=== PATIENT | female | born 1955 | race Caucasian/White ===

== ENCOUNTER 2022-01-05 13:35 | Inpatient (IN) ==
[2022-01-05] MEDS ORDERED: MoRPHine SULFATE 4 MG/ML 1 ML CARP\\VIAL IV STA (15:11)
[2022-01-05] MEDS ORDERED: ONDANSETRON INJ 2 MG/ML 2 ML VIAL IV STA (15:13)
[2022-01-05 15:19] LABS: Basophils # (auto) 0.01 K/uL (0-0.2); Basophils % (auto) 0.2 %; Eosinophils # (auto) 0.13 K/uL (0-0.5); Eosinophils % (auto) 3.1 %; Hematocrit (blood only) 33.1 % (37-47); Hemoglobin 10.9 g/dL (12.0-16.0); Lymphocytes # (auto) 1.38 K/uL (1.2-3.4); Lymphocytes % (auto) 33.1 %; Mean Corpuscular Hemoglobin 33.2 pg (25-34); Mean Corpuscular Hgb Conc 32.9 g/dL (32-36); Mean Corpuscular Volume 100.9 fL (80-100); Mean Platelet Volume 9.1 fL (7.4-10.4); Monocytes # (auto) 0.72 K/uL (0.11-0.59); Monocytes % (auto) 17.3 %; Neutrophils # (auto) 1.93 K/uL (1.4-6.5); Neutrophils % (auto) 46.3 %; Platelet Count 191 K/uL (130-400); RDW Coefficient of Variation 15.6 % (11.5-14.5); RDW Standard Deviation 57.1 fL (36.4-46.3); Red Blood Count 3.28 M/uL (4.2-5.4); White Blood Count 4.17 K/uL (4.8-10.8)
[2022-01-05 15:38] LABS: Albumin Globulin Ratio 1.3 (0.9-2); Albumin Level 3.8 gm/dl (3.4-5.0); BUN Creatinine Ratio 17.3 (10-20); Bilirubin,Total 0.5 mg/dl (0.2-1.0); Calcium 9.2 mg/dl (8.5-10.1); Creatinine Clr Calc Pharmacy 105.4 ml/min; Est GFR (African American) 116.2 ml/min; Est GFR (Non-African American) 100.3 ml/min; Globulin 2.9 gm/dl (2.5-4.0); Total Protein 6.7 gm/dl (6.0-8.3)
[2022-01-05] MEDS ORDERED: OPTIRAY 320 100ml IV ONE (15:59)
[2022-01-05] MEDS ORDERED: SODIUM CHLORIDE 0.9% 1000ML 1,000 ML IV ONE (16:08)
--- NOTE | 2022-01-05 16:11 | Emergency Department Note ---
Impression & Plan Small bowel obstruction, Primary cancer of ovary with widespread metastatic disease, Deep vein thrombosis (DVT) of iliac vein of right lower extremity ED Provider Note NAME: JUAN C MONTGOMERY AGE: 66 SEX: F ARRIVES VIA: Walk-In INFORMANT: Patient, daughter ED PROVIDER(S): Demario Fleming MD CHIEF COMPLAINT: Abdominal pain, nausea PLAN: Disposition: Admit MEDICAL DECISION MAKING: The patient is a pleasant 66-year-old woman with a past medical history of metastatic ovarian cancer who presents to the emergency department accompanied by her daughter for evaluation of acute onset abdominal pain that occurred this morning with associated nausea. She reports she has had some mild colicky pain over the past couple of days and worsened when she ate more solid foods and so it is more of a bland diet. Last night she ate pizza because she was feeling better and had a beer. She reports she did move her bowels this morning and this was normal without straining. However pain and nausea that she feels reminds her of when she was diagnosed with a bowel obstruction in May 2021 when she was diagnosed with her cancer and required surgery/bowel resection. Prior to today she denies any recent fevers, chills, cough, congestion, GI or symptoms. They report she recent completed chemotherapy with the [facility]. They report that they are in the process of having an outpatient consultation with surgery at [facility] for oophorectomy and possible revision of bowel anastomosis. On arrival the patient is uncomfortable but no acute distress, afebrile with stable vital signs. Abdomen is distended but soft. Mild-moderate mid abdominal tenderness to palpation. No rebound or guarding. WBC 4K proximate to prior values, nonspecific. H/H 10.9/33.1 slightly decreased from August 2021. Platelets within normal limits. Chemistry without metabolic acidosis. Electrolytes LFTs without significant abnormality. Lipase within normal limits. CT of the abdomen pelvis was performed and demonstrates findings consistent with high-grade small bowel obstruction. Comment is made of cluster of thick-walled twisted appearing and tethered bowel loops in the ventral lower abdomen likely related to adhesions. Note is made of focally thick walled bowel loops at the site of obstruction with mesenteric edema and interloop. No pneumatosis intestinalis or portal venous gas is seen. Note is additionally made of an indeterminate catheter wire from the lower chest that terminates in the right iliac vein with associated right iliac vein DVT. Unclear significance of this finding at this time. The patient and daughter report only vascular procedure the patient has had was at the beginning of September when she had her port placed in [place]. NG tube was ordered and placed with improvement in the patient's symptoms. Case was reviewed with Dr. Araujo, general surgery on-call. Appreciate consultations and recommendation that if the patient were to worsen or require surgery then transfer to tertiary care facility would be recommended given the patient's complex oncologic history. If patient remains here and improves they will follow for consultation. Case was d/w Dr. Cespedes, [facility] hospitalist who will evaluate the patient for admission. Triage Nursing notes reviewed and agree them. Prior medical records reviewed Vital Signs: reviewed and remarkable for no significant abnormalities Differential diagnosis: Appendicitis, ovarian cyst, ovarian torsion, ectopic , TOA, PID, infections, diverticulitis, UTI, obstruction, mesenteric ischemia, aortic pa thology, inflammatory bowel disease, renal colic, PUD, pancreatitis, biliary pathology, hernia, volvulus, constipation, as well as other pathologies. ER treatment provided: See below. Diagnostics interpreted by me: Cardiac Monitoring: An order for continuous cardiac monitoring was placed and demonstrated NSR, 67 bpm, no ectopy. Laboratory studies: See below Imaging studies: See below Consultation(s): Dr. Araujo, General surgery on-call. HPI: The patient is a pleasant 66-year-old woman with a past medical history of metastatic ovarian cancer who presents emerge department accompanied by her daughter for evaluation of acute onset abdominal pain that occurred this morning with associated nausea. She reports she has had some mild colicky pain over the past couple of days and worsened when she ate more solid foods and so it is more of a bland diet. Last night she ate pizza because she was feeling better and had a beer she reports she did move her bowels this morning and this was normal without straining. However pain and nausea that she feels reminds her of when she was diagnosed with a bowel obstruction in May 2021 when she was diagnosed with her cancer and required surgery. Prior to today she denies any recent fevers, chills, cough, congestion, GI or symptoms. ROS: See above HPI for pertinent positives & negatives. A total of 10 systems reviewed and were otherwise negative. PAST MEDICAL HISTORY:See Below PAST SURGICAL HISTORY:See Below FAMILY HISTORY:See Below SOCIAL HISTORY:See Below HOME MEDICATIONS:See Below ALLERGIES:See Below VITALS:See Below PHYSICAL EXAMINATION: GENERAL: Awake, alert, uncomfortable-appearing, in no distress HENT: Normocephalic, atraumatic. Oropharynx with dry mucous membranes and otherwise unremarkable. EYES: Normal conjunctiva. Sclera non-icteric. NECK: Supple. No nuchal rigidity. FROM. No JVD. RESPIRATORY: Clear to auscultation. CARDIAC: Regular rate, normal rhythm. Extremities warm and well perfused. Pulses equal. ABDOMEN: Mild distension but soft. Mild-moderate mid abdominal tenderness to palpation. No rebound or guarding. RECTAL: Deferred. MUSCULOSKELETAL: Chest examination reveals no tenderness. The back is symmetrical on inspection without obvious abnormality. There is no CVA tenderness to palpation. No joint edema. LOWER EXTREMITIES: Calves are equal size bilaterally and non-tender. No edema. No discoloration. NEURO: Normal sensorium. No sensory or motor deficits noted. SKIN: No rash or jaundice noted. ED COURSE: Critical Care: I have personally spent greater than 35 minutes of critical care time in the direct management of this patient. This includes bedside care, interpretation of diagnostic studies, and testing, discussion with consultants, patient, and family members, and other required patient management activities. This 35 minutes is in excess of all separately billable procedures. Demario Fleming MD Past Med/Surg History Medical History (Updated 01/05/22 @ 21:17 by Demario Fleming MD) Deep vein thrombosis (DVT) of iliac vein of right lower extremity Fracture of pubic ramus Primary cancer of ovary with widespread metastatic disease Small bowel obstruction Surgical History (Updated 01/05/22 @ 21:02 by JAVIER Torres) History of abdominal surgery History of bowel resection History of total right hip arthroplasty Social History Smoking Status: Current every day smoker Tobacco Type: E-cigarettes / Vaping Allergies Allergies Allergy/AdvReac Type Severity Reaction Status Date / Time codeine AdvReac Unknown Unknown Verified 01/05/22 15:51 ibuprofen AdvReac Unknown Unknown Verified 01/05/22 15:51 Home Meds Home Medications Medication Instructions Recorded Confirmed aspirin 81 mg tablet,delayed 81 mg PO DAILY 01/05/22 01/05/22 release cholecalciferol (vitamin D3) 50 50 mcg PO DAILY 01/05/22 01/05/22 mcg (2,000 unit) capsule (Vitamin D3) levothyroxine 100 mcg tablet 100 mcg PO DAILY 01/05/22 01/05/22 rosuvastatin 10 mg tablet 10 mg PO HS 01/05/22 01/05/22 sennosides 8.6 mg-docusate sodium See Rx Instructions .ROUTE .COMPLEX 01/05/22 01/05/22 50 mg tablet (Senokot-S) tramadol 50 mg tablet 50 mg PO Q8H PRN 01/05/22 01/05/22 Previous Rx's Medication Instructions Recorded Walking Cane #1 ea 06/22/20 Results & Data (ED) Vital Signs Vital Signs - 24 hr 01/05/22 13:36 01/05/22 14:40 01/05/22 16:35 Temperature 36.5 C Temperature Source Temporal Artery Scan Pulse Rate 87 Pulse Rate [Apical] 68 70 Respiratory Rate 18 17 17 Blood Pressure 134/69 Blood Pressure [Right Arm] 126/66 131/81 Blood Pressure Mean 90 Blood Pressure Mean [Right Arm] 86 97 Blood Pressure Position Sitting Pulse Oximetry 99 96 96 Oxygen Delivery Method Room Air Room Air Sepsis Recent Fever Within 48 Hours No Sepsis New/Unexplained Change in Mental Status No Sepsis Action Taken by Nursing No Action Required 01/05/22 18:00 01/05/22 20:00 Temperature Temperature Source Pulse Rate Pulse Rate [Apical] 69 67 Respiratory Rate 15 12 Blood Pressure Blood Pressure [Right Arm] 161/82 H 114/58 L Blood Pressure Mean Blood Pressure Mean [Right Arm] 108 76 Blood Pressure Position Pulse Oximetry 96 97 Oxygen Delivery Method Sepsis Recent Fever Within 48 Hours Sepsis New/Unexplained Change in Mental Status Sepsis Action Taken by Nursing Laboratory Data Attestation: I reviewed the patient's lab results. Result diagrams: 01/05/22 15:06 01/05/22 15:06 Lab Results 01/05/22 01/05/22 01/05/22 Range/Units 15:06 15:06 16:30 WBC 4.17 L (4.8-10.8) K/uL RBC 3.28 L (4.2-5.4) M/uL Hgb 10.9 L (12.0-16.0) g/dL Hct 33.1 L (37-47) % MCV 100.9 H (80-100) fL MCH 33.2 (25-34) pg MCHC 32.9 (32-36) g/dL RDW Std Deviation 57.1 H (36.4-46.3) fL RDW Coeff of Marianela 15.6 H (11.5-14.5) % Plt Count 191 (130-400) K/uL MPV 9.1 (7.4-10.4) fL Immature Gran % (Auto) 0.0 % Neut % (Auto) 46.3 % Lymph % (Auto) 33.1 % Heard % (Auto) 17.3 % Eos % (Auto) 3.1 % Baso % (Auto) 0.2 % Neut # (Auto) 1.93 (1.4-6.5) K/uL Lymph # (Auto) 1.38 (1.2-3.4) K/uL Heard # (Auto) 0.72 H (0.11-0.59) K/uL Eos # (Auto) 0.13 (0-0.5) K/uL Baso # (Auto) 0.01 (0-0.2) K/uL Immature Gran # (Auto) 0.00 (0.00-0.02) K/uL Sodium 134 L (136-145) mmol/L Potassium 4.0 (3.5-5.1) mmol/L Chloride 103 (98-107) mmol/L Carbon Dioxide 22 (21-32) mmol/L Anion Gap 9 (3-11) BUN 9 (6-23) mg/dl Creatinine 0.52 L (0.6-1.2) mg/dl Est Cr Clr Drug Dosing 105.4 ml/min Est GFR ( Amer) 116.2 ml/min Est GFR (Non-Af Amer) 100.3 ml/min BUN/Creatinine Ratio 17.3 (10-20) Glucose 81 (70-99(Fasting)) mg/dl Lactate (0.4-2.0) mmol/L Calcium 9.2 (8.5-10.1) mg/dl Total Bilirubin 0.5 (0.2-1.0) mg/dl AST 16 (13-39) U/L ALT 13 (7-52) U/L Alkaline Phosphatase 80 (34-104) U/L Total Protein 6.7 (6.0-8.3) gm/dl Albumin 3.8 (3.4-5.0) gm/dl Globulin 2.9 (2.5-4.0) gm/dl Albumin/Globulin Ratio 1.3 (0.9-2) Lipase 15 (11-82) U/L SARS-CoV-2, RNA, NAAT NEGATIVE (NEGATIVE) 01/05/22 Range/Units 18:22 WBC (4.8-10.8) K/uL RBC (4.2-5.4) M/uL Hgb (12.0-16.0) g/dL Hct (37-47) % MCV (80-100) fL MCH (25-34) pg MCHC (32-36) g/dL RDW Std Deviation (36.4-46.3) fL RDW Coeff of Marianela (11.5-14.5) % Plt Count (130-400) K/uL MPV (7.4-10.4) fL Immature Gran % (Auto) % Neut % (Auto) % Lymph % (Auto) % Heard % (Auto) % Eos % (Auto) % Baso % (Auto) % Neut # (Auto) (1.4-6.5) K/uL Lymph # (Auto) (1.2-3.4) K/uL Heard # (Auto) (0.11-0.59) K/uL Eos # (Auto) (0-0.5) K/uL Baso # (Auto) (0-0.2) K/uL Immature Gran # (Auto) (0.00-0.02) K/uL Sodium (136-145) mmol/L Potassium (3.5-5.1) mmol/L Chloride (98-107) mmol/L Carbon Dioxide (21-32) mmol/L Anion Gap (3-11) BUN (6-23) mg/dl Creatinine (0.6-1.2) mg/dl Est Cr Clr Drug Dosing ml/min Est GFR ( Amer) ml/min Est GFR (Non-Af Amer) ml/min BUN/Creatinine Ratio (10-20) Glucose (70-99(Fasting)) mg/dl Lactate 0.3 L (0.4-2.0) mmol/L Calcium (8.5-10.1) mg/dl Total Bilirubin (0.2-1.0) mg/dl AST (13-39) U/L ALT (7-52) U/L Alkaline Phosphatase (34-104) U/L Total Protein (6.0-8.3) gm/dl Albumin (3.4-5.0) gm/dl Globulin (2.5-4.0) gm/dl Albumin/Globulin Ratio (0.9-2) Lipase (11-82) U/L SARS-CoV-2, RNA, NAAT (NEGATIVE) Administered Medications Morphine Sulfate (Morphine Sulfate 4 Mg/Ml 1 Ml Carp\Vial) 2 mg IV Q2H PRN PRN Reason: Severe Pain (Rating 7,8,9,10) Stop: 01/19/22 18:34 Last Admin: 01/05/22 18:52 Dose: 2 mg Documented by: [id number] Ondansetron HCl (Ondansetron Inj 2 Mg/Ml 2 Ml Vial) 4 mg IV Q4H PRN PRN Reason: nausea Stop: 02/04/22 18:34 Last Admin: 01/05/22 18:52 Dose: 4 mg Documented by: [id number] Discontinued Medications Sodium Chloride (Nss 1000ml) 1,000 mls @ 999 mls/hr IV .Q1H1M ONE Stop: 01/05/22 17:08 Last Infusion: 01/05/22 18:03 Dose: 0 mls/hr Documented by: [id number] Admin: 01/05/22 16:31 Dose: 999 mls/hr Documented by: [id number] Ioversol (Optiray 320 100ml) 94 ml IV ONCE ONE Stop: 01/05/22 16:00 Last Admin: 01/05/22 16:00 Dose: 94 ml Documented by: [id number] Morphine Sulfate (Morphine Sulfate 4 Mg/Ml 1 Ml Carp\Vial) 4 mg IV NOW STA Stop: 01/05/22 15:12 Last Admin: 01/05/22 15:20 Dose: 4 mg Documented by: [id number] Morphine Sulfate (Morphine Sulfate 2 Mg/Ml Carp) 2 mg IV NOW STA Stop: 01/05/22 20:15 Last Admin: 01/05/22 21:01 Dose: 2 mg Documented by: [id number] Ondansetron HCl (Ondansetron Inj 2 Mg/Ml 2 Ml Vial) 4 mg IV NOW STA Stop: 01/05/22 15:14 Last Admin: 01/05/22 15:20 Dose: 4 mg Documented by: [id number] Imaging Data Radiologist's Impression: KUB X-Ray 01/05/22 13:42 KUB HISTORY: Acute generalized abdominal pain abd pain; hx obstructions COMPARISON: CT abdomen and pelvis of same day FINDINGS: Catheter overlying the right atrium, IVC and right iliac vein redemonstrated. Retained contrast in the renal collecting systems and urinary bladder. Persistent small bowel obstruction. No renal calculi. No ureteral calculi. No pneumoperitoneum or pneumatosis. Partially imaged ORIF hardware of the right proximal femur. No fracture. IMPRESSION: 1. Persistent small bowel obstruction. 2. IVC and right iliac vein catheter redemonstrated. ACT 112: Negative or not required by law. The above report was generated using voice recognition software. It may contain grammatical, syntax or spelling errors. Electronically signed by: Mauro Marlow M.D. 01/05/2022 4:31 PM Abdomen/Pelvis CT 01/05/22 14:58 CT SCAN OF THE ABDOMEN AND PELVIS WITH IV CONTRAST CLINICAL HISTORY: Generalized abdominal pain. Nausea. Metastatic disease. COMPARISON STUDY: PET/CT dated 09/07/2021. TECHNIQUE: Following the IV administration of 94 cc of Optiray 320, CT scan of the abdomen and pelvis is performed from the lung bases to the proximal femora. Images are reviewed in the axial, sagittal, and coronal planes. IV contrast was administered without complication. A dose lowering technique was utilized adhering to the principles of ALARA. CT DOSE: 664.27 mGycm FINDINGS: Lung bases: The heart is normal in size and without pericardial effusion. The lung bases are clear. Liver: The contrast-enhanced liver is normal in size, contour, and attenuation. There is no intrahepatic biliary ductal dilatation. The hepatic veins and portal veins are patent. Gallbladder: Unremarkable. Spleen: Normal in size and attenuation. Pancreas: Unremarkable. Adrenal glands: Unremarkable. Kidneys: The contrast enhanced kidneys are normal in size and without hydronephrosis. The kidneys enhance symmetrically. Foci of cortical scarring are noted in both kidneys. Small cyst or calyceal diverticula are noted in the left kidney. Abdominal vasculature: The abdominal aorta is normal in course and caliber noting advanced atherosclerotic calcification. An indeterminant catheter extends from the thorax, traverses the heart and IVC, and terminates in the right iliac vein. There is deep venous thrombosis of the right iliac vein Bowel: A small bowel anastomosis is noted in the midabdomen. There is a cluster of focally dilated small bowel loops in the ventral mid abdomen which measure up to 3 cm. The upstream and downstream small bowel loops are decompressed, and there are focally thick walled and twisted bowel loops in this region which appear tethered on image #211. There is associated mesenteric edema and interloop fluid. Findings are consistent with a bowel obstruction. No pneumato sis intestinalis or portal venous gas is seen. The appendix is well-visualized and normal. Peritoneum: There is no intraperitoneal free air or abdominal ascites. There is laxity of the ventral abdominal wall with diastases of the rectus musculature and protrusion of abdominal contents. Lymphadenopathy: None. Pelvic viscera: The bladder is normal as visualized. The uterus is surgically absent. No adnexal lesion is seen. Skeletal structures: The skeletal structures are osteopenic. There are chronic compression deformities of L2, L3, and L4. Mild to moderate lumbosacral spondylosis is observed. Sclerotic change is noted in the pubic symphysis. No lytic or blastic lesions are seen. Postoperative change is noted in the right proximal femur. IMPRESSION: 1. Findings are consistent with a high-grade small bowel obstruction. There is a cluster of thick-walled, twisted appearing, and tethered bowel loops in the ventral lower abdomen and this is likely on the basis of adhesions. 2. There are focally thick walled bowel loops at the site of obstruction with mesenteric edema and interloop fluid. No pneumatosis intestinalis or portal venous gas is seen. These loops may be risk for ischemia and surgical assessment is advised. 3. An indeterminant catheter or wire extends from the lower chest, traverses the heart and IVC, and terminates in the right iliac vein. There is associated right iliac vein deep venous thrombosis. 4. No intraperitoneal free air is identified. 5. Additional findings as above. ACT 112: Negative or not required by law. Electronically signed by: Sarath Roy M.D. 01/05/2022 4:21 PM Chest X-Ray 01/05/22 17:35 XR chest 1V portable CLINICAL HISTORY: eval NG tube COMPARISON STUDY: KUB performed earlier today. FINDINGS: Right internal jugular [id number] is in place. An indeterminate catheter or wire within the right lower neck, chest and upper abdomen is noted. This is venous in location. Tip of nasogastric tube is below the lower aspect of this image but at least within the gastric cardia. No pneumothorax or pleural effusion is noted. Cardiac size is normal. IMPRESSION: 1. Tip of nasogastric tube below the lower aspect of this image but at least within the gastric cardia. 2. Redemonstration of an indeterminate catheter or wire which traverses the rig ht internal jugular vein, SVC, heart and IVC. ACT 112: Negative or not required by law. Electronically signed by: Brenden Arboleda M.D. 01/05/2022 5:57 PM KUB X-Ray 01/05/22 20:37 KUB CLINICAL HISTORY: NG tube placement COMPARISON STUDY: KUB performed earlier today. FINDINGS: Tip of nasogastric tube is within the body of the stomach. A suspected venous wire within the chest and abdomen is again noted. IMPRESSION: Tip of nasogastric tube within the body of the stomach. ACT 112: Negative or not required by law. Electronically signed by: Brenden Arboleda M.D. 01/05/2022 9:03 PM Discharge Plan Visit Data Chief Complaint: Abdominal Pain Stated Complaint: ABDOM PAIN ED Provider: Demario Fleming Discharge Problem: Small bowel obstruction, Primary cancer of ovary with widespread metastatic disease, Deep vein thrombosis (DVT) of iliac vein of right lower extremity Forms Stand Alone Forms: [employer] Prescriptions Prescriptions: No Action (DME) Walking Cane Misc See Rx Instructions .ROUTE .MEDSUPPLY Qty: 1 RF: 0 sennosides-docusate sodium [Senokot-S] 8.6-50 mg Tablet See Rx Instructions .ROUTE .COMPLEX RF: 0 aspirin 81 mg Tablet,Delayed Release (Dr/Ec) 81 mg PO DAILY RF: 0 tramadol 50 mg tablet 50 mg PO Q8H PRN (Reason: Pain) RF: 0 levothyroxine 100 mcg tablet 100 mcg PO DAILY RF: 0 rosuvastatin 10 mg tablet 10 mg PO HS RF: 0 cholecalciferol (vitamin D3) [Vitamin D3] 50 mcg (2,000 unit) Capsule 50 mcg PO DAILY RF: 0 Referrals Referrals: Ramírez Alexander [Primary Care Provider] -
--- NOTE | 2022-01-05 16:22 | CT Scan Report ---
CT SCAN OF THE ABDOMEN AND PELVIS WITH IV CONTRAST CLINICAL HISTORY: Generalized abdominal pain. Nausea. Metastatic disease. COMPARISON STUDY: PET/CT dated 09/07/2021. TECHNIQUE: Following the IV administration of 94 cc of Optiray 320, CT scan of the abdomen and pelvi s is performed from the lung bases to the proximal femora. Images are reviewed in the axial, sagittal , and coronal planes. IV contrast was administered without complication. A dose lowering technique wa s utilized adhering to the principles of ALARA. CT DOSE: 664.27 mGycm FINDINGS: Lung bases: The heart is normal in size and without pericardial effusion. The lung bases are clear. Liver: The contrast-enhanced liver is normal in size, contour, and attenuation. There is no intrahepa tic biliary ductal dilatation. The hepatic veins and portal veins are patent. Gallbladder: Unremarkable. Spleen: Normal in size and attenuation. Pancreas: Unremarkable. Adrenal glands: Unremarkable. Kidneys: The contrast enhanced kidneys are normal in size and without hydronephrosis. The kidneys enh ance symmetrically. Foci of cortical scarring are noted in both kidneys. Small cyst or calyceal diver ticula are noted in the left kidney. Abdominal vasculature: The abdominal aorta is normal in course and caliber noting advanced atheroscle rotic calcification. An indeterminant catheter extends from the thorax, traverses the heart and IVC, and terminates in the right iliac vein. There is deep venous thrombosis of the right iliac vein Bowel: A small bowel anastomosis is noted in the midabdomen. There is a cluster of focally dilated sm all bowel loops in the ventral mid abdomen which measure up to 3 cm. The upstream and downstream smal l bowel loops are decompressed, and there are focally thick walled and twisted bowel loops in this re gion which appear tethered on image #211. There is associated mesenteric edema and interloop fluid. F indings are consistent with a bowel obstruction. No pneumatosis intestinalis or portal venous gas is seen. The appendix is well-visualized and normal. Peritoneum: There is no intraperitoneal free air or abdominal ascites. There is laxity of the ventral abdominal wall with diastases of the rectus musculature and protrusion of abdominal contents. Lymphadenopathy: None. Pelvic viscera: The bladder is normal as visualized. The uterus is surgically absent. No adnexal lesi on is seen. Skeletal structures: The skeletal structures are osteopenic. There are chronic compression deformitie s of L2, L3, and L4. Mild to moderate lumbosacral spondylosis is observed. Sclerotic change is noted in the pubic symphysis. No lytic or blastic lesions are seen. Postoperative change is noted in the ri ght proximal femur. IMPRESSION: 1. Findings are consistent with a high-grade small bowel obstruction. There is a cluster of thick-wal led, twisted appearing, and tethered bowel loops in the ventral lower abdomen and this is likely on t he basis of adhesions. 2. There are focally thick walled bowel loops at the site of obstruction with mesenteric edema and in terloop fluid. No pneumatosis intestinalis or portal venous gas is seen. These loops may be risk for ischemia and surgical assessment is advised. 3. An indeterminant catheter or wire extends from the lower chest, traverses the heart and IVC, and t erminates in the right iliac vein. There is associated right iliac vein deep venous thrombosis. 4. No intraperitoneal free air is identified. 5. Additional findings as above. ACT 112: Negative or not required by law. Electronically signed by: Sarath Roy M.D. 01/05/2022 4:21 PM
--- NOTE | 2022-01-05 16:32 | XRay Report ---
KUB HISTORY: Acute generalized abdominal pain abd pain; hx obstructions COMPARISON: CT abdomen and pelvis of same day FINDINGS: Catheter overlying the right atrium, IVC and right iliac vein redemonstrated. Retained cont rast in the renal collecting systems and urinary bladder. Persistent small bowel obstruction. No robyn al calculi. No ureteral calculi. No pneumoperitoneum or pneumatosis. Partially imaged ORIF hardware o f the right proximal femur. No fracture. IMPRESSION: 1. Persistent small bowel obstruction. 2. IVC and right iliac vein catheter redemonstrated. ACT 112: Negative or not required by law. The above report was generated using voice recognition software. It may contain grammatical, syntax o r spelling errors. Electronically signed by: Mauro Marlow M.D. 01/05/2022 4:31 PM
--- NOTE | 2022-01-05 17:59 | XRay Report ---
XR chest 1V portable CLINICAL HISTORY: eval NG tube COMPARISON STUDY: KUB performed earlier today. FINDINGS: Right internal jugular [id number] is in place. An indeterminate catheter or wire within the right lower neck, chest and upper abdomen is noted. This is venous in location. Tip of nasogastri c tube is below the lower aspect of this image but at least within the gastric cardia. No pneumothora x or pleural effusion is noted. Cardiac size is normal. IMPRESSION: 1. Tip of nasogastric tube below the lower aspect of this image but at least within the gastric cardi a. 2. Redemonstration of an indeterminate catheter or wire which traverses the right internal jugular ve in, SVC, heart and IVC. ACT 112: Negative or not required by law. Electronically signed by: Brenden Arboleda M.D. 01/05/2022 5:57 PM
--- NOTE | 2022-01-05 18:00 | Surgery Consultation ---
Date of Consultation January 05, 2022 Assessment & Plan (1) Small bowel obstruction: 66-year-old female with recent small bowel resection secondary to metastatic ovarian cancer, here with new bowel obstruction. She is currently on chemotherapy and received her last dose 2 weeks ago. Bowel obstructions for her metastatic ovarian cancer are typically very difficult operations and often require large resections of matted bowel versus performing a bypass in continuity. Given her history, the fact she is on chemotherapy, and the appearance on CT I do not feel she needs an emergent operation, however if she were to need operative intervention I would recommend she be transferred to a [facility] center. If the patient is admitted to this facility we will follow while in house. Also the patient is noted to have a foreign body within her right iliac vein extending superiorly with an associated DVT. Would recommend vascular consultation. Any anticoagulation should be limited to short-term such as heparin drip if necessary if any surgical intervention is required for her bowel obstruction in the near future. No surgical intervention at this time NG tube placed, n.p.o., IV fluids KUB in the morning Vascular consultation If general surgical intervention is indicated, would recommend transfer to a tertiary facility. General surgery can follow if remains in house (2) Primary cancer of ovary with widespread metastatic disease: (3) Deep vein thrombosis (DVT) of iliac vein of right lower extremity: History of Present Illness Reason for Consultation: Small bowel obstruction History of Present Illness 66-year-old female presented to the emergency department with abdominal pain. She had a history of that of a small bowel obstruction in May 2021 and u nderwent laparotomy with small bowel resection at [facility] by Dr. Remington Shepard. Pathology showed metastatic ovarian cancer. She is currently undergoing chemotherapy and received her last dose on 20 December. She developed a hernia few months ago. She is following with a oncologic beauty sales advisor at [place] and is receiving her cancer treatments with Dr. Luong. Over the past few days she has been having some crampy abdominal pain and has been eating smaller meals. Last night she ate some pizza and developed severe abdominal pain today. She did have a normal bowel movement today. She has not passed flatus since this morning. She had a small amount of emesis here. She feels similar to her prior episode of bowel obstruction. She is not currently on any blood thinners. Allergies Allergy/AdvReac Type Severity Reaction Status Date / Time codeine AdvReac Unknown Unknown Verified 01/05/22 15:51 ibuprofen AdvReac Unknown Unknown Verified 01/05/22 15:51 Home Medications Medication Instructions Recorded Confirmed Type Walking Cane #1 ea 06/22/20 08/05/20 Rx aspirin 81 mg tablet,delayed 81 mg PO DAILY 01/05/22 01/05/22 History release cholecalciferol (vitamin D3) 50 50 mcg PO DAILY 01/05/22 01/05/22 History mcg (2,000 unit) capsule (Vitamin D3) levothyroxine 100 mcg tablet 100 mcg PO DAILY 01/05/22 01/05/22 History rosuvastatin 10 mg tablet 10 mg PO HS 01/05/22 01/05/22 History sennosides 8.6 mg-docusate sodium See Rx Instructions .ROUTE .COMPLEX 01/05/22 01/05/22 History 50 mg tablet (Senokot-S) tramadol 50 mg tablet 50 mg PO Q8H PRN 01/05/22 01/05/22 History Patient History Medical History (Updated 01/05/22 @ 18:41 by See Araujo DO, FACS) Deep vein thrombosis (DVT) of iliac vein of right lower extremity Fracture of pubic ramus Primary cancer of ovary with widespread metastatic disease Small bowel obstruction Social History Smoking Status: Current every day smoker Tobacco Type: E-cigarettes / Vaping Review of Systems Review of Systems: All systems reviewed & are unremarkable except as noted in HPI & below Physical Exam Constitutional: WD/WN, vitals as above Respiratory: normal respiratory effort, lungs clear to auscultation Cardiovascular: RRR, no murmur, no edema Gastrointestinal (Abdomen): Inspection/Auscultation: + abdominal surgical scar (Midline) Percussion/Palpation: + abdomen tender (Mild to moderate tenderness to palpation in mid abdomen), abdomen soft and + hernia (Incisional, reducible); no guarding and abdomen not rigid Results & Data ([facility]) Vital Signs (Past 12 Hours) Vital Signs Temp Pulse Pulse Resp BP BP Pulse Ox 01/05/22 16:35 70 17 131/81 96 01/05/22 14:40 68 17 126/66 96 01/05/22 13:36 36.5 C 87 18 134/69 99 Laboratory Results Laboratory Results - last 24 hr 01/05/22 01/05/22 01/05/22 15:06 15:06 16:30 WBC 4.17 L RBC 3.28 L Hgb 10.9 L Hct 33.1 L MCV 100.9 H MCH 33.2 MCHC 32.9 RDW Std Deviation 57.1 H RDW Coeff of Marianela 15.6 H Plt Count 191 MPV 9.1 Immature Gran % (Auto) 0.0 Neut % (Auto) 46.3 Lymph % (Auto) 33.1 [place] % (Auto) 17.3 Eos % (Auto) 3.1 Baso % (Auto) 0.2 Neut # (Auto) 1.93 Lymph # (Auto) 1.38 [place] # (Auto) 0.72 H Eos # (Auto) 0.13 Baso # (Auto) 0.01 Immature Gran # (Auto) 0.00 Sodium 134 L Potassium 4.0 Chloride 103 Carbon Dioxide 22 Anion Gap 9 BUN 9 Creatinine 0.52 L Est Cr Clr Drug Dosing 105.4 Est GFR ( Amer) 116.2 Est GFR (Non-Af Amer) 100.3 BUN/Creatinine Ratio 17.3 Glucose 81 Calcium 9.2 Total Bilirubin 0.5 AST 16 ALT 13 Alkaline Phosphatase 80 Total Protein 6.7 Albumin 3.8 Globulin 2.9 Albumin/Globulin Ratio 1.3 Lipase 15 SARS-CoV-2, RNA, NAAT NEGATIVE Diagnostic Findings CT SCAN OF THE ABDOMEN AND PELVIS WITH IV CONTRAST CLINICAL HISTORY: Generalized abdominal pain. Nausea. Metastatic disease. COMPARISON STUDY: PET/CT dated 09/07/2021. TECHNIQUE: Following the IV administration of 94 cc of Optiray 320, CT scan of the abdomen and pelvis is performed from the lung bases to the proximal femora. Images are reviewed in the axial, sagittal, and coronal planes. IV contrast was administered without complication. A dose lowering technique was utilized adhering to the principles of ALARA. CT DOSE: 664.27 mGycm FINDINGS: Lung bases: The heart is normal in size and without pericardial effusion. The lung bases are clear. Liver: The contrast-enhanced liver is normal in size, contour, and attenuation. There is no intrahepatic biliary ductal dilatation. The hepatic veins and portal veins are patent. Gallbladder: Unremarkable. Spleen: Normal in size and attenuation. Pancreas: Unremarkable. Adrenal glands: Unremarkable. Kidneys: The contrast enhanced kidneys are normal in size and without hydronephrosis. The kidneys enhance symmetrically. Foci of cortical scarring are noted in both kidneys. Small cyst or calyceal diverticula are noted in the left kidney. Abdominal vasculature: The abdominal aorta is normal in course and caliber noting advanced atherosclerotic calcification. An indeterminant catheter extends from the thorax, traverses the heart and IVC, and terminates in the right iliac vein. There is deep venous thrombosis of the right iliac vein Bowel: A small bowel anastomosis is noted in the midabdomen. There is a cluster of focally dilated small bowel loops in the ventral mid abdomen which measure up to 3 cm. The upstream and downstream small bowel loops are decompressed, and there are focally thick walled and twisted bowel loops in this region which appear tethered on image #211. There is associated mesenteric edema and interloop fluid. Findings are consistent with a bowel obstruction. No pneumatosis intestinalis or portal venous gas is seen. The appendix is well- visualized and normal. Peritoneum: There is no intraperitoneal free air or abdominal ascites. There is laxity of the ventral abdominal wall with diastases of the rectus musculature and protrusion of abdominal contents. Lymphadenopathy: None. Pelvic viscera: The bladder is normal as visualized. The uterus is surgically absent. No adnexal lesion is seen. Skeletal structures: The skeletal structures are osteopenic. There are chronic compression deformities of L2, L3, and L4. Mild to moderate lumbosacral spondylosis is observed. Sclerotic change is noted in the pubic symphysis. No lytic or blastic lesions are seen. Postoperative change is noted in the right proximal femur. IMPRESSION: 1. Findings are consistent with a high-grade small bowel obstruction. There is a cluster of thick-walled, twisted appearing, and tethered bowel loops in the ventral lower abdomen and this is likely on the basis of adhesions. 2. There are focally thick walled bowel loops at the site of obstruction with mesenteric edema and interloop fluid. No pneumatosis intestinalis or portal venous gas is seen. These loops may be risk for ischemia and surgical assessment is advised. 3. An indeterminant catheter or wire extends from the lower chest, traverses the heart and IVC, and terminates in the right iliac vein. There is associated right iliac vein deep venous thrombosis. 4. No intraperitoneal free air is identified. 5. Additional findings as above. PG Care Time/CCT Total # of Minutes Spent Total Time Spent with Patient: Total time spent is greater than 50% in coordination of care (as documented) at patient's floor/unit and/or counseling patient: Coding Level of Care Code 65073 Office/Outpt Visit, New Diagnoses Small bowel obstruction K56.609 Primary cancer of ovary with widespread metastatic disease C56.9; C80.0 Deep vein thrombosis (DVT) of iliac vein of right lower extremity I82.421
[2022-01-05] MEDS ORDERED: MoRPHine SULFATE 4 MG/ML 1 ML CARP\\VIAL IV PRN (18:35)
[2022-01-05] MEDS ORDERED: MoRPHine SULFATE 2 MG/ML CARP IV PRN (18:35)
[2022-01-05] MEDS: ONDANSETRON INJ 2 MG/ML 2 ML VIAL IV PRN (18:52)
--- NOTE | 2022-01-05 20:02 | History & Physical Report ---
Date of Service January 05, 2022 Assessment & Plan (1) Primary cancer of ovary with widespread metastatic disease: Plan: The right ovary measures 2.8 x 0.8 x 1.2 cm and the left ovary measures 2.2 x 0.9 x 0.9 cm- from pelvic ultrasound in 10/02 .- Was working on plans for surgical intervention (2) Deep vein thrombosis (DVT) of iliac vein of right lower extremity: Plan: Noted to be on same side as incidentally found indeterminant wire - Heparin drip low dose no bolus (3) Small bowel obstruction: Plan: NGT in place, surgical evaluation appreciated - LR 110 ml/hr - Morphine for pain - Zofran for nausea - Follow with KUB - (4) DDD (degenerative disc disease), lumbosacral: Plan: Chornic pain with comproession deformities of L2-L3-L4 History of Present Illness Primary Care Provider: Ramírez Alexander 66 YOF with past medical history of: hypothymism, HLD, Ovarian cancer primary with metastatic disease to the stomach, treated with abdominal tumor resection with bowel removal and reanastomosis. Her path results from this surgery was reported as complicated and the patient went to [facility] for interpretation and diagnosis. She had a Medi-port placed in October 02 and started her Chemotherapy regime at [facility] with Dr. Luong locally. Her clinical course post surgery has been complicated with what appears as a ventral hernia. She comes in today for acute onset of abdominal pain this morning followed by nausea and vomiting. She was diagnosed with a high grade small bowel obstruction possibly caused by adhesions. She had a surgical consult completed- as not an emergent need for surgery at this time, they placed NG tube to LIWS and if surgery was needed related to her complexity and oncological history transfer to tertiary care center. I have consulted surgical oncology at [facility]. Her case will be discussed and plan developed. She will be kept on transfer list and call us back with update. If she were to worsen acutely also call back for transfer. Her original Oncologist is no longer at [facility]. She was also noted to have indeterminant wire in her IJ to her right illiac vein and associated with Right iliac vein DVT noted on CT scan that was done with IV contrast. The patient also is noted on her CXR and CT scan of her abdomen and pelvis to have an indeterminant wire from her IJ that traverses her IVC, heart and SVC terminating in her right iliac vein. The patient is unsure what this may be from as she can not recall any recent procedures. She had her Mediport placed in September at [facility] has requested operative reports from this. She had a PET scan performed in and this object is not revealed on that imaging. Allergies Allergy/AdvReac Type Severity Reaction Status Date / Time codeine AdvReac Unknown Unknown Verified 01/05/22 15:51 ibuprofen AdvReac Unknown Unknown Verified 01/05/22 15:51 Home Medications Medication Instructions Recorded Confirmed Type Walking Cane #1 ea 06/22/20 08/05/20 Rx aspirin 81 mg tablet,delayed 81 mg PO DAILY 01/05/22 01/05/22 History release cholecalciferol (vitamin D3) 50 50 mcg PO DAILY 01/05/22 01/05/22 History mcg (2,000 unit) capsule (Vitamin D3) levothyroxine 100 mcg tablet 100 mcg PO DAILY 01/05/22 01/05/22 History rosuvastatin 10 mg tablet 10 mg PO HS 01/05/22 01/05/22 History sennosides 8.6 mg-docusate sodium See Rx Instructions .ROUTE .COMPLEX 01/05/22 01/05/22 History 50 mg tablet (Senokot-S) tramadol 50 mg tablet 50 mg PO Q8H PRN 01/05/22 01/05/22 History Past Med/Surg History Medical History (Updated 01/06/22 @ 11:50 by Beryl Cerna MD) Deep vein thrombosis (DVT) of iliac vein of right lower extremity Foreign body accidentally left during a procedure Fracture of pubic ramus Primary cancer of ovary with widespread metastatic disease Small bowel obstruction Surgical History History of abdominal surgery History of bowel resection History of total right hip arthroplasty Social History Smoking Status: Current every day smoker Tobacco Type: E-cigarettes / Vaping Second Hand Exposure: Yes; Do You Dip or Chew Tobacco: No; Hx Alcohol Use: Yes Hx Substance Use: No Preferred Language: Colombian Communication Ability: Effective 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 Required: No Beliefs That Will Affect Care: None Current Living Situation: Spouse Other Information That Helps Us Care for You: No Feels Safe at Home: Yes Safety Concerns: Feels Safe At This Time Assistive Devices: Cane Assistive Devices Comment: uses cane as needed Review of Systems Review of Systems: REVIEW OF SYSTEMS: Constitutional: No fever, sweats or chills Eyes: No diplopia, no worsening or blurred vision ENT: normal hearing, no trouble swallowing Respiratory: No cough, sputum, dyspnea at rest or on exertion Cardiovascular: No chest pain, tightness or palpitations Abdomen: (+)pain, nausea, vomiting, NO diarrhea or constipation Musculoskeletal: (+) right leg hip pain, No joint pain, calf pain, swelling Neurologic: No weakness, numbness/tingling, or balance problems Psychiatric: No anxiety or depression Skin: No rash or itch Physical Exam Physical Exam: PHYSICAL EXAM: General: awake, alert, no apparent distress Head: Normocephalic, atraumatic ENT: PERRL, EOMI, no pharyngeal exudate, mucous membranes moist Neuro: AAO x 3, speech clear and appropriate, strength intact bilaterally 5/5, sensation intact and equal all extremities and dermatomes, no pronator drift Chest: equal rise and fall of the chest, no accessory muscle use, no heaves or thrills, Clear to auscultation, on room air, Cardiac: Regular rate and rhythm, telemetry reviewed, skin warm dry, cap refill <3 seconds, peripheral pulses +2 no JVD, no murmur, (+) 1 edema to right lower leg, GI: hypoactive bowel sounds throughout, soft, tender to palpation, no rebound, guarding or tenderness : Spontaneously voiding, no pain, no CVA tenderness, Psych: Normal mood and affect Skin: no rash or erythema Results & Data Results & Data ([facility]) Vital Signs (Past 12 Hours) Vital Signs Temp Pulse Pulse Resp BP BP Pulse Ox 01/05/22 18:00 69 15 161/82 H 96 01/05/22 16:35 70 17 131/81 96 01/05/22 14:40 68 17 126/66 96 01/05/22 13:36 36.5 C 87 18 134/69 99 Laboratory Results Abnormal lab results 01/05/22 01/05/22 01/05/22 Range/Units 15:06 15:06 18:22 WBC 4.17 L (4.8-10.8) K/uL RBC 3.28 L (4.2-5.4) M/uL Hgb 10.9 L (12.0-16.0) g/dL Hct 33.1 L (37-47) % MCV 100.9 H (80-100) fL RDW Std Deviation 57.1 H (36.4-46.3) fL RDW Coeff of Marianela 15.6 H (11.5-14.5) % [place] # (Auto) 0.72 H (0.11-0.59) K/uL Sodium 134 L (136-145) mmol/L Creatinine 0.52 L (0.6-1.2) mg/dl Lactate 0.3 L (0.4-2.0) mmol/L Diagnostic Findings KUB X-Ray 01/05/22 13:42 KUB HISTORY: Acute generalized abdominal pain abd pain; hx obstructions COMPARISON: CT abdomen and pelvis of same day FINDINGS: Catheter overlying the right atrium, IVC and right iliac vein redemonstrated. Retained contrast in the renal collecting systems and urinary bladder. Persistent small bowel obstruction. No renal calculi. No ureteral calculi. No pneumoperitoneum or pneumatosis. Partially imaged ORIF hardware of the right proximal femur. No fracture. IMPRESSION: 1. Persistent small bowel obstruction. 2. IVC and right iliac vein catheter redemonstrated. ACT 112: Negative or not required by law. The above report was generated using voice recognition software. It may contain grammatical, syntax or spelling errors. Electronically signed by: Mauro Marlow M.D. 01/05/2022 4:31 PM Abdomen/Pelvis CT 01/05/22 14:58 CT SCAN OF THE ABDOMEN AND PELVIS WITH IV CONTRAST CLINICAL HISTORY: Generalized abdominal pain. Nausea. Metastatic disease. COMPARISON STUDY: PET/CT dated 09/07/2021. TECHNIQUE: Following the IV administration of 94 cc of Optiray 320, CT scan of the abdomen and pelvis is performed from the lung bases to the proximal femora. Images are reviewed in the axial, sagittal, and coronal planes. IV contrast was administered without complication. A dose lowering technique was utilized adhering to the principles of ALARA. CT DOSE: 664.27 mGycm FINDINGS: Lung bases: The heart is normal in size and without pericardial effusion. The lung bases are clear. Liver: The contrast-enhanced liver is normal in size, contour, and attenuation. There is no intrahepatic biliary ductal dilatation. The hepatic veins and portal veins are patent. Gallbladder: Unremarkable. Spleen: Normal in size and attenuation. Pancreas: Unremarkable. Adrenal glands: Unremarkable. Kidneys: The contrast enhanced kidneys are normal in size and without hydronephrosis. The kidneys enhance symmetrically. Foci of cortical scarring are noted in both kidneys. Small cyst or calyceal diverticula are noted in the left kidney. Abdominal vasculature: The abdominal aorta is normal in course and caliber noting advanced atherosclerotic calcification. An indeterminant catheter extends from the thorax, traverses the heart and IVC, and terminates in the right iliac vein. There is deep venous thrombosis of the right iliac vein Bowel: A small bowel anastomosis is noted in the midabdomen. There is a cluster of focally dilated small bowel loops in the ventral mid abdomen which measure up to 3 cm. The upstream and downstream small bowel loops are decompressed, and there are focally thick walled and twisted bowel loops in this region which appear tethered on image #211. There is associated mesenteric edema and interloop fluid. Findings are consistent with a bowel obstruction. No pneumatosis intestinalis or portal venous gas is seen. The appendix is well-visualized and normal. Peritoneum: There is no intraperitoneal free air or abdominal ascites. There is laxity of the ventral abdominal wall with diastases of the rectus musculature and protrusion of abdominal contents. Lymphadenopathy: None. Pelvic viscera: The bladder is normal as visualized. The uterus is surgically absent. No adnexal lesion is seen. Skeletal structures: The skeletal structures are osteopenic. There are chronic compression deformities of L2, L3, and L4. Mild to moderate lumbosacral spondylosis is observed. Sclerotic change is noted in the pubic symphysis. No lytic or blastic lesions are seen. Postoperative change is noted in the right proximal femur. IMPRESSION: 1. Findings are consistent with a high-grade small bowel obstruction. There is a cluster of thick-walled, twisted appearing, and tethered bowel loops in the ventral lower abdomen and this is likely on the basis of adhesions. 2. There are focally thick walled bowel loops at the site of obstruction with m esenteric edema and interloop fluid. No pneumatosis intestinalis or portal venous gas is seen. These loops may be risk for ischemia and surgical assessment is advised. 3. An indeterminant catheter or wire extends from the lower chest, traverses the heart and IVC, and terminates in the right iliac vein. There is associated right iliac vein deep venous thrombosis. 4. No intraperitoneal free air is identified. 5. Additional findings as above. ACT 112: Negative or not required by law. Electronically signed by: Sarath Roy M.D. 01/05/2022 4:21 PM Chest X-Ray 01/05/22 17:35 XR chest 1V portable CLINICAL HISTORY: eval NG tube COMPARISON STUDY: KUB performed earlier today. FINDINGS: Right internal jugular [id number] is in place. An indeterminate catheter or wire within the right lower neck, chest and upper abdomen is noted. This is venous in location. Tip of nasogastric tube is below the lower aspect of this image but at least within the gastric cardia. No pneumothorax or pleural effusion is noted. Cardiac size is normal. IMPRESSION: 1. Tip of nasogastric tube below the lower aspect of this image but at least within the gastric cardia. 2. Redemonstration of an indeterminate catheter or wire which traverses the right internal jugular vein, SVC, heart and IVC. ACT 112: Negative or not required by law. Electronically signed by: Brenden Arboleda M.D. 01/05/2022 5:57 PM Medications Administered Home Medications Walking Cane #1 ea 06/22/20 [Rx Confirmed 08/05/20] aspirin 81 mg tablet,delayed release 81 mg PO DAILY 01/05/22 [History Confirmed 01/05/22] cholecalciferol (vitamin D3) 50 mcg (2,000 unit) capsule (Vitamin D3) 50 mcg PO DAILY 01/05/22 [History Confirmed 01/05/22] levothyroxine 100 mcg tablet 100 mcg PO DAILY 01/05/22 [History Confirmed 01/05/22] rosuvastatin 10 mg tablet 10 mg PO HS 01/05/22 [History Confirmed 01/05/22] sennosides 8.6 mg-docusate sodium 50 mg tablet (Senokot-S) See Rx Instructions .ROUTE .COMPLEX 01/05/22 [History Confirmed 01/05/22] tramadol 50 mg tablet 50 mg PO Q8H PRN 01/05/22 [History Confirmed 01/05/22] Active Medications Heparin Sodium/Dextrose (Heparin Iv Adult Wt-Based Low-Dose *No* Bolus Protocol) 1 ea IV Q15M [facility]; Protocol Stop: 01/05/22 22:35 Lactated Ringer's (Lr) 1,000 mls @ 110 mls/hr IV .Q9H6M EULA Stop: 02/04/22 20:29 Heparin Sodium/Dextrose (Heparin Sodium/Dextrose) 25,000 units in 500 mls @ 0.02 mls/hr IV .Q24H [facility]; Protocol Stop: 02/04/22 20:59 Morphine Sulfate (Morphine Sulfate 2 Mg/Ml Carp) 1 mg IV Q2H PRN PRN Reason: Moderate Pain (Rating 3,4,5,6) Stop: 01/19/22 18:34 Morphine Sulfate (Morphine Sulfate 4 Mg/Ml 1 Ml Carp\Vial) 2 mg IV Q2H PRN PRN Reason: Severe Pain (Rating 7,8,9,10) Stop: 01/19/22 18:34 Last Admin: 01/05/22 18:52 Dose: 2 mg Documented by: Ondansetron HCl (Ondansetron Inj 2 Mg/Ml 2 Ml Vial) 4 mg IV Q4H PRN PRN Reason: nausea Stop: 02/04/22 18:34 Last Admin: 01/05/22 18:52 Dose: 4 mg Documented by: Morphine Sulfate (Morphine Sulfate 4 Mg/Ml 1 Ml Carp\Vial) 2 mg IV Q2H PRN PRN Reason: Severe Pain (Rating 7,8,9,10) Stop: 01/19/22 18:34 Last Admin: 01/05/22 18:52 Dose: 2 mg Documented by: [id number] Ondansetron HCl (Ondansetron Inj 2 Mg/Ml 2 Ml Vial) 4 mg IV Q4H PRN PRN Reason: nausea Stop: 02/04/22 18:34 Last Admin: 01/05/22 18:52 Dose: 4 mg Documented by: [id number] Discontinued Medications Sodium Chloride (Nss 1000ml) 1,000 mls @ 999 mls/hr IV .Q1H1M ONE Stop: 01/05/22 17:08 Last Infusion: 01/05/22 18:03 Dose: 0 mls/hr Documented by: [id number] Admin: 01/05/22 16:31 Dose: 999 mls/hr Documented by: [id number] Ioversol (Optiray 320 100ml) 94 ml IV ONCE ONE Stop: 01/05/22 16:00 Last Admin: 01/05/22 16:00 Dose: 94 ml Documented by: [id number] Morphine Sulfate (Morphine Sulfate 4 Mg/Ml 1 Ml Carp\Vial) 4 mg IV NOW STA Stop: 01/05/22 15:12 Last Admin: 01/05/22 15:20 Dose: 4 mg Documented by: [id number] Ondansetron HCl (Ondansetron Inj 2 Mg/Ml 2 Ml Vial) 4 mg IV NOW STA Stop: 01/05/22 15:14 Last Admin: 01/05/22 15:20 Dose: 4 mg Documented by: [id number] Code Status & VTE Plan Code Status CODE: FULL VTE: SCDS, Heparin infusion Supervising Physician Co-Signing Physician Notes I personally saw and examined the patient. I verified all otero points and agree with JAVIER Leonard with the following exceptions and/or additions: 66 year old female admission for small bowel obstruction with abdominal pain, nausea and vomiting. Continued abdominal pain (only improving with IV morphine) and vomiting despite NG tube insertion. Incidentally noted to have guide wire present - suspected from mediport insertion at [place] in September as this is the only intervention she has had done since her PET scan in August where is was not present. O/E Tender ventral hernia on palpation, NG tube with 100-200ml output bile. A/P SBO - NPO, NG tube, IV fluids, appreciate surgery consult, suspect she will eventually need to be transferred to [place] as no significant improvement with interventions so far but appears to be stable enough to stay here overnight Incidental guide wire found from right iliac to SVC - suspected to be left in from Mediport insertion at [place] in September, consult vascular surgery, heparin IV drip without bolus for DVT PG Care Time/CCT Total # of Minutes Spent Total Time Spent with Patient: Total time spent is greater than 50% in coordination of care (as documented) at patient's floor/unit and/or counseling patient: Prolonged Care Time 45 minutes extended time - time spent reviewing images independently of other interpretations - coordinating care between hospitals Coding Level of Care Code 90357 Initial Inpt Care Lvl 3 Diagnoses Primary cancer of ovary with widespread metastatic disease C56.9; C80.0 Deep vein thrombosis (DVT) of iliac vein of right lower extremity I82.421 Small bowel obstruction K56.609 DDD (degenerative disc disease), lumbosacral M51.37
[2022-01-05] MEDS ORDERED: MoRPHine SULFATE 2 MG/ML CARP IV STA (20:14)
[2022-01-05] MEDS ORDERED: Heparin IV Adult Wt-Based Low-Dose *NO* Bolus Protocol IV SCH (20:49)
--- NOTE | 2022-01-05 21:05 | XRay Report ---
KUB CLINICAL HISTORY: NG tube placement COMPARISON STUDY: KUB performed earlier today. FINDINGS: Tip of nasogastric tube is within the body of the stomach. A suspected venous wire within t he chest and abdomen is again noted. IMPRESSION: Tip of nasogastric tube within the body of the stomach. ACT 112: Negative or not required by law. Electronically signed by: Brenden Arboleda M.D. 01/05/2022 9:03 PM
[2022-01-05 21:11] LABS: Partial Thromboplastin Ratio 1.1; Partial Thromboplastin Time 29.3 Seconds (21.0-31.0); Prothrombin Time 9.8 Seconds (9.0-12.0)
[2022-01-05] MEDS: HEPARIN SODIUM/DEXTROSE 25,000 UNITS/500 ML BAG IV SCH (21:37)
[2022-01-05] MEDS: LACTATED RINGER'S 1,000 ML IV SCH (21:42)
[2022-01-06] MEDS ORDERED: MoRPHine SULFATE 2 MG/ML CARP IV PRN (00:16)
[2022-01-06] MEDS: MoRPHine SULFATE 2 MG/ML CARP IV PRN ×3 (00:37→20:09)
[2022-01-06] MEDS: ONDANSETRON INJ 2 MG/ML 2 ML VIAL IV PRN ×2 (00:37→09:51)
[2022-01-06 01:08] LABS: Appearance Urine Clear (Clear); Bacteria Urine Automated Negative (Negative); Bilirubin Urine Negative (Negative); Blood Urine Negative (Negative); Color Urine Yellow; Epithelial Cell Urine Auto >30 /lpf (0-5); Glucose Urine UA Negative (Negative); Ketones Urine Negative (Negative); Leukocyte Esterase Urine Trace (Negative); Nitrite Urine Negative (Negative); Protein Urine Negative (Negative); RBC Urine Automated 0-4 /hpf (0-4); Specific Gravity Urine 1.043 (1.000-1.030); Urobilinogen Urine Negative (Negative)
[2022-01-06 04:09] LABS: Basophils # (auto) 0.01 K/uL (0-0.2); Basophils % (auto) 0.3 %; Eosinophils # (auto) 0.09 K/uL (0-0.5); Eosinophils % (auto) 3.1 %; Hemoglobin 9.9 g/dL (12.0-16.0); Immature Granulocytes # (auto) 0.01 K/uL (0.00-0.02); Immature Granulocytes % (auto) 0.3 %; Lymphocytes # (auto) 1.03 K/uL (1.2-3.4); Lymphocytes % (auto) 35.6 %; Mean Corpuscular Hemoglobin 33.4 pg (25-34); Mean Corpuscular Volume 101.4 fL (80-100); Mean Platelet Volume 9.2 fL (7.4-10.4); Monocytes # (auto) 0.49 K/uL (0.11-0.59); Neutrophils # (auto) 1.26 K/uL (1.4-6.5); Neutrophils % (auto) 43.7 %; Platelet Count 176 K/uL (130-400); RDW Coefficient of Variation 15.6 % (11.5-14.5); RDW Standard Deviation 56.7 fL (36.4-46.3); Red Blood Count 2.96 M/uL (4.2-5.4); White Blood Count 2.89 K/uL (4.8-10.8)
[2022-01-06 04:19] LABS: Partial Thromboplastin Ratio 1.7; Partial Thromboplastin Time 44.1 Seconds (21.0-31.0)
[2022-01-06 04:34] LABS: BUN Creatinine Ratio 17.3 (10-20); Calcium 8.4 mg/dl (8.5-10.1); Creatinine Clr Calc Pharmacy 105.4 ml/min; Est GFR (African American) 116.2 ml/min; Est GFR (Non-African American) 100.3 ml/min; Magnesium 1.6 mg/dl (1.7-2.4)
[2022-01-06] MEDS: LACTATED RINGER'S 1,000 ML IV SCH ×3 (05:18→21:04)
--- NOTE | 2022-01-06 09:22 | XRay Report ---
KUB CLINICAL HISTORY: Follow-up small bowel obstruction. FINDINGS: 3 AP supine abdominal radiographs are compared to abdominal radiographs and CT dated 022. An enteric tube is unchanged in position. There are persistently dilated loops of small bowel in the mid to lower abdomen measuring up to 3.3 cm. This indicates persistent obstruction. No evidence of intraperitoneal free air is seen on these supine images. There are no abnormal abdominal calcifica tions. The bladder is filled with excreted IV contrast. A wire is again seen projecting from the righ t neck to the right iliac region. A central venous infusion port is in place. The lungs are clear as imaged. The skeletal structures are osteopenic and appear intact. Postoperative change is partially v isualized in the right proximal femur. IMPRESSION: 1. Persistent small bowel obstruction. 2. A wire is again seen projecting from the right neck to the right iliac region. 3. Additional findings as above. Electronically signed by: Sarath Roy M.D. 01/06/2022 9:20 AM
--- NOTE | 2022-01-06 09:50 | Surgery Progress Note ---
Date of Service January 06, 2022 Assessment & Plan (1) Small bowel obstruction: Plan: Pt here with SBO, she is s/p recent small bowel resection 2/2 to metastatic ovarian cancer With NGT in place pt feeling some improvement in symptoms. Still awaiting return of bowel function. Tender in mid/lower abd. KUB this AM shows persistent SBO Recommend continuing course of conservative management. No plans for surgical intervention while here, should she require it she should be transferred to a tertiary care center given her extensive history [facility] surgery covering over the wknd Admission and Anticipated Discharge Date Admission Date: January 05, 2022 Supervising Physician Co-Signing Physician Notes Patient seen and examined, labs and image reviewed, agree with above. 66-year-old female on chemotherapy for metastatic ovarian cancer diagnosed during small bowel resection for obstruction secondary to mass, admitted yesterday for small bowel obstruction. This appears to be in the site of her prior surgery and is likely related to metastatic disease versus adhesions. She also has a right iliac DVT that is associated with a potential retained guidewire from prior port placement. This morning she is feeling better, she still has some abdominal tenderness but much better than yesterday. She has not passed flatus yet. NG tube with minimal output. On heparin drip. Labs unremarkable. KUB with persistent obstruction. Continue nonoperative management. The patient would require surgery would recommend be performed at the tertiary center given history of metastatic ovarian cancer and chemotherapy. Vascular surgery has been consulted for the retained guidewire. Surgery will follow while in-house, Dr. Maguire covering over weekend. Subjective Patient feeling better than yesterday. Abdominal pain improved some. No n/v. No flatus/BM yet. Physical Exam Physical Exam: awake/alert, no acute distresss Gastrointestinal (Abdomen): Percussion/Palpation: + abdomen tender (in mid/lower abdomen) and abdomen soft Results & Data ([facility]) Vital Signs (Past 12 Hours) Vital Signs Temp Pulse Pulse Resp BP Pulse Ox Pulse Ox 01/06/22 07:12 36.7 C 76 18 127/75 97 01/06/22 05:31 36.7 C 83 74 18 115/74 01/06/22 04:51 63 16 95/61 L 94 01/06/22 03:55 68 18 125/71 94 01/06/22 00:00 65 16 134/81 96 01/05/22 23:59 97 02/24/22 23:00 72 16 109/58 L 97 01/05/22 22:00 74 22 122/62 98 PG Care Time/CCT Total # of Minutes Spent Total Time Spent with Patient: Total time spent is greater than 50% in coordination of care (as documented) at patient's floor/unit and/or counseling patient: Coding Level of Care Code 93638 Subseq Hosp Care Lvl 1 Diagnoses Small bowel obstruction K56.609
[2022-01-06 09:51] LABS: iSTAT Creatinine 0.5 mg/dl (0.6-1.3); iSTAT Hemoglobin 10.9 g/dl (12.0-16.0); iSTAT Ionized Calcium 1.28 mmol/l (1.12-1.32); iSTAT Potassium 4.1 mmol/L (3.3-5.0)
--- NOTE | 2022-01-06 10:09 | Consultation ---
Date of Consultation January 06, 2022 Assessment & Plan (1) Foreign body accidentally left during a procedure: Pt with apparent procedure wire left intravenously after infusaport insertion. Imaging reviewed by Dr Cotter. Recommends pt undergo removal of foreign body in OR later today. Procedure, risks, benefits, and alternatives discussed with pt by myself at Dr Cotter's request. Pt expresses understanding and agreement. Will place an IVC filter prior to removal of the wire due to clot in the iliac vein at the end of the wire. Patient was seen, examined, and chart reviewed. Agree with exam and treatment plan of the Vascular PA. I have discussed the risks options and benefits of the procedure with the patient. The patient understands the risks options and benefits and agrees to the procedure. History of Present Illness Reason for Consultation: venous foreign body Attending Physician: Saul Kwok MD History of Present Illness 66 yo f with hx of ovarian CA, DDD, hypothyroidism, hypercholesterolemia, admitted with SBO and found to have a R IJ foreign body extending from IJ to R iliac vein, seen in consultation today. Pt states she had Infusaport inserted at outside facility a few months ago. Denies any associated pain. Did have some nausea and abd pain, but is feeling improved since admission. Denies MARTINEZ, fever, chest pain, SOB, N/V, rest pain, claudication, other complaints. Pt currently with NG tube inserted. Pt has been placed on heparin drip for R iliac v thrombus. CT abd/pelvis demonstrates venous foreign body with R iliac thrombus noted. Allergies Allergy/AdvReac Type Severity Reaction Status Date / Time codeine AdvReac Unknown Unknown Verified 01/05/22 15:51 ibuprofen AdvReac Unknown Unknown Verified 01/05/22 15:51 Home Medications Medication Instructions Recorded Confirmed Type Walking Cane #1 ea 06/22/20 08/05/20 Rx aspirin 81 mg tablet,delayed 81 mg PO DAILY 01/05/22 01/05/22 History release cholecalciferol (vitamin D3) 50 50 mcg PO DAILY 01/05/22 01/05/22 History mcg (2,000 unit) capsule (Vitamin D3) levothyroxine 100 mcg tablet 100 mcg PO DAILY 01/05/22 01/05/22 History rosuvastatin 10 mg tablet 10 mg PO HS 01/05/22 01/05/22 History sennosides 8.6 mg-docusate sodium See Rx Instructions .ROUTE .COMPLEX 01/05/22 01/05/22 History 50 mg tablet (Senokot-S) tramadol 50 mg tablet 50 mg PO Q8H PRN 01/05/22 01/05/22 History Patient History Medical History (Updated 01/06/22 @ 10:14 by Nicki Brownlee PA-C) Deep vein thrombosis (DVT) of iliac vein of right lower extremity Foreign body accidentally left during a procedure Fracture of pubic ramus Primary cancer of ovary with widespread metastatic disease Small bowel obstruction Surgical History History of abdominal surgery History of bowel resection History of total right hip arthroplasty Social History Smoking Status: Current every day smoker Tobacco Type: E-cigarettes / Vaping Second Hand Exposure: Yes; Do You Dip or Chew Tobacco: No; Hx Alcohol Use: Yes Hx Substance Use: No Preferred Language: Lithuanian Communication Ability: Effective Swaging Machine Adjuster Required: No Beliefs That Will Affect Care: None Current Living Situation: Spouse Other Information That Helps Us Care for You: No Feels Safe at Home: Yes Safety Concerns: Feels Safe At This Time Assistive Devices: Cane Assistive Devices Comment: uses cane as needed Review of Systems Review of Systems: All systems reviewed & are unremarkable except as noted in HPI & below Physical Exam Constitutional: WD/WN, vitals as above + thin, + frail appearing, cooperative and comfortable; not in distress ENMT: Ears: no hearing impairment Respiratory: normal respiratory effort, lungs clear to auscultation Cardiovascular: Rate/Rhythm: regular rate and regular rhythm Vessels: femoral pulses present, posterior tibial pulses present, dorsalis pedis pulses present and radial pulses present; + abnormal peripheral pulses Extremities: normal capillary refill; no edema Gastrointestinal (Abdomen): Inspection/Auscultation: abdomen not distended Percussion/Palpation: + abdomen tender and abdomen soft Musculoskeletal: no cyanosis or clubbing, extremities motor strength 5/5 Skin: no rashes, warm and dry Neurologic: moves all extremities and awake; no focal motor deficits and not confused Psychiatric: A+Ox3, euthymic affect Results & Data ([facility]) Vital Signs (Past 12 Hours) Vital Signs Temp Pulse Pulse Resp BP Pulse Ox Pulse Ox 01/06/22 07:12 36.7 C 76 18 127/75 97 01/06/22 05:31 36.7 C 83 74 18 115/74 01/06/22 04:51 63 16 95/61 L 94 01/06/22 03:55 68 18 125/71 94 01/06/22 00:00 65 16 134/81 96 01/05/22 23:59 97 01/05/22 23:00 72 16 109/58 L 97
[2022-01-06] MEDS ORDERED: ceFAZolin 1000MG 1,000 MG/7.5 ML SYR IV ONE (10:16)
[2022-01-06 11:05] LABS: Partial Thromboplastin Ratio 2.2
[2022-01-06] MEDS ORDERED: PROPOFOL IV EMULSION 10 MG/ML 20 ML VIAL IV ONE ×2 (11:08→11:35)
[2022-01-06] MEDS ORDERED: LIDOCAINE 2% 2 ML VIAL/AMP(20MG/ML) INFIL ONE (11:08)
[2022-01-06] MEDS ORDERED: MIDAZOLAM HCL 1 MG/ML 2ML VIAL ONE (11:08)
[2022-01-06] MEDS ORDERED: fentaNYL citrate 100 MCG/2 ML VIAL ONE (11:08)
[2022-01-06 11:24] LABS: Partial Thromboplastin Time 56.6 Seconds (21.0-31.0)
[2022-01-06] MEDS ORDERED: GELATIN SPONGE SZ 100 ONE (11:36)
[2022-01-06] MEDS ORDERED: LIDOCAINE 1% LOCAL 20 ML VIAL ONE (11:36)
[2022-01-06] MEDS ORDERED: THROMBIN FOR SOLN 20000 UNIT KIT ONE (11:36)
[2022-01-06] MEDS ORDERED: HEPARIN (PORCINE) 1000 UNIT/ML 10 ML (CATH LAB USE ONLY) ONE (11:36)
[2022-01-06] MEDS ORDERED: EPINEPHrine INJ 1 MG/ML AMP ONE (11:37)
[2022-01-06] MEDS ORDERED: BUPIVACAINE 0.5 % 5 MG/1 ML MPF 30ML VIAL ONE (11:37)
--- NOTE | 2022-01-06 11:41 | Anesthesiology Consultation ---
Date of Service January 06, 2022 Assessment & Plan (1) Encounter for pre-operative examination: Chart Review Chart Review: Acceptable Risk for Surgery and Patient NOT seen in Pre Admission Testing Consults Requested none History Surgery Operation Date: 01/06/22 21:30 Proposed Procedures p Insertion of Vena Cava Filter, Removal of Foreign Body - Jamaal Cotter MD Height/Weight Height: 5 ft 5 in Weight: 69.3 kg Allergies Allergy/AdvReac Type Severity Reaction Status Date / Time codeine AdvReac Unknown Unknown Verified 01/05/22 15:51 ibuprofen AdvReac Unknown Unknown Verified 01/05/22 15:51 Medications Home Medications Medication Instructions Recorded Confirmed Last Taken Walking Cane #1 ea 06/22/20 08/05/20 Unknown aspirin 81 mg tablet,delayed 81 mg PO DAILY 01/05/22 01/05/22 01/04/22 release cholecalciferol (vitamin D3) 50 50 mcg PO DAILY 01/05/22 01/05/22 01/04/22 mcg (2,000 unit) capsule (Vitamin D3) levothyroxine 100 mcg tablet 100 mcg PO DAILY 01/05/22 01/05/22 01/05/22 rosuvastatin 10 mg tablet 10 mg PO HS 01/05/22 01/05/22 01/04/22 sennosides 8.6 mg-docusate sodium See Rx Instructions .ROUTE .COMPLEX 01/05/22 01/05/22 01/04/22 50 mg tablet (Senokot-S) tramadol 50 mg tablet 50 mg PO Q8H PRN 01/05/22 01/05/22 Unknown Active Medications Generic Name Dose Route Start Last Admin Trade Name Racheal PRN Reason Stop Dose Admin Lactated Ringer's 1,000 mls @ 110 mls/hr 01/05/22 20:30 01/06/22 05:18 Lr IV 02/04/22 20:29 110 mls/hr .Q9H6M EULA Administration Heparin Sodium/Dextrose 25,000 units in 500 mls @ 16 mls/hr 01/05/22 21:00 01/06/22 07:08 Heparin Sodium/Dextrose IV 02/04/22 20:59 800 units/hr .Q24H EULA 16 mls/hr Titration Protocol 800 UNITS/HR Morphine Sulfate 2 mg 01/06/22 00:16 01/06/22 05:21 Morphine Sulfate 2 Mg/Ml Carp IV 01/20/22 00:15 2 mg Q2H PRN Administration Pain 6-10 Ondansetron HCl 4 mg 01/05/22 18:35 01/06/22 09:51 Ondansetron Inj 2 Mg/Ml 2 Ml Vial IV 02/04/22 18:34 4 mg Q4H PRN Administration nausea Past Medical History Medical History Deep vein thrombosis (DVT) of iliac vein of right lower extremity Foreign body accidentally left during a procedure Fracture of pubic ramus Primary cancer of ovary with widespread metastatic disease Small bowel obstruction Past Surgical History Surgical History History of abdominal surgery History of bowel resection History of total right hip arthroplasty Social History Smoking Status: Current every day smoker tobacco type: e-cigarettes Do You Dip or Chew Tobacco: No Hx Alcohol Use: Yes alcohol intake frequency: holidays/special occasions only Hx Substance Use: No Physical Exam Vital Signs Last Vital Signs Temp 36.9 C 01/06/22 11:42 Pulse 66 01/06/22 11:42 Resp 20 01/06/22 11:42 BP 126/70 01/06/22 11:42 Pulse Ox 96 01/06/22 11:42 Testing Laboratory Results 01/06/22 03:52 01/06/22 03:52 PT 9.8 Seconds (9.0-12.0) 01/05/22 15:07 INR 1.0 (0.9-1.1) 01/05/22 15:07 APTT 56.6 Seconds (21.0-31.0) H* 01/06/22 10:15 Urine Color Yellow 01/06/22 00:50 Urine Appearance Clear (Clear) 01/06/22 00:50 Urine pH 5.0 (4.5-7.5) 01/06/22 00:50 Ur Specific Roland 1.043 (1.000-1.030) H 01/06/22 00:50 Urine Protein Negative (Negative) 01/06/22 00:50 Urine Glucose (UA) Negative (Negative) 01/06/22 00:50 Urine Ketones Negative (Negative) 01/06/22 00:50 Urine Nitrite Negative (Negative) 01/06/22 00:50 Ur Leukocyte Esterase Trace (Negative) H 01/06/22 00:50 Urine WBC (Auto) 5-10 /hpf (0-5) H 01/06/22 00:50 Urine RBC (Auto) 0-4 /hpf (0-4) 01/06/22 00:50 U Hyaline Cast (Auto) 1-5 /lpf (0-5) 01/06/22 00:50 U Epithel Cells (Auto) >30 /lpf (0-5) H 01/06/22 00:50 Urine Bacteria (Auto) Negative (Negative) 01/06/22 00:50 01/05/22 15:18 POC Glucose (other) 85
[2022-01-06] MEDS ORDERED: ATROPINE SULFATE 0.1 MG/ML 10ML SYR IV PRN (12:03)
[2022-01-06] MEDS ORDERED: fentaNYL citrate 100 MCG/2 ML VIAL IV PRN (12:03)
[2022-01-06] MEDS ORDERED: ePHEDrine sulfate 50 MG/ML AMP IV PRN (12:03)
[2022-01-06] MEDS ORDERED: ONDANSETRON INJ 2 MG/ML 2 ML VIAL IV PRN (12:03)
[2022-01-06] MEDS ORDERED: DexMEDEtomidine HCL IV 100 MCG/ML VIAL IV ONE (12:53)
[2022-01-06] MEDS ORDERED: VISIPAQUE IV ONE (13:12)
[2022-01-06] MEDS ORDERED: ONDANSETRON INJ 2 MG/ML 2 ML VIAL ONE (13:15)
--- NOTE | 2022-01-06 13:24 | Operative Report ---
Post Operative Report Pre & Post Diagnosis Operation Date: 01/06/22 21:30 Pre-Op Diagnosis: Foreign body Post-Op Diagnosis: Foreign body I identified the patient and participated in the time-out.: Yes Procedure Operation Date: 01/06/22 21:30 Actual Procedures p Insertion of Vena Cava Filter Femoral approach, Removal of Foreign Body Jugular approach(Not Applicable) - Jamaal Cotter MD Surgeon Jamaal Cotter MD Contract Loader Ron,PAC Estimated Blood Loss 10 Findings Consistent with Post-Op Diagnosis Specimens wire Anesthesia Type MAC Complications none Disposition Accompanied Patient To Recovery: No Disposition: Recovery Room Indications This is a 66-year-old female who had a port placed last fall. She was admitted here with small bowel obstruction. On x-ray she was found to have a wire stretc tae from the right internal jugular down to the right external iliac vein. There is also clot at the end of the catheter in the iliac vein. In July CAT scan was done which showed no presence of a wire in the vena cava. She has had no procedures according to her since the port. At this point recommended removal of the wire. We also recommend insertion of a filter to protect against the clot on the end of the J-wire from dislodging and floating up to the pulmonary artery. I have discussed the risks options and benefits of the procedure with the patient. The patient understands the risks options and benefits and agrees to the procedure. Description of Procedure The patient was brought to the angio suite and placed in the supine position. The patient was identified and a timeout performed. The left groin and right- sided neck was prepped and draped in the usual fashion. The left common femoral vein was located with ultrasound. It was patent, compressed easily, and had no filling defects. Local anesthesia was then administered to the left groin. The vein was then punctured under ultrasound visualization. A guidewire was then passed centrally into the inferior vena cava under fluoroscopic guidance. The puncture site was then dilated and the filter sheath inserted. It was passed to the infra renal vena cava. A venacavagram was done which showed no cava clot and an acceptable size. The renal veins were identified. The filter was then passed through the sheath and deployed in the infra renal vena cava in an upri ght position. The vena cava itself was not straight therefore the filter set at an angle in the cava itself. Adequate hemostasis was obtained and a sterile dressing was applied at the end of the procedure. Next local in anesthesia administered to the right-sided neck just above the clavicle. A transverse incision was made just above the clavicle carried down to where the internal jugular vein was identified. It was slung proximal distally with Vesseloops. A small venotomy was performed. The wire was identified and grabbed with a hemostat. Under fluoroscopy the wire was removed. It was followed up through the abdomen and to make sure he did not catch on the filter. The entire wire was removed without difficulty. The venotomy was then closed with 5-0 Prolene suture. Active hemostasis was seen. The wound was then closed with a running 3-0 Vicryl suture for the subcutaneous layer and a running 4-0 subcuticular suture for the skin edges. Dermabond was used for dressing. The patient left the operation room in satisfactory condition and tolerated the procedure well. All needle and sponge counts were correct at the end of the procedure. Nicki Brownlee Pac assisted due to lack of resident availability and was necessary for positioning, draping, retraction, wound closure deep layers, subcutaneous tissue, and skin closure and was necessary for assisting with the case. I attest to the content of the Intraoperative Record and any orders documented therein. Any exceptions are noted below.
--- NOTE | 2022-01-06 15:03 | Anesthesiology Progress Note ---
Date of Service January 06, 2022 Anesthesia Post Procedure Vital Signs Vital Signs: Temp Pulse Pulse Pulse Resp BP Pulse Ox 01/06/22 14:47 71 18 121/73 92 01/06/22 14:21 36.5 C 73 18 108/66 94 01/06/22 14:05 66 16 98/60 L 94 01/06/22 13:55 36.4 C L 67 16 91/60 L 94 01/06/22 13:45 68 12 84/53 L 97 01/06/22 13:35 68 12 101/58 L 100 01/06/22 13:26 36.2 C L 70 20 98/59 L 100 01/06/22 11:42 36.9 C 66 20 126/70 96 01/06/22 11:28 36.6 C 96 H 18 132/73 96 01/06/22 07:12 36.7 C 76 18 127/75 97 01/06/22 05:31 36.7 C 83 74 18 115/74 01/06/22 04:51 63 16 95/61 L 94 01/06/22 03:55 68 18 125/71 94 01/06/22 00:00 65 16 134/81 96 01/05/22 23:59 01/05/22 23:00 72 16 109/58 L 97 01/05/22 22:00 74 22 122/62 98 01/05/22 20:00 67 12 114/58 L 97 01/05/22 18:00 69 15 161/82 H 96 01/05/22 16:35 70 17 131/81 96 Pulse Ox 01/06/22 14:47 01/06/22 14:21 01/06/22 14:05 01/06/22 13:55 01/06/22 13:45 01/06/22 13:35 01/06/22 13:26 01/06/22 11:42 01/06/22 11:28 01/06/22 07:12 01/06/22 05:31 01/06/22 04:51 01/06/22 03:55 01/06/22 00:00 01/05/22 23:59 97 01/05/22 23:00 01/05/22 22:00 01/05/22 20:00 01/05/22 18:00 01/05/22 16:35 Pain Intensity Abdomen: Pain Intensity: 10 Right Neck: Pain Intensity: 4 Transfer of Care Handoff Completed per policy Notes Mental Status: alert / awake / arousable and participated in evaluation Nausea / Vomiting: adequately controlled Pain: adequately controlled Airway Patency, RR, SpO2: stable & adequate BP & HR: stable & adequate Hydration State: stable & adequate Anesthetic Complications: no major complications apparent and Pt Satisfied with anesthetic care
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
[2022-01-06] MEDS ORDERED: HEPARIN 100 UNIT/ML 5ML FLUSH FLUSH PRN (22:20)
[2022-01-07] MEDS: MoRPHine SULFATE 2 MG/ML CARP IV PRN ×4 (00:49→08:48)
[2022-01-07] MEDS: HEPARIN SODIUM/DEXTROSE 25,000 UNITS/500 ML BAG IV SCH (03:12)
--- NOTE | 2022-01-07 04:02 | Communication Note ---
Date of Service: January 07, 2022 Received a message that patient had swelling on the right side of her neck that had increased significantly since earlier in the day. The swelling is on the side where she had foreign body removal via jugular approach on 01/06. Upon my evaluation, patient was hemodynamically stable and conversing appropriately. Having no issues breathing. She did feel significant tenderness. RN had administered dose of as needed morphine a few minutes prior to my arrival. As I was in the room, patient did note that the tenderness was subsiding. She continued to be stable at the time. However, she was quite tender to palpation. No ecchymosis was noted. Surgical scar was clean dry and intact. Considered ultrasound of the neck versus CT. However, patient would not be able to tolerate ultrasound due to tenderness and she was otherwise stable. Elected to treat her pain and monitor for any signs of instability. Resident Activity Tracking Resident Involvement: Cutter Hand Coverage Note Care Provided: Adult Hospital Medicine
[2022-01-07] MEDS: LACTATED RINGER'S 1,000 ML IV SCH (06:05)
[2022-01-07 06:44] LABS: Basophils # (auto) 0.01 K/uL (0-0.2); Basophils % (auto) 0.2 %; Hematocrit (blood only) 26.9 % (37-47); Immature Granulocytes # (auto) 0.01 K/uL (0.00-0.02); Immature Granulocytes % (auto) 0.2 %; Lymphocytes # (auto) 0.91 K/uL (1.2-3.4); Lymphocytes % (auto) 19.2 %; Mean Corpuscular Hemoglobin 33.5 pg (25-34); Mean Corpuscular Hgb Conc 33.5 g/dL (32-36); Mean Platelet Volume 9.3 fL (7.4-10.4); Monocytes # (auto) 0.77 K/uL (0.11-0.59); Monocytes % (auto) 16.2 %; Neutrophils # (auto) 3.05 K/uL (1.4-6.5); Neutrophils % (auto) 64.2 %; Platelet Count 182 K/uL (130-400); RDW Coefficient of Variation 15.3 % (11.5-14.5); RDW Standard Deviation 56.4 fL (36.4-46.3); Red Blood Count 2.69 M/uL (4.2-5.4); White Blood Count 4.75 K/uL (4.8-10.8)
[2022-01-07 07:03] LABS: BUN Creatinine Ratio 25.5 (10-20); Creatinine Clr Calc Pharmacy 108.2 ml/min; Est GFR (Non-African American) 100.9 ml/min; Magnesium 1.5 mg/dl (1.7-2.4); Potassium 3.6 mmol/L (3.5-5.1)
[2022-01-07 07:15] LABS: Partial Thromboplastin Ratio 2.7
--- NOTE | 2022-01-07 07:56 | XRay Report ---
KUB CLINICAL HISTORY: Small bowel obstruction. COMPARISON STUDY: CT of the abdomen and pelvis January 05, 2022. KUB January 06, 2022. FINDINGS: The previously described intradural venous wire has been removed. IVC filter has been place d. Right femoral internal fixation is incidentally noted. Tip of nasogastric tube is within the gastr ic cardia. Small bowel dilatation has resolved. IMPRESSION: 1. Resolution of small bowel dilatation. 2. Interval placement of an IVC filter. ACT 112: Negative or not required by law. Electronically signed by: Brenden Arboleda M.D. 01/07/2022 7:55 AM
--- NOTE | 2022-01-07 09:27 | Surgery Progress Note ---
Date of Service January 07, 2022 Assessment & Plan (1) Hematoma of neck: Plan: Exploration of neck is recommended. I have discussed the risks options and benefits of the procedure with the patient. The patient understands the risks options and benefits and agrees to the procedure. Admission and Anticipated Discharge Date Admission Date: January 05, 2022 Subjective Patient with swelling of right side of neck Physical Exam Physical Exam: Markedly swelling of right side of neck extending to the left side. Constitutional: WD/WN, vitals as above Respiratory: normal respiratory effort, lungs clear to auscultation Cardiovascular: RRR, no murmur, no edema Results & Data ([facility]) Vital Signs (Past 12 Hours) Vital Signs Temp Pulse Pulse Resp BP Pulse Ox Pulse Ox 01/07/22 07:27 36.6 C 84 18 156/75 H 98 01/07/22 03:36 36.5 C 76 18 155/80 H 94 01/06/22 23:32 95 01/06/22 23:20 79
--- NOTE | 2022-01-07 09:28 | Hospitalist Progress Note ---
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 She was found to have a high-grade small bowel obstruction with concern for adhesions. Hospital course was complicated by a wire appreciated on CT scan which transversed SVC, IVC, and terminated in the right iliac vein is not present on imaging September 01. Only medical procedures since that time was a Mediport placement. She underwent uncomplicated removal of wire 12/17. Small bowel obstruction CTA/P: Findings are consistent with a high-grade small bowel obstruction. There is a cluster of thick-walled, twisted appearing, and tethered bowel loops in the ventral lower abdomen and this is likely on the basis of adhesions. Thre are focally thick walled bowel loops at the site of obstruction with mesenteric edema and interloop fluid. No pneumatosis intestinalis or portal venous gas is seen. These loops may be risk for ischemia and surgical assessment is advised. An indeterminant catheter or wire extends from the lower chest, traverses the heart and IVC, and terminates in the right iliac vein. There is associated right iliac vein deep venous thrombosis. No intraperitoneal free air is identified. NGT in place, on low intermittent suction Surgery consulted. Recommended n.p.o., IV fluids, KUB follow-up tomorrow morning. Noted that she is currently on chemotherapy and surgical intervention of bowel obstructions from metastatic ovarian cancer can be technically challenging requiring large resections of matted bowel, given her complicated history and cancer if she were to require surgical intervention recommended that this be performed at tertiary care center/[facility]. Of note her original oncologist has moved from [facility]. See additional notatin below Morphine as needed for breakthrough pain Zofran as needed for nausea [facility] contacted 01/06, continue medical management of SBO at this time. If not improving patient may be appropriate to transfer to surgical service at that time, Additional evaluation from oncology perspective limited by locum coverage at this time and would be admitted to general surgical service. Patient with ETT in place as below,? Trophic feeds if ETT remains in place SBO began to improve with flatus. (2) Neck swelling: Plan: - Patient status post insertion of vena cava filter femoral approach removal of foreign body jugular approach 01/06, wire noted above on CT was removed Overnight into 01/07 with increased neck swelling underlying right IJ access site, wound without dehiscence Trachea midline, no wheezing/stridor, but with throat clearing and small airway Heparin stopped Vascular surgery contacted, patient underwent hematoma evacuation and intubation for airway protection Hemoglobin 9.0 from 9.9 Daughter updated by phone and again at bedside Remains intubated for airway protection (3) Primary cancer of ovary with widespread metastatic disease: Plan: Primary ovarian cancer, with metastasis CT as above The right ovary measures 2.8 x 0.8 x 1.2 cm and the left ovary measures 2.2 x 0.9 x 0.9 cm- from pelvic ultrasound in 10/02 Patient was working on surgical intervention for potential ovarian resection with oncology as outpatient. Given extensive adhesions and SBO, if she were to have abdominal surgery may benefit from a consolidated surgical approach. This was discussed with [facility] industrial relations worker/onc for reviewing the case. 01/06: Discussed with on-call gynecology [facility]. Note available indicating that her prior bowel resection showed adenoma of unknown primary, subsequent follow- up suspicious for ovarian primary and patient was pending additional outpatient work-up. Had recommended outpatient follow-up if SBO resolves, if SBO does not improve with medical treatment recontact and keep updated and may be appropriate for transfer at that time. Call w/ update Tuesday 01/09,continue medical management. (4) Deep vein thrombosis (DVT) of iliac vein of right lower extremity: Plan: - Noted to be on same side as incidentally found indeterminant wire -Heparin drip discontinued, vena cava in place Patient s/p removal of foreign body via jugular approach with insertion of vena cava filter femoral approach 01/06/2022, uncomplicated under fluoroscopic guidance. (5) DDD (degenerative disc disease), lumbosacral: Plan: Chronic pain with compression deformities of L2-L3-L4 Patient with morphine for breakthrough pain control with SBO as above Plan: DVT prophylaxis: SCDs Diet: N.p.o., NGT LIS. LR 110 cc/h Disposition: ICU CODE STATUS: Full code Admission and Anticipated Discharge Date Admission Date: January 05, 2022 Subjective Patient seen at bedside this morning after notification from nurse and overnight resident that patient had swelling at prior surgical site. On assessment patient with prominent swelling at right IJ access site, very tender to palpation and hard. No tracheal deviation or stridor, patient with developing throat clearing/cough. Patient without lightheadedness, dizziness, or other bleeding. Vascular surgery paged and notified of clinical change, heparin ronda trudy. Patient taken urgently to the OR for hematoma evacuation. On afternoon reassessment patient transferred to the ICU, remains intubated for airway protection. Case discussed with patient's daughter and . Review of Systems Review of Systems: As above, full ROS limited initially by emergency eval uation and subsequently by ETT Physical Exam Physical Exam: General: A&Ox3. NAD. Cooperative. HEENT: Right neck with IJ incision intact, but severe underlying swelling. Firm and painful to the touch. No tracheal deviation, no stridor, intermittent cough. Visual acuity/hearing grossly intact. Pulm: No stridor, no wheeze. Symmetrical chest rise. No increased work of breathing. No respiratory distress. Cardiac: RRR, -mrg. Radial pulses intact and symmetrical. Abdominal: Ventral hernia, reducible mildly tender to palpation. No abd rigidity. No rebound tenderness. BS absent. Ext: R medial ankle with bony abnormality 2/2 bone graft. Sensation intact to soft touch in hands and feet bilaterally without asymmetry. cap refil brisk in hallux bilaterally. PT pulse intact to palp bilaterally, radial pulse intact to palp bilaterally. On afternoon reassessment ETT in place, patient opens eyes and able to follow simple commands, squeezes fingers on command. Results & Data Results & Data ([facility]) Vital Signs (Past 12 Hours) Vital Signs Temp Pulse Pulse Resp BP Pulse Ox Pulse Ox 01/07/22 07:27 36.6 C 84 18 156/75 H 98 01/07/22 03:36 36.5 C 76 18 155/80 H 94 01/06/22 23:32 95 01/06/22 23:20 79 PG Care Time/CCT Total # of Minutes Spent Total Time Spent with Patient: Total time spent is greater than 50% in coordination of care (as documented) at patient's floor/unit and/or counseling patient: Coding Level of Care Code 76394 Subseq Hosp Care Lvl 3 Diagnoses Small bowel obstruction K56.609 Primary cancer of ovary with widespread metastatic disease C56.9; C80.0 Deep vein thrombosis (DVT) of iliac vein of right lower extremity I82.421 DDD (degenerative disc disease), lumbosacral M51.37 Neck swelling R22.1
[2022-01-07] MEDS ORDERED: PROPOFOL IV EMULSION 10 MG/ML 20 ML VIAL IV ONE (09:42)
[2022-01-07] MEDS ORDERED: ROCURONIUM BROMIDE 10 MG/ML 5 ML VIAL IV ONE ×2 (09:42→11:39)
[2022-01-07] MEDS ORDERED: SUCCINYLCHOLINE CHLORIDE 20 MG/ML 10 ML VIAL IV ONE (09:42)
[2022-01-07] MEDS ORDERED: LIDOCAINE 2% 2 ML VIAL/AMP(20MG/ML) INFIL ONE (09:42)
[2022-01-07] MEDS ORDERED: fentaNYL citrate 100 MCG/2 ML VIAL ONE (09:43)
[2022-01-07] MEDS ORDERED: SODIUM CHLORIDE 0.9% 250 ML IV PRN (09:50)
[2022-01-07] MEDS ORDERED: LIDOCAINE 4% INH SOLN 4 ML BTL ONE (10:26)
[2022-01-07] MEDS ORDERED: KETAMINE 50 MG/5 ML SYRINGE ONE (10:29)
--- NOTE | 2022-01-07 10:30 | Anesthesiology Consultation ---
Date of Service January 07, 2022 Assessment & Plan Chart Review Chart Review: Acceptable Risk for Surgery and Patient NOT seen in Pre Admission Testing Consults Requested none ASA [id number] Proposed Anesthesia Anesthesia Type: General Risk / Benefits Reviewed With: PT / POA / Parent / Guardian, Accepts Plan and Informed Consent Obtained Additional Notes Plan for sedated/spontaneously ventilating fiberoptic/glidescope intubation History Surgery Operation Date: 01/06/22 21:30 Proposed Procedures p Insertion of Vena Cava Filter, Removal of Foreign Body - Jamaal Cotter MD Operation Date: 01/07/22 09:45 Proposed Procedures p Carotid Endarterectomy - Jamaal Cotter MD Height/Weight Height: 5 ft 5 in Weight: 70.3 kg Allergies Allergy/AdvReac Type Severity Reaction Status Date / Time codeine AdvReac Unknown Unknown Verified 01/05/22 15:51 ibuprofen AdvReac Unknown Unknown Verified 01/05/22 15:51 Medications Home Medications Medication Instructions Recorded Confirmed Last Taken Walking Cane #1 ea 06/22/20 08/05/20 Unknown aspirin 81 mg tablet,delayed 81 mg PO DAILY 01/05/22 01/05/22 01/04/22 release cholecalciferol (vitamin D3) 50 50 mcg PO DAILY 01/05/22 01/05/22 01/04/22 mcg (2,000 unit) capsule (Vitamin D3) levothyroxine 100 mcg tablet 100 mcg PO DAILY 01/05/22 01/05/22 01/05/22 rosuvastatin 10 mg tablet 10 mg PO HS 01/05/22 01/05/22 01/04/22 sennosides 8.6 mg-docusate sodium See Rx Instructions .ROUTE .COMPLEX 01/05/22 01/05/22 01/04/22 50 mg tablet (Senokot-S) tramadol 50 mg tablet 50 mg PO Q8H PRN 01/05/22 01/05/22 Unknown Active Medications Generic Name Dose Route Start Last Admin Trade Name Freq PRN Reason Stop Dose Admin Lactated Ringer's 1,000 mls @ 110 mls/hr 01/05/22 20:30 01/07/22 06:05 Lr IV 02/04/22 20:29 110 mls/hr .Q9H6M EULA Administration Heparin Sodium/Dextrose 25,000 units in 500 mls @ 0 mls/hr 01/05/22 21:00 01/07/22 08:01 Heparin Sodium/Dextrose IV 02/04/22 20:59 0 units/hr .Q0M EULA 0 mls/hr Titration Protocol 0 UNITS/HR Morphine Sulfate 2 mg 01/06/22 00:16 01/07/22 08:48 Morphine Sulfate 2 Mg/Ml Carp IV 01/20/22 00:15 2 mg Q2H PRN Administration Pain 6-10 Ondansetron HCl 4 mg 01/05/22 18:35 01/06/22 09:51 Ondansetron Inj 2 Mg/Ml 2 Ml Vial IV 02/04/22 18:34 4 mg Q4H PRN Administration nausea NPO Date Last Intake of Fluids: 01/07/22 Time Last Intake of Fluids: 22:00 Last Intake of Fluids Comment: ice chips Date Last Intake of Solids: 01/05/22 Time Last Intake of Solids: 17:00 Last Intake of Solids Comment: no intake prior to admission Past Medical History Medical History Deep vein thrombosis (DVT) of iliac vein of right lower extremity Foreign body accidentally left during a procedure Fracture of pubic ramus Primary cancer of ovary with widespread metastatic disease Small bowel obstruction Exercise / Class Metabolic Activity III < 4 Walking/Shop/Light housework Past Surgical History Surgical History History of abdominal surgery History of bowel resection History of total right hip arthroplasty Past Anesthesia History No Hx of Anesthesia Complications History of PONV No Hx of PONV Social History Smoking Status: Current every day smoker tobacco type: e-cigarettes Do You Dip or Chew Tobacco: No Hx Alcohol Use: Yes alcohol intake frequency: holidays/special occasions only Hx Substance Use: No Review of Systems Positive for neck swelling with difficulty swallowing, hoarse voice and mildly SOB NG in place - denies N/V Physical Exam Vital Signs Last Vital Signs Temp 36.6 C 01/07/22 07:27 Pulse 78 01/07/22 07:30 Resp 18 01/07/22 07:27 BP 156/75 H 01/07/22 07:27 Pulse Ox 98 01/07/22 07:27 Constitutional not obese ENMT Mouth: no TMJ abnormality and oral opening not small Thyromental Distance: > or= 3.5 Finger Breadths Mallampati Class: II Neck + limited neck extension Visable swelling throughout anterior neck Respiratory normal respiratory effort Auscultation: lungs clear to auscultation bilaterally Cardiovascular Rate/Rhythm: regular rate and regular rhythm Heart Sounds: no murmur Neurologic moves all extremities Psychiatric Orientation: alert and oriented x 3 Testing Laboratory Results 01/07/22 05:56 01/07/22 05:56 PT 9.8 Seconds (9.0-12.0) 01/05/22 15:07 INR 1.0 (0.9-1.1) 01/05/22 15:07 APTT 72.0 Seconds (21.0-31.0) H* 01/07/22 05:56 Urine Color Yellow 01/06/22 00:50 Urine Appearance Clear (Clear) 01/06/22 00:50 Urine pH 5.0 (4.5-7.5) 01/06/22 00:50 Ur Specific [place] 1.043 (1.000-1.030) H 01/06/22 00:50 Urine Protein Negative (Negative) 01/06/22 00:50 Urine Glucose (UA) Negative (Negative) 01/06/22 00:50 Urine Ketones Negative (Negative) 01/06/22 00:50 Urine Nitrite Negative (Negative) 01/06/22 00:50 Ur Leukocyte Esterase Trace (Negative) H 01/06/22 00:50 Urine WBC (Auto) 5-10 /hpf (0-5) H 01/06/22 00:50 Urine RBC (Auto) 0-4 /hpf (0-4) 01/06/22 00:50 U Hyaline Cast (Auto) 1-5 /lpf (0-5) 01/06/22 00:50 U Epithel Cells (Auto) >30 /lpf (0-5) H 01/06/22 00:50 Urine Bacteria (Auto) Negative (Negative) 01/06/22 00:50
[2022-01-07] MEDS ORDERED: LIDOCAINE VISCOUS 2% 15 ML UDC ONE (10:42)
[2022-01-07] MEDS ORDERED: MIDAZOLAM HCL 1 MG/ML 2ML VIAL ONE (10:43)
[2022-01-07] MEDS ORDERED: ceFAZolin 1000MG 1,000 MG/7.5 ML SYR IV ONE (11:34)
[2022-01-07] MEDS ORDERED: ATROPINE SULFATE 0.1 MG/ML 10ML SYR IV PRN (11:40)
[2022-01-07] MEDS ORDERED: ePHEDrine sulfate 50 MG/ML AMP IV PRN (11:40)
[2022-01-07] MEDS ORDERED: fentaNYL citrate 100 MCG/2 ML VIAL IV PRN ×2 (11:40→11:44)
[2022-01-07] MEDS ORDERED: ONDANSETRON INJ 2 MG/ML 2 ML VIAL IV PRN (11:40)
--- NOTE | 2022-01-07 11:50 | Post Operative Brief Note ---
Immediate Post Op Note v1 Date of Surgery January 07, 2022 Pre & Post Diagnosis Operation Date: 01/06/22 21:30 Pre-Op Diagnosis: Foreign body Post-Op Diagnosis: Foreign body Operation Date: 01/07/22 09:45 Pre-Op Diagnosis: Hematoma Right Neck Post-Op Diagnosis: Hematoma Right Neck I identified the patient and participated in the time-out.: Yes Procedure Operation Date: 01/06/22 21:30 Actual Procedures p Insertion of Vena Cava Filter Femoral approach, Removal of Foreign Body Jugular approach(Not Applicable) - Jamaal Cotter MD Operation Date: 01/07/22 09:45 Actual Procedures p Evacuation of Hematoma and Control of Bleeding Right Neck(Right) - Jamaal Cotter MD Surgeon Jamaal Cotter MD Animal Feeder none Estimated Blood Loss 20 Findings Consistent with Post-Op Diagnosis Anesthesia Type General Complications none Disposition Accompanied Patient To Recovery: No Disposition: Surgical ICU
--- NOTE | 2022-01-07 11:58 | Critical Care Consultation ---
Date of Consultation January 07, 2022 Assessment & Plan (1) Primary cancer of ovary with widespread metastatic disease: The right ovary measures 2.8 x 0.8 x 1.2 cm and the left ovary measures 2.2 x 0.9 x 0.9 cm- from pelvic ultrasound in 10/02 .- Was working on plans for surgical intervention (2) Deep vein thrombosis (DVT) of iliac vein of right lower extremity: Noted to be on same side as incidentally found indeterminant wire -No anticoagulant at this point IVC filter in place (3) Small bowel obstruction: NGT in place, surgical evaluation appreciated - (4) DDD (degenerative disc disease), lumbosacral: Chornic pain with comproession deformities of L2-L3-L4 (5) Critical airway: 6 mg Decadron IV x5 days start peptamen for nutrition Supervising Physician Co-Signing Physician Notes I have personally spent 40 minutes of critical care time in the direct management of this patient. This is a life/limb threatening event. This includes time spent evaluating patient, direct bedside care, chart review, placing orders, interpretation of diagnostic studies, discussion with consultants, patient, and/or family members regarding treatment decisions, as well as other required patient management activities. This time is exclusive of all separately billable procedures, and teaching time and separate from and in addition to any other critical care service time. History of Present Illness Reason for Consultation: Critical Airway Requesting Physician: Cyndee Attending Physician: Saul Kwok MD History of Present Illness Patient is a 66-year-old female with a significant past medical history of small bowel obstruction and metastatic ovarian cancer with provoked DVT of the iliac vein of the right lower extremity. She was found to have a guidewire remaining and underwent wire removal on January 06 which was successful, there was also a filter placed in her IVC during this procedure Patient was on heparin and then had small oozing in the access point and had significant swelling of her neck. She went urgently to the operating room this morning had a difficult airway secondary to edema. Vascular surgery done a hematoma evacuation and she was transferred to the ICU remaining intubated secondary to a critical airway. Allergies Allergy/AdvReac Type Severity Reaction Status Date / Time codeine AdvReac Unknown Unknown Verified 01/05/22 15:51 ibuprofen AdvReac Unknown Unknown Verified 01/05/22 15:51 Home Medications Medication Instructions Recorded Confirmed Type Walking Cane #1 ea 06/22/20 08/05/20 Rx aspirin 81 mg tablet,delayed 81 mg PO DAILY 01/05/22 01/05/22 History release cholecalciferol (vitamin D3) 50 50 mcg PO DAILY 01/05/22 01/05/22 History mcg (2,000 unit) capsule (Vitamin D3) levothyroxine 100 mcg tablet 100 mcg PO DAILY 01/05/22 01/05/22 History rosuvastatin 10 mg tablet 10 mg PO HS 01/05/22 01/05/22 History sennosides 8.6 mg-docusate sodium See Rx Instructions .ROUTE .COMPLEX 01/05/22 01/05/22 History 50 mg tablet (Senokot-S) tramadol 50 mg tablet 50 mg PO Q8H PRN 01/05/22 01/05/22 History Patient History Medical History Deep vein thrombosis (DVT) of iliac vein of right lower extremity Foreign body accidentally left during a procedure Fracture of pubic ramus Primary cancer of ovary with widespread metastatic disease Small bowel obstruction Surgical History History of abdominal surgery History of bowel resection History of total right hip arthroplasty Social History Smoking Status: Current every day smoker Tobacco Type: E-cigarettes / Vaping Second Hand Exposure: Yes; Do You Dip or Chew Tobacco: No; Hx Alcohol Use: Yes Hx Substance Use: No Preferred Language: Irish Communication Ability: Effective Certified Medicine Aide Required: No Beliefs That Will Affect Care: None Current Living Situation: Spouse Other Information That Helps Us Care for You: No Feels Safe at Home: Yes Safety Concerns: Feels Safe At This Time Assistive Devices: Cane, Denture - Upper and Glasses Assistive Devices Comment: uses cane as needed Review of Systems Review of Systems: Unobtainable due to endotracheal tube Physical Exam Physical Exam: General: Sedated. nontoxic. Skin: Warm, dry, Head: Atraumatic Ears, nose, mouth and throat: airway obscured by endotracheal tube, dressing clean dry intact Cardiovascular: Normal peripheral perfusion Respiratory: Ventilator settings reviewed Gastrointestinal: Non distended Musculoskeletal: No deformity Results & Data Results & Data ([facility]) Vital Signs (Past 12 Hours) Vital Signs Temp Pulse Pulse Resp BP Pulse Ox 01/07/22 07:30 78 01/07/22 07:27 36.6 C 84 18 156/75 H 98 01/07/22 03:36 36.5 C 76 18 155/80 H 94 Critical Care Results & Data Vital Signs (Past 12 Hours) Vital Signs Temp Pulse Pulse Resp BP Pulse Ox 01/07/22 10:33 86 18 96 01/07/22 07:30 78 01/07/22 07:27 36.6 C 84 18 156/75 H 98 01/07/22 03:36 36.5 C 76 18 155/80 H 94 Lab & Micro Results (Past 24 Hours) RBC 2.69 M/uL (4.2-5.4) L 01/07/22 WBC 4.75 K/uL (4.8-10.8) L 01/07/22 Hgb 9.0 g/dL (12.0-16.0) L 01/07/22 Hct 26.9 % (37-47) L 01/07/22 MCV 100.0 fL (80-100) 01/07/22 MCH 33.5 pg (25-34) 01/07/22 MCHC 33.5 g/dL (32-36) 01/07/22 RDW Standard Deviation 56.4 fL (36.4-46.3) H 01/07/22 RDW Coefficient of Variation 15.3 % (11.5-14.5) H 01/07/22 Plt Count 182 K/uL (130-400) 01/07/22 MPV 9.3 fL (7.4-10.4) 01/07/22 Neutrophils (%) (Auto) 64.2 % 01/07/22 Lymphocytes (%) (Auto) 19.2 % 01/07/22 Monocytes # (Auto) 0.77 K/uL (0.11-0.59) H 01/07/22 Eosinophils # (Auto) 0.00 K/uL (0-0.5) 01/07/22 Immature Granulocyte % (Auto) 0.2 % 01/07/22 Neutrophils # (Auto) 3.05 K/uL (1.4-6.5) 01/07/22 Lymphocytes # (Auto) 0.91 K/uL (1.2-3.4) L 01/07/22 Monocytes # (Auto) 0.77 K/uL (0.11-0.59) H 01/07/22 Eosinophils # (Auto) 0.00 K/uL (0-0.5) 01/07/22 Basophils # (Auto) 0.01 K/uL (0-0.2) 01/07/22 Immature Granulocyte # (Auto) 0.01 K/uL (0.00-0.02) 01/07/22 Na 139 mmol/L (136-145) 01/07/22 K 3.6 mmol/L (3.5-5.1) 01/07/22 Cl 102 mmol/L (98-107) 01/07/22 CO2 25 mmol/L (21-32) 01/07/22 Anion Gap 12 (3-11) H 01/07/22 BUN 13 mg/dl (6-23) 01/07/22 Creatinine 0.51 mg/dl (0.6-1.2) L 01/07/22 Estimated GFR ( Amer) 117.0 ml/min 01/07/22 Estimated GFR (Non-Af Amer) 100.9 ml/min 01/07/22 BUN/Creatinine Ratio 25.5 (10-20) H 01/07/22 Glu 94 mg/dl (70-99(Fasting)) 01/07/22 Ca 8.0 mg/dl (8.5-10.1) L 01/07/22 Mg 1.5 mg/dl (1.7-2.4) L 01/07/22 05:56 01/07/22 Calcium Level 8.0 mg/dl (8.5-10.1) L 01/07/22 05:56 01/07/22 Diagnostic Findings (Past 24 Hours) KUB X-Ray 01/07/22 04:00 KUB CLINICAL HISTORY: Small bowel obstruction. COMPARISON STUDY: CT of the abdomen and pelvis January 05, 2022. KUB January 06, 2022. FINDINGS: The previously described intradural venous wire has been removed. IVC filter has been placed. Right femoral internal fixation is incidentally noted. Tip of nasogastric tube is within the gastric cardia. Small bowel dilatation has resolved. IMPRESSION: 1. Resolution of small bowel dilatation. 2. Interval placement of an IVC filter. ACT 112: Negative or not required by law. Electronically signed by: Brenden Arboleda M.D. 01/07/2022 7:55 AM I & O Totals 24 Hours 01/06/22 01/07/22 01/08/22 06:59 06:59 06:59 Intake Total 1937 / 1937 4345.500 / 4345.500 76.667 / 76.667 Output Total 900 / 900 1610 / 1610 Balance 1037 / 1037 2735.500 / 2735.500 76.667 / 76.667 Cumulative 01/05/22 13:35 thru 01/07/22 10:30 Intake Total 6359.167 Output Total 2510 Balance 3849.167 RT Ventilator Mngmt (Last Documented) Ventilator Ordered Settings Respiratory Rate 18 01/07/22 10:33 Ventilator - PT Measurements Respiratory Rate 18 Coding Level of Care Code Critical Care 1st 30-74 mins Diagnoses Primary cancer of ovary with widespread metastatic disease C56.9; C80.0 Deep vein thrombosis (DVT) of iliac vein of right lower extremity I82.421 Small bowel obstruction K56.609 DDD (degenerative disc disease), lumbosacral M51.37 Critical airway T88.4XXA
[2022-01-07] MEDS ORDERED: PROPOFOL IV EMULSION 10 MG/ML 100 ML VIAL IV ONE (12:04)
[2022-01-07] MEDS ORDERED: fentaNYL citrate 2,500 MCG/250 ML BAG IV ONE (12:04)
[2022-01-07] MEDS ORDERED: STAT IV Infusion **Titration per Protocol STA (12:09)
[2022-01-07] MEDS ORDERED: PROPOFOL BOLUS FROM BAG IV PRN (12:13)
[2022-01-07] MEDS: propofoL 1,000 MG/100 ML VIAL IV SCH ×2 (12:15→17:37)
[2022-01-07] MEDS: fentaNYL citrate 2,500 MCG/250 ML BAG IV SCH (12:15)
--- NOTE | 2022-01-07 12:42 | XRay Report ---
XR chest 1V portable CLINICAL HISTORY: post intubation COMPARISON STUDY: Chest radiograph January 05, 2022. FINDINGS: Tip of endotracheal tube is 7 mm above the filiberto. The tube could be withdrawn 2 cm. Tip of nasogastric tube projects over the proximal body of the stomach. There is no pneumothorax. Cardiac s ize is normal. Surgical kei within the right lower neck are noted with suspected soft tissue swel ling. There is mild right upper mediastinal widening. Linear left basilar opacity favors atelectasis. There is no evidence for pulmonary edema. Possible trace bilateral pleural effusions. Right internal jugular [id number] is in place. IMPRESSION: 1. Tip of endotracheal tube 7 mm above the filiberto. The tube could be withdrawn 2 cm. 2. Right upper mediastinal widening. This could be due to vessels however a hematoma could appear sim ilar. Short-term radiographic follow-up is recommended. 3. Postoperative findings within the right lower neck with soft tissue swelling. ACT 112: Negative or not required by law. Electronically signed by: Brenden Arboleda M.D. 01/07/2022 12:40 PM
[2022-01-07] MEDS ORDERED: PEPTAMEN INTENSE VHP 1.0 CAL 1,000 ML BAG GT SCH (12:45)
--- NOTE | 2022-01-07 13:37 | Procedure Note ---
Procedure Note Date of Service January 07, 2022 Note Intubation Note Please see associated anesthesia record for additional information on anesthetic care. After securing consent the patient was given 4cc of 4% lidocaine via nebulizer in preop. During this time the patient was noted to be developing stridor and reported increased work of breathing. The patient was taken rapidly to the operating room and transferred to the OR table. ASA monitors were applied and the patient was given 2% viscous lidocaine via "lollipop" to the soft palate and oropharynx. The patent was then preoxygenated with oxygen via mask. The patient was given 1mg midazolam and 20mg of ketamine via IV. An oral airway attached to oxygen was inserted and a pediatric fiberoptic scope was placed. The scope was advanced until immediately before the cords and then 2cc 2% lidocaine injected via oral airway. The scope was advanced beyond the cords. Both the oral airway and bronchial tree were noted to be extremely edematous. Multiple attempts were made to advance a 6.5 ETT over the peds scope into the airway without success. After reconfirming that the scope was still in the bronchus, the patient was given propofol and succinylcholine. The fiberoptic was left in place and the oral airway removed. A #3 blade glidescope handle was inserted to allow visualization of the arytenoids and the ETT was then easily advanced over the fiberoptic and into the airway. ETT tube depth was confirmed via visualization of the filiberto and placement was confirmed via bilateral breath sounds, etCO2 and chest rise. Tube was taped in place on the left side and the patient prepped for surgery. Beryl Cerna MD, PhD Anesthesiologist Coding
--- NOTE | 2022-01-07 13:42 | Anesthesiology Progress Note ---
Date of Service January 07, 2022 Anesthesia Post Procedure Vital Signs Vital Signs: Temp Pulse Pulse Resp BP Pulse Ox Pulse Ox 01/07/22 12:22 98 H 16 100 01/07/22 12:20 89 16 159/87 H 100 01/07/22 12:10 97 H 16 120/76 100 01/07/22 10:33 86 18 96 01/07/22 07:30 78 01/07/22 07:27 36.6 C 84 18 156/75 H 98 01/07/22 03:36 36.5 C 76 18 155/80 H 94 01/06/22 23:32 95 01/06/22 23:20 79 01/06/22 19:17 36.5 C 90 18 158/73 H 95 01/06/22 16:38 36.8 C 72 16 117/71 93 01/06/22 15:35 36.6 C 76 18 134/79 96 01/06/22 14:47 71 18 121/73 92 01/06/22 14:21 36.5 C 73 18 108/66 94 01/06/22 14:05 66 16 98/60 L 94 01/06/22 13:55 36.4 C L 67 16 91/60 L 94 01/06/22 13:45 68 12 84/53 L 97 Pain Intensity Abdomen: Pain Intensity: 10 Right Neck: Pain Intensity: 4 Transfer of Care Handoff Completed per policy Notes Mental Status: see notes below Patient Amnestic to Procedure: Yes Nausea / Vomiting: adequately controlled Pain: adequately controlled Airway Patency, RR, SpO2: stable & adequate BP & HR: stable & adequate Hydration State: stable & adequate Anesthetic Complications: no major complications apparent and see Notes below Notes: Due to continued airway swelling the patient was left intubated and taken to the ICU.
[2022-01-07] MEDS: dexAMETHasone 6 MG in SYRINGE 0 ML IV SCH (13:45)
[2022-01-07 14:17] LABS: Partial Thromboplastin Time 25.1 Seconds (21.0-31.0)
--- NOTE | 2022-01-07 14:47 | Surgery Progress Note ---
Date of Service January 07, 2022 Assessment & Plan (1) Small bowel obstruction: Plan: F/U SBO, no vomiting, no fever, no distend at abdomen, plan, continue conservative treatment, repeat labs and KUB in morning, If general surgical intervention is indicated, would recommend transfer to a tertiary facility. will F/U, Admission and Anticipated Discharge Date Admission Date: January 05, 2022 Supervising Physician Co-Signing Physician Notes I have personally spent 40 minutes of critical care time in the direct management of this patient. This is a life/limb threatening event. This includes time spent evaluating patient, direct bedside care, chart review, placing orders, interpretation of diagnostic studies, discussion with consultants, patient, and/or family members regarding treatment decisions, as well as other required patient management activities. This time is exclusive of all separately billable procedures, and teaching time and separate from and in addition to any other critical care service time. Subjective Patient with swelling of right side of neck 01/07/2022 Dr. Maguire F/U SBO, pt just had Evacuation of Hematoma and Control of Bleeding Right Nec by vascular surgeon, DR. Cotter pt is still intubation, pt's daughter at bedside, no BM yet, no vomiting, Physical Exam Constitutional: intubated Neck: the dressing on right side neck intact, Respiratory: normal respiratory effort, lungs clear to auscultation Cardiovascular: RRR, no murmur, no edema Gastrointestinal (Abdomen): soft, NO distend, BS = Results & Data ([facility]) Vital Signs (Past 12 Hours) Vital Signs Temp Pulse Pulse Resp BP Pulse Ox 01/07/22 12:22 98 H 16 100 01/07/22 12:20 89 16 159/87 H 100 01/07/22 12:10 97 H 16 120/76 100 01/07/22 10:33 86 18 96 01/07/22 07:30 78 01/07/22 07:27 36.6 C 84 18 156/75 H 98 01/07/22 03:36 36.5 C 76 18 155/80 H 94 Laboratory Results Abnormal lab results 01/07/22 01/07/22 01/07/22 Range/Units 05:56 05:56 05:56 WBC 4.75 L (4.8-10.8) K/uL RBC 2.69 L (4.2-5.4) M/uL Hgb 9.0 L (12.0-16.0) g/dL Hct 26.9 L (37-47) % RDW Std Deviation 56.4 H (36.4-46.3) fL RDW Coeff of Marianela 15.3 H (11.5-14.5) % Lymph # (Auto) 0.91 L (1.2-3.4) K/uL Shannon # (Auto) 0.77 H (0.11-0.59) K/uL APTT 72.0 H* (21.0-31.0) Seconds Anion Gap 12 H (3-11) Creatinine 0.51 L (0.6-1.2) mg/dl BUN/Creatinine Ratio 25.5 H (10-20) Calcium 8.0 L (8.5-10.1) mg/dl Magnesium 1.5 L (1.7-2.4) mg/dl Crossmatch 01/07/22 Range/Units 10:15 WBC (4.8-10.8) K/uL RBC (4.2-5.4) M/uL Hgb (12.0-16.0) g/dL Hct (37-47) % RDW Std Deviation (36.4-46.3) fL RDW Coeff of Marianela (11.5-14.5) % Lymph # (Auto) (1.2-3.4) K/uL Shannon # (Auto) (0.11-0.59) K/uL APTT (21.0-31.0) Seconds Anion Gap (3-11) Creatinine (0.6-1.2) mg/dl BUN/Creatinine Ratio (10-20) Calcium (8.5-10.1) mg/dl Magnesium (1.7-2.4) mg/dl Crossmatch See Detail
[2022-01-07] MEDS: NORMOSOL-R 1,000 ML IV SCH (15:22)
[2022-01-08] MEDS ORDERED: LACTATED RINGER'S 1,000 ML IV ONE (00:04)
[2022-01-08] MEDS: MAGNESIUM SULFATE / D5W 1 GM/100 ML BAG IV SCH ×2 (00:32→02:13)
[2022-01-08] MEDS: propofoL 1,000 MG/100 ML VIAL IV SCH ×3 (02:44→19:15)
[2022-01-08 04:36] LABS: iSTAT Allen Test Pass; iSTAT Arterial Blood Gas HCO3 29 meg/L (19-24); iSTAT Arterial Blood Gas pCO2 38 mmHg (35-46); iSTAT Arterial Blood Gas pH 7.48 (7.35-7.45); iSTAT Arterial Blood Gas pO2 87 mmHg (80-95); iSTAT Carbon Dioxide 30 mmol/L (24-31); iSTAT Site R Radial
[2022-01-08] MEDS: NORMOSOL-R 1,000 ML IV SCH (05:10)
[2022-01-08 06:24] LABS: Albumin Level 3.2 gm/dl (3.4-5.0); Bilirubin Direct 0.1 mg/dl (0-0.2); Bilirubin,Total 0.3 mg/dl (0.2-1.0); Calcium 8.1 mg/dl (8.5-10.1); Creatinine Clr Calc Pharmacy 108.2 ml/min; Est GFR (African American) 116.2 ml/min; Est GFR (Non-African American) 100.3 ml/min; Magnesium 2.3 mg/dl (1.7-2.4); Phosphorus 3.6 mg/dl (2.5-4.9); Potassium 3.4 mmol/L (3.5-5.1); Total Protein 5.3 gm/dl (6.0-8.3)
--- NOTE | 2022-01-08 08:47 | Surgery Progress Note ---
Date of Service January 08, 2022 Assessment & Plan (1) Hematoma of neck: Plan: No further bleeding seen. Length of intubation dependent on laryngeal edema. Filler Picker following patient. Admission and Anticipated Discharge Date Admission Date: January 05, 2022 Subjective Awake. Communicates by writing. Physical Exam Constitutional: WD/WN, vitals as above Neck: trachea midline Neck swelling not worse. No drainage from wound Cardiovascular: Rate/Rhythm: regular rate and regular rhythm Results & Data ([facility]) Vital Signs (Past 12 Hours) Vital Signs Temp Pulse Resp BP Pulse Ox 01/08/22 07:15 64 15 98 01/08/22 06:00 84 15 99 01/08/22 05:30 59 L 14 126/63 97 01/08/22 05:00 59 L 12 118/66 97 01/08/22 04:30 61 12 142/73 H 95 01/08/22 04:28 63 14 95 01/08/22 04:00 36.4 C L 58 L 13 100/60 97 01/08/22 03:30 101/62 01/08/22 03:20 66 16 95 01/08/22 03:00 61 14 96/58 L 95 01/08/22 02:10 66 16 103/62 93 01/08/22 01:01 74 21 152/76 H 95 01/08/22 01:00 93 H 20 93 01/08/22 00:00 67 16 99/59 L 96 01/07/22 23:52 36.4 C L 01/07/22 23:00 63 16 97/54 L 96 01/07/22 22:58 63 16 97 01/07/22 22:00 71 14 89/55 L 96 01/07/22 21:00 69 14 92/60 L 96 01/07/22 20:50 73 16 95
[2022-01-08] MEDS: fentaNYL citrate 2,500 MCG/250 ML BAG IV SCH (09:52)
--- NOTE | 2022-01-08 10:36 | Critical Care Progress Note ---
Date of Service January 08, 2022 Assessment & Plan (1) Primary cancer of ovary with widespread metastatic disease: Plan: The right ovary measures 2.8 x 0.8 x 1.2 cm and the left ovary measures 2.2 x 0.9 x 0.9 cm- from pelvic ultrasound in 10/02 .- Was working on plans for surgical intervention (2) Deep vein thrombosis (DVT) of iliac vein of right lower extremity: Plan: Noted to be on same side as incidentally found indeterminant wire -No anticoagulant at this point IVC filter in place (3) Small bowel obstruction: Plan: NGT in place, surgical evaluation appreciated - (4) DDD (degenerative disc disease), lumbosacral: Plan: Chornic pain with comproession deformities of L2-L3-L4 (5) Critical airway: Plan: 6 mg Decadron IV x5 days -Goal to remain net negative Admission and Anticipated Discharge Date Admission Date: January 05, 2022 Subjective Awake denies pain communicates by writing Review of Systems Review of Systems: Denies pain Physical Exam Physical Exam: General: Awake following commands. nontoxic. Skin: Warm, dry, Head: Atraumatic Ears, nose, mouth and throat: airway obscured by endotracheal tube, dressing clean dry intact, enlarged upper neck Cardiovascular: Normal peripheral perfusion Respiratory: Ventilator settings reviewed Gastrointestinal: Non distended Musculoskeletal: No deformity Results & Data Results & Data ([facility]) Vital Signs (Past 12 Hours) Vital Signs Temp Pulse Resp BP Pulse Ox 01/08/22 07:15 64 15 98 01/08/22 06:00 84 15 99 01/08/22 05:30 59 L 14 126/63 97 01/08/22 05:00 59 L 12 118/66 97 01/08/22 04:30 61 12 142/73 H 95 01/08/22 04:28 63 14 95 01/08/22 04:00 36.4 C L 58 L 13 100/60 97 01/08/22 03:30 101/62 01/08/22 03:20 66 16 95 01/08/22 03:00 61 14 96/58 L 95 01/08/22 02:10 66 16 103/62 93 01/08/22 01:01 74 21 152/76 H 95 01/08/22 01:00 93 H 20 93 01/08/22 00:00 67 16 99/59 L 96 01/07/22 23:52 36.4 C L 01/07/22 23:00 63 16 97/54 L 96 01/07/22 22:58 63 16 97 Critical Care Results & Data Vital Signs (Past 12 Hours) Vital Signs Temp Pulse Resp BP Pulse Ox 01/08/22 07:15 64 15 98 01/08/22 06:00 84 15 99 01/08/22 05:30 59 L 14 126/63 97 01/08/22 05:00 59 L 12 118/66 97 01/08/22 04:30 61 12 142/73 H 95 01/08/22 04:28 63 14 95 01/08/22 04:00 36.4 C L 58 L 13 100/60 97 01/08/22 03:30 101/62 01/08/22 03:20 66 16 95 01/08/22 03:00 61 14 96/58 L 95 01/08/22 02:10 66 16 103/62 93 01/08/22 01:01 74 21 152/76 H 95 01/08/22 01:00 93 H 20 93 01/08/22 00:00 67 16 99/59 L 96 01/07/22 23:52 36.4 C L 01/07/22 23:00 63 16 97/54 L 96 01/07/22 22:58 63 16 97 Lab & Micro Results (Past 24 Hours) No Data to Display Na 139 mmol/L (136-145) 01/08/22 K 3.4 mmol/L (3.5-5.1) L 01/08/22 Cl 101 mmol/L (98-107) 01/08/22 CO2 29 mmol/L (21-32) 01/08/22 Anion Gap 9 (3-11) 01/08/22 BUN 13 mg/dl (6-23) 01/08/22 Creatinine 0.52 mg/dl (0.6-1.2) L 01/08/22 Estimated GFR ( Amer) 116.2 ml/min 01/08/22 Estimated GFR (Non-Af Amer) 100.3 ml/min 01/08/22 BUN/Creatinine Ratio 25.0 (10-20) H 01/08/22 Glu 81 mg/dl (70-99(Fasting)) 01/08/22 Ca 8.1 mg/dl (8.5-10.1) L 01/08/22 Phosphorus Level 3.6 mg/dl (2.5-4.9) 01/08/22 Total Bilirubin 0.3 mg/dl (0.2-1.0) 01/08/22 Direct Bilirubin 0.1 mg/dl (0-0.2) 01/08/22 AST 11 U/L (13-39) L 01/08/22 ALT 8 U/L (7-52) 01/08/22 Alkaline Phosphatase 54 U/L (34-104) 01/08/22 TP 5.3 gm/dl (6.0-8.3) L 01/08/22 Albumin 3.2 gm/dl (3.4-5.0) L 01/08/22 Mg 2.3 mg/dl (1.7-2.4) 01/08/22 04:51 01/08/22 Calcium Level 8.1 mg/dl (8.5-10.1) L 01/08/22 04:51 01/08/22 William Test Pass 01/08/22 04:21 01/08/22 Diagnostic Findings (Past 24 Hours) Chest X-Ray 01/07/22 11:56 XR chest 1V portable CLINICAL HISTORY: post intubation COMPARISON STUDY: Chest radiograph January 05, 2022. FINDINGS: Tip of endotracheal tube is 7 mm above the filiberto. The tube could be withdrawn 2 cm. Tip of nasogastric tube projects over the proximal body of the stomach. There is no pneumothorax. Cardiac size is normal. Surgical kei within the right lower neck are noted with suspected soft tissue swelling. There is mild right upper mediastinal widening. Linear left basilar opacity favors atelectasis. There is no evidence for pulmonary edema. Possible trace bilateral pleural effusions. Right internal jugular [id number] is in place. IMPRESSION: 1. Tip of endotracheal tube 7 mm above the filiberto. The tube could be withdrawn 2 cm. 2. Right upper mediastinal widening. This could be due to vessels however a hematoma could appear similar. Short-term radiographic follow-up is recommended. 3. Postoperative findings within the right lower neck with soft tissue swelling. ACT 112: Negative or not required by law. Electronically signed by: Brenden Arboleda M.D. 01/07/2022 12:40 PM I & O Totals 24 Hours 01/07/22 01/08/22 01/09/22 06:59 06:59 06:59 Intake Total 4345.500 / 4345.500 1702.742 / 1702.742 193.200 / 193.200 Output Total 1610 / 1610 565 / 565 Balance 2735.500 / 2735.500 1137.742 / 1137.742 193.200 / 193.200 Cumulative 01/05/22 13:35 thru 01/08/22 09:53 Intake Total 8178.442 Output Total 3075 Balance 5103.442 RT Ventilator Mngmt (Last Documented) Ventilator Ordered Settings Ventilator Support Mode PRVC 01/08/22 10:09 Respiratory Rate 15 01/08/22 07:15 Ventilator Tidal Volume 340 01/08/22 10:09 Setting Minute Ventilation 4.6 01/08/22 07:15 Positive End Expiratory 5 01/08/22 10:09 Pressure Fraction of Inspired Oxygen 30 01/08/22 10:09 Machine Comment Changed to PRVC per Dr. Gomes 01/07/22 15:24 Order. Ventilator - PT Measurements Respiratory Rate 15 Exhaled Tidal Volume 330 Minute Ventilation 4.6 Peak Inspiratory Airway 15 Pressure Plateau Pressure 12.7 Respiratory Cycle Inspiratory: 1:3.3 Expiratory Ratio Inspiratory Phase Time 1.0 End-Tidal CO2 33 Static Lung Compliance 42.86 Dynamic Lung Compliance 33.00 Normal Static Lung Compliance 47.00 Coding Level of Care Code Critical Care 1st 30-74 mins Diagnoses Primary cancer of ovary with widespread metastatic disease C56.9; C80.0 Deep vein thrombosis (DVT) of iliac vein of right lower extremity I82.421 Small bowel obstruction K56.609 DDD (degenerative disc disease), lumbosacral M51.37 Critical airway T88.4XXA
[2022-01-08] MEDS: dexAMETHasone 6 MG in SYRINGE 0 ML IV SCH (12:12)
--- NOTE | 2022-01-08 14:19 | Surgery Progress Note ---
Date of Service January 08, 2022 Assessment & Plan (1) Small bowel obstruction: Plan: F/U SBO, no vomiting, no fever, no distend at abdomen, plan, continue conservative treatment, repeat labs and KUB in morning, If general surgical intervention is indicated, would recommend transfer to a tertiary facility. will F/U, 01/08/2022 2:21PM Dr. miller, Resolution of small bowel dilatation. put out Ng tube, pt can have clear diet after extubated will F/U Admission and Anticipated Discharge Date Admission Date: January 05, 2022 Supervising Physician Co-Signing Physician Notes I have personally spent 40 minutes of critical care time in the direct management of this patient. This is a life/limb threatening event. This includes time spent evaluating patient, direct bedside care, chart review, placing orders, interpretation of diagnostic studies, discussion with consultants, patient, and/or family members regarding treatment decisions, as well as other required patient management activities. This time is exclusive of all separately billable procedures, and teaching time and separate from and in addition to any other critical care service time. Subjective F/u SBO, pt is still intubation, pt is awake, alert, denies abdominal pain, passed some gas, no BMIMPRESSION: 1. Resolution of small bowel dilatation. yet, KUB( 01/07/2022) minimal NG tube out put Physical Exam Respiratory: normal respiratory effort, lungs clear to auscultation Cardiovascular: RRR, no murmur, no edema Gastrointestinal (Abdomen): soft, NT, ND BS + Neurologic: patellar DTR's 2+ bilat, sensation intact Psychiatric: A+Ox3, euthymic affect Results & Data ([facility]) Vital Signs (Past 12 Hours) Vital Signs Temp Pulse Resp BP Pulse Ox 01/08/22 11:40 65 14 97 01/08/22 10:35 69 14 89/53 L 95 01/08/22 10:30 71 14 102/57 L 97 01/08/22 10:25 81 14 111/64 94 01/08/22 10:24 76 14 115/62 96 01/08/22 10:20 85 15 92 01/08/22 10:10 63 14 98 01/08/22 10:00 63 12 106/57 L 98 01/08/22 09:50 63 14 99 01/08/22 09:40 65 15 99 01/08/22 09:30 63 14 103/58 L 99 01/08/22 09:20 64 14 99 01/08/22 09:10 63 14 98 01/08/22 09:00 36.0 C L 62 12 107/59 L 97 01/08/22 08:50 66 14 98 01/08/22 08:40 66 14 98 01/08/22 08:30 64 12 121/66 98 01/08/22 08:20 86 19 99 01/08/22 08:10 72 14 99 01/08/22 08:00 63 12 109/62 99 01/08/22 07:50 64 14 100 01/08/22 07:40 63 14 99 01/08/22 07:30 64 12 125/66 98 01/08/22 07:20 68 14 97 01/08/22 07:15 64 15 98 01/08/22 07:10 85 14 99 01/08/22 07:00 61 14 117/65 98 01/08/22 06:50 63 12 98 01/08/22 06:40 62 14 98 01/08/22 06:30 75 16 130/77 98 01/08/22 06:20 80 14 97 01/08/22 06:10 75 14 97 01/08/22 06:01 80 15 151/122 H 100 01/08/22 06:00 84 15 99 01/08/22 05:30 59 L 14 126/63 97 01/08/22 05:00 59 L 12 118/66 97 01/08/22 04:30 61 12 142/73 H 95 01/08/22 04:28 63 14 95 01/08/22 04:00 36.4 C L 58 L 13 100/60 97 01/08/22 03:30 101/62 01/08/22 03:20 66 16 95 01/08/22 03:00 61 14 96/58 L 95 Laboratory Results Abnormal lab results 01/08/22 01/08/22 Range/Units 04:21 04:51 POC pH 7.48 H (7.35-7.45) POC HCO3 29 H (19-24) edith/L POC Base Excess 5.0 H (-9-1.8) edith/L POC ABG O2 Sat 97.0 H (90-95) % Potassium 3.4 L (3.5-5.1) mmol/L Creatinine 0.52 L (0.6-1.2) mg/dl BUN/Creatinine Ratio 25.0 H (10-20) Calcium 8.1 L (8.5-10.1) mg/dl AST 11 L (13-39) U/L Total Protein 5.3 L (6.0-8.3) gm/dl Albumin 3.2 L (3.4-5.0) gm/dl Diagnostic Findings KUB CLINICAL HISTORY: Small bowel obstruction. COMPARISON STUDY: CT of the abdomen and pelvis January 05, 2022. KUB January 06, 2022. FINDINGS: The previously described intradural venous wire has been removed. IVC filter has been placed. Right femoral internal fixation is incidentally noted. Tip of nasogastric tube is within the gastric cardia. Small bowel dilatation has resolved. IMPRESSION: 1. Resolution of small bowel dilatation. 2. Interval placement of an IVC filter.
[2022-01-08] MEDS ORDERED: POTASSIUM CHLORIDE 20 MEQ/15 ML UDC PO STA (17:03)
--- NOTE | 2022-01-08 20:23 | Hospitalist Progress Note ---
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 She was found to have a high-grade small bowel obstruction with concern for adhesions. Hospital course was complicated by a wire appreciated on CT scan which transversed SVC, IVC, and terminated in the right iliac vein is not present on imaging September 01. Only medical procedures since that time was a Mediport placement. She underwent uncomplicated removal of wire 12/17. Small bowel obstruction CTA/P: Findings are consistent with a high-grade small bowel obstruction. There is a cluster of thick-walled, twisted appearing, and tethered bowel loops in the ventral lower abdomen and this is likely on the basis of adhesions. Thre are focally thick walled bowel loops at the site of obstruction with mesenteric edema and interloop fluid. No pneumatosis intestinalis or portal venous gas is seen. These loops may be risk for ischemia and surgical assessment is advised. An indeterminant catheter or wire extends from the lower chest, traverses the heart and IVC, and terminates in the right iliac vein. There is associated right iliac vein deep venous thrombosis. No intraperitoneal free air is identified. NGT in place, on low intermittent suction Surgery consulted. Recommended n.p.o., IV fluids, KUB follow-up tomorrow morning. Noted that she is currently on chemotherapy and surgical intervention of bowel obstructions from metastatic ovarian cancer can be technically challenging requiring large resections of matted bowel, given her complicated history and cancer if she were to require surgical intervention recommended that this be performed at tertiary care center/[facility]. Of note her original oncologist has moved from [facility]. See additional notatin below Morphine as needed for breakthrough pain Zofran as needed for nausea [facility] contacted 01/06, continue medical management of SBO at this time. --If not improving patient may be appropriate to transfer to surgical service at that time, Additional evaluation from oncology perspective limited by locum coverage at this time and would be admitted to general surgical service. Patient with ETT in place as below,? Trophic feeds if ETT remains in place SBO began to improve with flatus. --mild improve noted on exam (2) Neck swelling: Plan: - Patient status post insertion of vena cava filter femoral approach removal of foreign body jugular approach 01/06, wire noted above on CT was removed Overnight into 01/07 with increased neck swelling underlying right IJ access site, wound without dehiscence Trachea midline, no wheezing/stridor, but with throat clearing and small airway Heparin stopped Vascular surgery contacted, patient underwent hematoma evacuation and intubation for airway protection Daughter updated by phone and again at bedside Remains intubated for airway protection --appreciate input from critical care team (3) Primary cancer of ovary with widespread metastatic disease: Plan: Primary ovarian cancer, with metastasis CT as above The right ovary measures 2.8 x 0.8 x 1.2 cm and the left ovary measures 2.2 x 0.9 x 0.9 cm- from pelvic ultrasound in 10/02 Patient was working on surgical intervention for potential ovarian resection with oncology as outpatient. Given extensive adhesions and SBO, if she were to have abdominal surgery may benefit from a consolidated surgical approach. This was discussed with [facility] professor of music/onc for reviewing the case. 01/06: Discussed with on-call gynecology [facility]. Note available indicating that her prior bowel resection showed adenoma of unknown primary, subsequent follow- up suspicious for ovarian primary and patient was pending additional outpatient work-up. Had recommended outpatient follow-up if SBO resolves, if SBO does not improve with medical treatment recontact and keep updated and may be appropriate for transfer at that time. Call w/ update Tuesday 01/09,continue medical management. (4) Deep vein thrombosis (DVT) of iliac vein of right lower extremity: Plan: - Noted to be on same side as incidentally found indeterminant wire -Heparin drip discontinued, vena cava in place Patient s/p removal of foreign body via jugular approach with insertion of vena cava filter femoral approach 01/06/2022, uncomplicated under fluoroscopic guidance. (5) DDD (degenerative disc disease), lumbosacral: Plan: Chronic pain with compression deformities of L2-L3-L4 Patient with morphine for breakthrough pain control with SBO as above Plan: DVT prophylaxis: SCDs Diet: N.p.o., NGT LIS. LR 110 cc/h Disposition: ICU CODE STATUS: Full code Admission and Anticipated Discharge Date Admission Date: January 05, 2022 Subjective Patient is intubated. Review of Systems Review of Systems: Unobtainable due to endotracheal tube Physical Exam Physical Exam: General: intubated HEENT: Right neck with IJ incision intact, but severe underlying swelling. Pulm: No stridor, no wheeze. Symmetrical chest rise. No increased work of breathing. Cardiac: RRR, -mrg. Radial pulses intact and symmetrical. Abdominal: Ventral hernia, reducible mildly tender to palpation. No abd rigidity . No rebound tenderness. BS absent. Ext: R medial ankle with bony abnormality 2/2 bone graft. PT pulse intact to palp bilaterally, radial pulse intact to palp bilaterally. Results & Data Results & Data ([facility]) Vital Signs (Past 12 Hours) Vital Signs Temp Pulse Resp BP Pulse Ox 01/08/22 19:40 61 15 99 01/08/22 18:15 59 L 14 98 01/08/22 18:00 60 14 110/65 99 01/08/22 17:45 63 14 99 01/08/22 17:39 36.1 C L 01/08/22 17:30 77 16 97 01/08/22 17:15 75 16 100 01/08/22 17:00 64 14 103/60 98 01/08/22 16:45 62 14 97 01/08/22 16:30 62 14 97 01/08/22 16:15 80 16 98 01/08/22 16:00 68 14 116/66 96 01/08/22 15:55 82 19 98 01/08/22 15:45 79 14 96 01/08/22 15:30 65 12 95 01/08/22 15:15 76 13 95 01/08/22 15:00 66 12 110/65 95 01/08/22 14:45 73 13 95 01/08/22 14:31 81 15 95 01/08/22 14:15 66 14 94 01/08/22 14:00 74 15 141/75 H 94 01/08/22 13:45 77 14 98 01/08/22 13:30 85 15 96 01/08/22 13:15 84 14 89 L 01/08/22 13:00 84 16 122/82 99 01/08/22 12:55 65 14 87/48 L 98 01/08/22 12:50 67 12 101/53 L 98 01/08/22 12:45 73 14 108/54 L 97 01/08/22 12:40 67 14 98/49 L 100 01/08/22 12:35 66 12 94/52 L 99 01/08/22 12:30 69 14 101/49 L 100 01/08/22 12:25 68 14 100/47 L 99 01/08/22 12:20 67 12 96/49 L 99 01/08/22 12:15 102 H 28 H 112/61 98 01/08/22 12:10 70 14 101/59 L 98 01/08/22 12:05 66 12 101/52 L 99 01/08/22 12:00 65 14 98/52 L 97 01/08/22 11:55 81 14 116/72 98 01/08/22 11:50 83 14 114/73 97 01/08/22 11:45 70 14 111/58 L 96 01/08/22 11:40 69 14 101/58 L 97 01/08/22 10:35 69 14 89/53 L 95 01/08/22 10:30 71 14 102/57 L 97 01/08/22 10:25 81 14 111/64 94 01/08/22 10:24 76 14 115/62 96 01/08/22 10:20 85 15 92 01/08/22 10:10 63 14 98 01/08/22 10:00 63 12 106/57 L 98 01/08/22 09:50 63 14 99 01/08/22 09:40 65 15 99 01/08/22 09:30 63 14 103/58 L 99 01/08/22 09:20 64 14 99 01/08/22 09:10 63 14 98 01/08/22 09:00 36.0 C L 62 12 107/59 L 97 01/08/22 08:50 66 14 98 01/08/22 08:40 66 14 98 01/08/22 08:30 64 12 121/66 98 PG Care Time/CCT Total # of Minutes Spent Total Time Spent with Patient: Total time spent is greater than 50% in coordination of care (as documented) at patient's floor/unit and/or counseling patient: Coding Level of Care Code 21840 Subseq Hosp Care Lvl 2 Diagnoses Small bowel obstruction K56.609 Neck swelling R22.1 Primary cancer of ovary with widespread metastatic disease C56.9; C80.0 Deep vein thrombosis (DVT) of iliac vein of right lower extremity I82.421 DDD (degenerative disc disease), lumbosacral M51.37 Time Spent (min) 25
[2022-01-09] MEDS: propofoL 1,000 MG/100 ML VIAL IV SCH ×3 (01:54→08:40)
[2022-01-09 04:04] LABS: iSTAT Allen Test Pass; iSTAT Arterial Blood Gas HCO3 30 meg/L (19-24); iSTAT Arterial Blood Gas pCO2 42 mmHg (35-46); iSTAT Arterial Blood Gas pH 7.46 (7.35-7.45); iSTAT Arterial Blood Gas pO2 159 mmHg (80-95); iSTAT Carbon Dioxide 31 mmol/L (24-31); iSTAT Site L Radial
[2022-01-09 05:03] LABS: Eosinophils # (auto) 0.01 K/uL (0-0.5); Eosinophils % (auto) 0.2 %; Hemoglobin 7.9 g/dL (12.0-16.0); Immature Granulocytes # (auto) 0.01 K/uL (0.00-0.02); Immature Granulocytes % (auto) 0.2 %; Lymphocytes # (auto) 1.25 K/uL (1.2-3.4); Lymphocytes % (auto) 21.5 %; Mean Corpuscular Hemoglobin 33.6 pg (25-34); Mean Corpuscular Hgb Conc 32.9 g/dL (32-36); Mean Corpuscular Volume 102.1 fL (80-100); Mean Platelet Volume 9.1 fL (7.4-10.4); Monocytes # (auto) 0.49 K/uL (0.11-0.59); Monocytes % (auto) 8.4 %; Neutrophils # (auto) 4.05 K/uL (1.4-6.5); Neutrophils % (auto) 69.7 %; Platelet Count 127 K/uL (130-400); RDW Coefficient of Variation 15.7 % (11.5-14.5); RDW Standard Deviation 58.1 fL (36.4-46.3); Red Blood Count 2.35 M/uL (4.2-5.4); White Blood Count 5.81 K/uL (4.8-10.8)
[2022-01-09 05:27] LABS: RBC Morphology Unremarkable
[2022-01-09 05:32] LABS: Calcium 8.3 mg/dl (8.5-10.1); Creatinine Clr Calc Pharmacy 112.6 ml/min; Est GFR (African American) 117.7 ml/min; Est GFR (Non-African American) 101.6 ml/min; Phosphorus 3.6 mg/dl (2.5-4.9); Potassium 3.8 mmol/L (3.5-5.1)
[2022-01-09] MEDS ORDERED: METOPROLOL TARTRATE 1 MG/ML VIAL IV ONE (08:14)
[2022-01-09] MEDS ORDERED: METOPROLOL TARTRATE 1 MG/ML VIAL IV STA (08:20)
--- NOTE | 2022-01-09 08:24 | Critical Care Progress Note ---
Date of Service January 09, 2022 Assessment & Plan (1) Primary cancer of ovary with widespread metastatic disease: Plan: The right ovary measures 2.8 x 0.8 x 1.2 cm and the left ovary measures 2.2 x 0.9 x 0.9 cm- from pelvic ultrasound in 10/02 .- Was working on plans for surgical intervention (2) Deep vein thrombosis (DVT) of iliac vein of right lower extremity: Plan: Noted to be on same side as incidentally found indeterminant intravascular wire which has been removed. -No anticoagulant at this point IVC filter in place (3) Small bowel obstruction: Plan: NGT in place, surgical evaluation appreciated (4) DDD (degenerative disc disease), lumbosacral: Plan: Chornic pain with comproession deformities of L2-L3-L4 (5) Critical airway: Plan: 6 mg Decadron IV x5 days -Goal to remain net negative (6) Atrial fibrillation with RVR: Plan: Optimize electrolytes and prn IV metoprolol Plan: Stable for downgrade out of ICU Admission and Anticipated Discharge Date Admission Date: January 05, 2022 Subjective Patient following all commands and doing well on spontaneous breathing trial. She was successfully extubated to room air after was determined that she had a cuff leak. Review of Systems Review of Systems: All systems reviewed & are unremarkable except as noted in HPI & below Physical Exam Physical Exam: General: Awake following commands. nontoxic. Skin: Warm, dry, Head: Atraumatic Ears, nose, mouth and throat: airway obscured by endotracheal tube, dressing clean dry intact, enlarged upper neck Cardiovascular: Normal peripheral perfusion Respiratory: Ventilator settings reviewed Gastrointestinal: Non distended Musculoskeletal: No deformity Results & Data Results & Data ([facility]) Vital Signs (Past 12 Hours) Vital Signs Temp Pulse Resp BP Pulse Ox 01/09/22 07:12 78 16 100 01/09/22 05:20 79 14 92 01/09/22 05:14 86 13 169/86 H 99 01/09/22 05:10 83 16 98 01/09/22 05:01 85 15 100 01/09/22 05:00 86 21 98 01/09/22 04:50 66 14 100 01/09/22 04:40 59 L 14 100 01/09/22 04:30 58 L 14 100 01/09/22 04:20 68 16 100 01/09/22 04:10 61 14 100 01/09/22 04:01 56 L 14 99 01/09/22 04:00 60 14 139/74 100 01/09/22 03:50 55 L 14 100 01/09/22 03:40 66 14 100 01/09/22 03:37 36.6 C 01/09/22 03:30 52 L 14 99 01/09/22 03:20 51 L 14 99 01/09/22 03:10 50 L 14 99 01/09/22 03:00 50 L 14 114/61 99 01/09/22 02:50 50 L 14 99 01/09/22 02:40 51 L 12 98 01/09/22 02:30 55 L 14 98 01/09/22 02:20 51 L 14 98 01/09/22 02:10 52 L 12 99 01/09/22 02:00 52 L 14 122/64 98 01/09/22 01:50 50 L 14 99 01/09/22 01:40 51 L 12 99 01/09/22 01:30 51 L 14 99 01/09/22 01:20 51 L 14 100 01/09/22 01:10 51 L 12 100 01/09/22 01:00 52 L 14 123/69 100 01/09/22 00:50 73 15 100 01/09/22 00:40 51 L 12 99 01/09/22 00:30 52 L 14 99 01/09/22 00:20 50 L 14 100 01/09/22 00:10 50 L 14 99 01/09/22 00:07 36.4 C L 01/09/22 00:00 51 L 14 92/60 L 99 01/08/22 23:50 51 L 14 99 01/08/22 23:40 54 L 14 99 01/08/22 23:30 54 L 14 99 01/08/22 23:20 53 L 14 99 01/08/22 23:10 54 L 14 100 01/08/22 23:06 51 L 01/08/22 23:00 54 L 14 103/57 L 99 01/08/22 22:50 53 L 14 99 01/08/22 22:42 51 L 14 99 01/08/22 20:37 36.3 C L Coding Level of Care Code 04932 Subseq [facility] Care Lvl 3 Diagnoses Primary cancer of ovary with widespread metastatic disease C56.9; C80.0 Deep vein thrombosis (DVT) of iliac vein of right lower extremity I82.421 Small bowel obstruction K56.609 DDD (degenerative disc disease), lumbosacral M51.37 Critical airway T88.4XXA Atrial fibrillation with RVR I48.91
--- NOTE | 2022-01-09 08:27 | XRay Report ---
XR chest 1V portable CLINICAL HISTORY: Resp failure. COMPARISON STUDY: 01/07/2022 TECHNIQUE: 1 view of the chest FINDINGS: Single frontal view of the chest demonstrates the cardiomediastinal silhouette to be within normal li mits. Tubes and catheters are unchanged. There is no evidence for mediastinal widening on the current study. The lungs are clear of alveolar opacities. There is no evidence for pleural effusion. There i s no evidence for vascular congestion. There is no acute osseous pathology. IMPRESSION: 1. No acute cardiopulmonary disease. 2. Tubes and catheters are unchanged as described. ACT 112: Negative or not required by law. Electronically signed by: Alex Daley M.D. 01/09/2022 8:25 AM
[2022-01-09] MEDS: fentaNYL citrate 2,500 MCG/250 ML BAG IV SCH (08:39)
[2022-01-09] MEDS: POTASSIUM CHLORIDE / WTR 10 MEQ/100 ML PLCT IV SCH ×2 (08:41→10:10)
[2022-01-09] MEDS ORDERED: dilTIAZem HCl 5 MG/ML 5 ML VIAL IV STA (09:36)
[2022-01-09] MEDS ORDERED: STAT IV Infusion **Titration per Protocol STA ×2 (09:36→10:27)
[2022-01-09] MEDS ORDERED: dilTIAZem HCL 125 MG in DEXTROSE 5% 100 ML IV SCH (09:45)
--- NOTE | 2022-01-09 09:53 | Surgery Progress Note ---
Date of Service January 09, 2022 Assessment & Plan (1) Hematoma of neck: Plan: Pt doing well post op and post extubation. Further care per medical/ICU/gen surgery team. Will see in office in 2 weeks for staple removal and wound check. Please call if needed. Admission and Anticipated Discharge Date Admission Date: January 05, 2022 Subjective 66 yo f POD #3 after removal of venous foreign body and POD #2 after evacuation of R neck hematoma, seen in f/u today. Pt was extubated and states is feeling well. States she is hungry and all ofher abd pain is resolved. Admits some soreness to R neck surgical site. No other new complaints. Review of Systems Review of Systems: All systems reviewed & are unremarkable except as noted in HPI & below Physical Exam Constitutional: WD/WN, vitals as above + thin, cooperative and comfortable; not in distress Neck: R neck surgical incision C/D/I with kei. + local soft ecchymosis and edema mild. Psychiatric: A+Ox3, euthymic affect Results & Data ([facility]) Vital Signs (Past 12 Hours) Vital Signs Temp Pulse Resp BP Pulse Ox 01/09/22 08:41 146 H 154/94 H 01/09/22 07:12 78 16 100 01/09/22 05:20 79 14 92 01/09/22 05:14 86 13 169/86 H 99 01/09/22 05:10 83 16 98 01/09/22 05:01 85 15 100 01/09/22 05:00 86 21 98 01/09/22 04:50 66 14 100 01/09/22 04:40 59 L 14 100 01/09/22 04:30 58 L 14 100 01/09/22 04:20 68 16 100 01/09/22 04:10 61 14 100 01/09/22 04:01 56 L 14 99 01/09/22 04:00 60 14 139/74 100 01/09/22 03:50 55 L 14 100 01/09/22 03:40 66 14 100 01/09/22 03:37 36.6 C 01/09/22 03:30 52 L 14 99 01/09/22 03:20 51 L 14 99 01/09/22 03:10 50 L 14 99 01/09/22 03:00 50 L 14 114/61 99 01/09/22 02:50 50 L 14 99 01/09/22 02:40 51 L 12 98 01/09/22 02:30 55 L 14 98 01/09/22 02:20 51 L 14 98 01/09/22 02:10 52 L 12 99 01/09/22 02:00 52 L 14 122/64 98 01/09/22 01:50 50 L 14 99 01/09/22 01:40 51 L 12 99 01/09/22 01:30 51 L 14 99 01/09/22 01:20 51 L 14 100 01/09/22 01:10 51 L 12 100 01/09/22 01:00 52 L 14 123/69 100 01/09/22 00:50 73 15 100 01/09/22 00:40 51 L 12 99 01/09/22 00:30 52 L 14 99 01/09/22 00:20 50 L 14 100 01/09/22 00:10 50 L 14 99 01/09/22 00:07 36.4 C L 01/09/22 00:00 51 L 14 92/60 L 99 01/08/22 23:50 51 L 14 99 01/08/22 23:40 54 L 14 99 01/08/22 23:30 54 L 14 99 01/08/22 23:20 53 L 14 99 01/08/22 23:10 54 L 14 100 01/08/22 23:06 51 L 01/08/22 23:00 54 L 14 103/57 L 99 01/08/22 22:50 53 L 14 99 01/08/22 22:42 51 L 14 99
[2022-01-09] MEDS ORDERED: AMIODARONE IV BOLUS & DRIP IV STA (10:27)
[2022-01-09] MEDS ORDERED: AMIODARONE / D5W 150 MG/100 ML BAG IV STA (10:27)
[2022-01-09] MEDS ORDERED: 0.2 MICRON FILTER SET 1 EA IV ONE (10:27)
--- NOTE | 2022-01-09 10:44 | Surgery Progress Note ---
Date of Service January 09, 2022 Assessment & Plan (1) Small bowel obstruction: Plan: Pt here with SBO, she is s/p recent small bowel resection 12/14 to metastatic ovarian cancer Events noted from over the weekend. She is currently extubated today and awake/alert KUB from 01/07 showed resolving SBO and NGT has been removed Pt denies abdominal complaints, and abdomen is soft/nontender. She is passing flatus She is working with speech therapy at the moment, if she passes she may start a clear liquid diet Admission and Anticipated Discharge Date Admission Date: January 05, 2022 Supervising Physician Co-Signing Physician Notes Pnt seen and examined, agree with above. Retained guidewire retrieved over weekend, taken back on Sunday for hematoma. Extubated this morning, passing flatus, tolerating clears. Abd soft, nd, nt. advance to low fiber tomorrow if tolerates. Subjective Patient denies any abdominal complaints, no nausea/vomiting, pain. She is passing flatus. Physical Exam Physical Exam: awake/alert Respiratory: normal respiratory effort Gastrointestinal (Abdomen): Percussion/Palpation: abdomen soft; abdomen nontender Results & Data ([facility]) Vital Signs (Past 12 Hours) Vital Signs Temp Pulse Resp BP Pulse Ox 01/09/22 08:41 146 H 154/94 H 01/09/22 07:12 78 16 100 01/09/22 05:20 79 14 92 01/09/22 05:14 86 13 169/86 H 99 01/09/22 05:10 83 16 98 01/09/22 05:01 85 15 100 01/09/22 05:00 86 21 98 01/09/22 04:50 66 14 100 01/09/22 04:40 59 L 14 100 01/09/22 04:30 58 L 14 100 01/09/22 04:20 68 16 100 01/09/22 04:10 61 14 100 01/09/22 04:01 56 L 14 99 01/09/22 04:00 60 14 139/74 100 01/09/22 03:50 55 L 14 100 01/09/22 03:40 66 14 100 01/09/22 03:37 36.6 C 01/09/22 03:30 52 L 14 99 01/09/22 03:20 51 L 14 99 01/09/22 03:10 50 L 14 99 01/09/22 03:00 50 L 14 114/61 99 01/09/22 02:50 50 L 14 99 01/09/22 02:40 51 L 12 98 01/09/22 02:30 55 L 14 98 01/09/22 02:20 51 L 14 98 01/09/22 02:10 52 L 12 99 01/09/22 02:00 52 L 14 122/64 98 01/09/22 01:50 50 L 14 99 01/09/22 01:40 51 L 12 99 01/09/22 01:30 51 L 14 99 01/09/22 01:20 51 L 14 100 01/09/22 01:10 51 L 12 100 01/09/22 01:00 52 L 14 123/69 100 01/09/22 00:50 73 15 100 01/09/22 00:40 51 L 12 99 01/09/22 00:30 52 L 14 99 01/09/22 00:20 50 L 14 100 01/09/22 00:10 50 L 14 99 01/09/22 00:07 36.4 C L 01/09/22 00:00 51 L 14 92/60 L 99 01/08/22 23:50 51 L 14 99 01/08/22 23:40 54 L 14 99 01/08/22 23:30 54 L 14 99 01/08/22 23:20 53 L 14 99 01/08/22 23:10 54 L 14 100 01/08/22 23:06 51 L 01/08/22 23:00 54 L 14 103/57 L 99 01/08/22 22:50 53 L 14 99 01/08/22 22:42 51 L 14 99 PG Care Time/CCT Total # of Minutes Spent Total Time Spent with Patient: Total time spent is greater than 50% in coordination of care (as documented) at patient's floor/unit and/or counseling patient: Coding Level of Care Code 28573 Subseq Hosp Care Lvl 1 Diagnoses Small bowel obstruction K56.609
--- NOTE | 2022-01-09 11:39 | Cardiology Consultation ---
Date of Consultation January 09, 2022 Assessment & Plan (1) Atrial fibrillation with RVR: -likely secondary to her critical illness and profound anemia. -would initiate intravenous amiodarone in place of diltiazem infusion. -would use IV and oral metoprolol tartrate. (2) Hypercholesterolemia: -resume rosuvastatin when able. History of Present Illness Attending Physician: Eduardo Lanier History of Present Illness Mrs. Clayton is a 66-year-old female admitted on January 05 with a small-bowel obstruction and a right iliac DVT. The patient developed atrial fibrillation with a rapid ventricular response earlier today, and therefore, this consultation was ordered. The patient carries a history of metastatic ovarian carcinoma. This was diagnosed in May 2021 when she underwent a small bowel resection for small bowel obstruction. Pathology revealed ovarian carcinoma. The patient is curre ntly on chemotherapy as directed by Dr. Saha. As above, she was admitted with a small-bowel obstruction. Conservative management was suggested due to her diagnosis of metastatic ovarian carcinoma. However, at the time of admission, she was noted to have a wire extending from the right internal jugular vein to the right iliac vein with an associated thrombus distal to the wire. The patient had an Xzonod-U-Eenj placed in September 2021 at an outside institution. On January 06 and, the patient was taken to the operating room where [place] filter was placed from the left femoral vein. Then a cutdown was then performed on the right internal jugular vein and the foreign body wire was removed. Unfortunately, the patient developed respiratory distress from a large hematoma in the right neck requiring urgent transfer to the operating room for intubation and evacuation of the neck hematoma. Fortunately, the patient was extubated this morning. She did develop atrial fibrillation with a rapid ventricular response at approximately 8:00 a.m. today. She is completely asymptomatic denying palpitations. The patient has never had a prior episode of atrial fibrillation. She has never had a cardiac event nor has she undergone a cardiac catheterization. Currently, patient is resting comfortably in the bedside chair and without complaints. Past medical and surgical history 1. Hypercholesterolemia 2. Degenerative disc disease 3. Hypothyroidism 4. Metastatic ovarian carcinoma-May 2021 5. Small-bowel resection-May 2021 6. Msgrhp-H-Mgdk-September 2021 7. Right THR Social history and lives with her Smokes 1 pack of cigarettes daily Social alcohol Family history Noncontributory Review of systems A 10 review systems was negative except that described above. Allergies Allergy/AdvReac Type Severity Reaction Status Date / Time codeine AdvReac Unknown Unknown Verified 01/05/22 15:51 ibuprofen AdvReac Unknown Unknown Verified 01/05/22 15:51 Home Medications Medication Instructions Recorded Confirmed Type Walking Cane #1 ea 06/22/20 08/05/20 Rx aspirin 81 mg tablet,delayed 81 mg PO DAILY 01/05/22 01/05/22 History release cholecalciferol (vitamin D3) 50 50 mcg PO DAILY 01/05/22 01/05/22 History mcg (2,000 unit) capsule (Vitamin D3) levothyroxine 100 mcg tablet 100 mcg PO DAILY 01/05/22 01/05/22 History rosuvastatin 10 mg tablet 10 mg PO HS 01/05/22 01/05/22 History sennosides 8.6 mg-docusate sodium See Rx Instructions .ROUTE .COMPLEX 01/05/22 01/05/22 History 50 mg tablet (Senokot-S) tramadol 50 mg tablet 50 mg PO Q8H PRN 01/05/22 01/05/22 History Patient History Medical History (Updated 01/09/22 @ 12:06 by Murali Potter MD) Atrial fibrillation with RVR Deep vein thrombosis (DVT) of iliac vein of right lower extremity Foreign body accidentally left during a procedure Fracture of pubic ramus Primary cancer of ovary with widespread metastatic disease Small bowel obstruction Surgical History History of abdominal surgery History of bowel resection History of total right hip arthroplasty Social History Smoking Status: Current every day smoker Tobacco Type: E-cigarettes / Vaping Second Hand Exposure: Yes; Do You Dip or Chew Tobacco: No; Hx Alcohol Use: Yes Hx Substance Use: No Preferred Language: [place] Leonean Communication Ability: Effective Script Artist Required: No Beliefs That Will Affect Care: None Current Living Situation: Spouse Other Information That Helps Us Care for You: No Feels Safe at Home: Yes Safety Concerns: Feels Safe At This Time Assistive Devices: Glasses and Oxygen - Continuous Assistive Devices Comment: uses cane as needed Physical Exam Physical Exam: In general is well-developed well-nourished white male in no acute distress. HEENT exam is negative. Neck is supple with full carotid upstrokes. There are no carotid bruits. Well-healing scar noted in the right supraclavicular region. Diffuse ecchymoses across the neck. Cardiovascular exam reveals irregular irregular rhythm with a rapid rate. No obvious murmurs. Lungs are clear without rales, rhonchi or wheezes. Abdomen is soft without bruits. Extremities reveal intact radial artery pulses bilaterally. There is no peripheral edema. Results & Data ([facility]) Vital Signs (Past 12 Hours) Vital Signs Temp Pulse Resp BP Pulse Ox 01/09/22 10:00 142 H 14 115/86 91 01/09/22 09:01 125 H 8 L 138/75 92 01/09/22 09:00 127 H 19 95 01/09/22 08:41 146 H 154/94 H 01/09/22 08:01 158 H 28 H 156/94 H 98 01/09/22 08:00 110 H 18 96 01/09/22 07:12 78 16 100 01/09/22 07:00 79 14 153/84 H 100 01/09/22 06:45 58 L 14 100 01/09/22 05:20 79 14 92 01/09/22 05:14 86 13 169/86 H 99 01/09/22 05:10 83 16 98 01/09/22 05:01 85 15 100 01/09/22 05:00 86 21 98 01/09/22 04:50 66 14 100 01/09/22 04:40 59 L 14 100 01/09/22 04:30 58 L 14 100 01/09/22 04:20 68 16 100 01/09/22 04:10 61 14 100 01/09/22 04:01 56 L 14 99 01/09/22 04:00 60 14 139/74 100 01/09/22 03:50 55 L 14 100 01/09/22 03:40 66 14 100 01/09/22 03:37 36.6 C 01/09/22 03:30 52 L 14 99 01/09/22 03:20 51 L 14 99 01/09/22 03:10 50 L 14 99 01/09/22 03:00 50 L 14 114/61 99 01/09/22 02:50 50 L 14 99 01/09/22 02:40 51 L 12 98 01/09/22 02:30 55 L 14 98 01/09/22 02:20 51 L 14 98 01/09/22 02:10 52 L 12 99 01/09/22 02:00 52 L 14 122/64 98 01/09/22 01:50 50 L 14 99 01/09/22 01:40 51 L 12 99 01/09/22 01:30 51 L 14 99 01/09/22 01:20 51 L 14 100 01/09/22 01:10 51 L 12 100 01/09/22 01:00 52 L 14 123/69 100 01/09/22 00:50 73 15 100 01/09/22 00:40 51 L 12 99 01/09/22 00:30 52 L 14 99 01/09/22 00:20 50 L 14 100 01/09/22 00:10 50 L 14 99 01/09/22 00:07 36.4 C L 01/09/22 00:00 51 L 14 92/60 L 99 01/08/22 23:50 51 L 14 99 01/08/22 23:40 54 L 14 99 Laboratory Results CBC notes hemoglobin 7.9, hematocrit 24.0, white count 5.8, and platelet count [id number]. Electrolytes note a sodium of 139, potassium 3.8, chloride 103, bicarb 27, BUN 11, creatinine 0.5, glucose 105, and magnesium normal at 2.0. Diagnostic Findings night monitor notes atrial fibrillation with a rapid ventricular response. PG Care Time/CCT Total # of Minutes Spent Total Time Spent with Patient: Total time spent is greater than 50% in coordination of care (as documented) at patient's floor/unit and/or counseling patient: Coding Level of Care Code 15778 Inpt Consult Level 4 Diagnoses Atrial fibrillation with RVR I48.91 Hypercholesterolemia E78.00
[2022-01-09] MEDS ORDERED: AMIODARONE / D5W 360 MG/200 ML BAG IV ONE (11:45)
[2022-01-09] MEDS: dexAMETHasone 6 MG in SYRINGE 0 ML IV SCH (12:08)
[2022-01-09] MEDS: AMIODARONE / D5W 360 MG/200 ML BAG IV SCH (17:09)
[2022-01-09] MEDS: ACETAMINOPHEN 325 MG TAB PO PRN (19:59)
--- NOTE | 2022-01-09 21:21 | Hospitalist Progress Note ---
Date of Service January 09, 2022 Assessment & Plan (1) Small bowel obstruction: Plan: Yesi is a pleasant 66-year-old female with a past history of hyperlipidemia, hypothyroidism, primary ovarian cancer with metastatic disease to the stomach, history of abdominal tumor resection with bowel removal and reanastomosis, and ventral hernia who presented with 1 day of acute worsening abdominal pain with nausea and vomiting. She was found to have a high-grade small bowel obstruction with concern for adhesions. Hospital course was complicated by a wire appreciated on CT scan which transversed SVC, IVC, and terminated in the right iliac vein is not present on imaging September 01. Only medical procedures since that time was a Mediport placement. She underwent uncomplicated removal of wire 12/17. Small bowel obstruction CTA/P: Findings are consistent with a high-grade small bowel obstruction. There is a cluster of thick-walled, twisted appearing, and tethered bowel loops in the ventral lower abdomen and this is likely on the basis of adhesions. Thre are focally thick walled bowel loops at the site of obstruction with mesenteric edema and interloop fluid. No pneumatosis intestinalis or portal venous gas is seen. These loops may be risk for ischemia and surgical assessment is advised. An indeterminant catheter or wire extends from the lower chest, traverses the heart and IVC, and terminates in the right iliac vein. There is associated right iliac vein deep venous thrombosis. No intraperitoneal free air is identified. NGT in place, on low intermittent suction Surgery consulted. Recommended n.p.o., IV fluids, KUB follow-up tomorrow morning. Noted that she is currently on chemotherapy and surgical intervention of bowel obstructions from metastatic ovarian cancer can be technically challenging requiring large resections of matted bowel, given her complicated history and cancer if she were to require surgical intervention recommended that this be performed at tertiary care center/[facility]. Of note her original oncologist has moved from [facility]. See additional notatin below Morphine as needed for breakthrough pain Zofran as needed for nausea [facility] contacted 01/06, continue medical management of SBO at this time. --If not improving patient may be appropriate to transfer to surgical service at that time, Additional evaluation from oncology perspective limited by locum coverage at this time and would be admitted to general surgical service. Patient with ETT in place as below,? Trophic feeds if ETT remains in place SBO began to improve with flatus. --mild improve noted on exam -Now extubated, tolerating diet, passing gas. (2) Neck swelling: Plan: - Patient status post insertion of vena cava filter femoral approach removal of foreign body jugular approach 01/06, wire noted above on CT was removed Overnight into 01/07 with increased neck swelling underlying right IJ access site, wound without dehiscence Trachea midline, no wheezing/stridor, but with throat clearing and small airway Heparin stopped Vascular surgery contacted, patient underwent hematoma evacuation and intubation for airway protection Daughter updated by phone and again at bedside now extubated. (3) Primary cancer of ovary with widespread metastatic disease: Plan: Primary ovarian cancer, with metastasis CT as above The right ovary measures 2.8 x 0.8 x 1.2 cm and the left ovary measures 2.2 x 0.9 x 0.9 cm- from pelvic ultrasound in 10/02 Patient was working on surgical intervention for potential ovarian resection with oncology as outpatient. Given extensive adhesions and SBO, if she were to have abdominal surgery may benefit from a consolidated surgical approach. This was discussed with [facility] recycler/onc for reviewing the case. 01/06: Discussed with on-call gynecology [facility]. Note available indicating that her prior bowel resection showed adenoma of unknown primary, subsequent follow- up suspicious for ovarian primary and patient was pending additional outpatient work-up. Had recommended outpatient follow-up if SBO resolves, if SBO does not improve with medical treatment recontact and keep updated and may be appropriate for transfer at that time. Call w/ update Tuesday 01/09,continue medical management. (4) Deep vein thrombosis (DVT) of iliac vein of right lower extremity: Plan: - Noted to be on same side as incidentally found indeterminant wire -Heparin drip discontinued, vena cava in place Patient s/p removal of foreign body via jugular approach with insertion of vena cava filter femoral approach 01/06/2022, uncomplicated under fluoroscopic guidance. (5) DDD (degenerative disc disease), lumbosacral: Plan: Chronic pain with compression deformities of L2-L3-L4 Patient with morphine for breakthrough pain control with SBO as above Plan: DVT prophylaxis: SCDs Admission and Anticipated Discharge Date Admission Date: January 05, 2022 Subjective Patient reports tolerating diet, and passing gas. Review of Systems Review of Systems: All systems reviewed & are unremarkable except as noted in HPI & below Physical Exam Physical Exam: General: intubated HEENT: Right neck with IJ incision intact, but severe underlying swelling. Pulm: No stridor, no wheeze. Symmetrical chest rise. No increased work of breathing. Cardiac: RRR, -mrg. Radial pulses intact and symmetrical. Abdominal: Ventral hernia, reducible mildly tender to palpation. No abd rigidity. No rebound tenderness. BS absent. Ext: R medial ankle with bony abnormality 2/2 bone graft. PT pulse intact to palp bilaterally, radial pulse intact to palp bilaterally. Results & Data Results & Data ([facility]) Vital Signs (Past 12 Hours) Vital Signs Temp Pulse Pulse Resp BP BP Pulse Ox 01/09/22 20:01 36.8 C 89 20 145/96 H 93 01/09/22 20:00 97 H 01/09/22 18:00 97 H 21 136/78 96 01/09/22 17:00 75 14 136/80 96 01/09/22 16:00 73 14 135/80 94 01/09/22 15:05 88 18 140/82 94 01/09/22 15:00 87 18 01/09/22 14:00 120 H 16 128/85 92 01/09/22 13:00 133 H 15 139/88 94 01/09/22 12:00 112 H 16 103/72 93 01/09/22 11:00 144 H 15 126/87 94 01/09/22 10:00 142 H 14 115/86 91 PG Care Time/CCT Total # of Minutes Spent Total Time Spent with Patient: Total time spent is greater than 50% in coordination of care (as documented) at patient's floor/unit and/or counseling patient: Coding Level of Care Code 34603 Subseq Hosp Care Lvl 2 Diagnoses Small bowel obstruction K56.609 Neck swelling R22.1 Primary cancer of ovary with widespread metastatic disease C56.9; C80.0 Deep vein thrombosis (DVT) of iliac vein of right lower extremity I82.421 DDD (degenerative disc disease), lumbosacral M51.37
[2022-01-09] MEDS: DOCUSATE SODIUM 100 MG CAP PO SCH (21:28)
[2022-01-10] MEDS: AMIODARONE / D5W 360 MG/200 ML BAG IV SCH ×2 (04:52→18:10)
[2022-01-10 06:19] LABS: BUN Creatinine Ratio 17.2 (10-20); Creatinine Clr Calc Pharmacy 89.1 ml/min; Est GFR (African American) 108.5 ml/min; Est GFR (Non-African American) 93.6 ml/min; Magnesium 1.7 mg/dl (1.7-2.4); Phosphorus 3.3 mg/dl (2.5-4.9); Potassium 3.8 mmol/L (3.5-5.1)
[2022-01-10] MEDS: DOCUSATE SODIUM 100 MG CAP PO SCH ×2 (08:12→20:22)
--- NOTE | 2022-01-10 10:04 | Surgery Progress Note ---
Date of Service January 10, 2022 Assessment & Plan (1) Small bowel obstruction: Plan: Pt here with SBO, she is s/p recent small bowel resection 2/2 to metastatic ovarian cancer -Patient tolerating full liquids. Did have some belly discomfort yesterday evening, but improved today. no n/v -Continues to pass flatus, no BM -Recommended to take it slow, appears diet has been advanced for lunch -If develops any further abdominal symptoms concerning for SBO would back jud ent down to NPO and re-evaluate. No plans for surgical intervention here, if fails needs consideration for transfer to tertiary facility given her history -We will follow peripherally, please call with questions/concerns Admission and Anticipated Discharge Date Admission Date: January 05, 2022 Subjective Patient feels well this AM. Tolerating full liquids, no n/v/pain. Passing flatus, no BM. Did experience some belly discomfort and bloating yesterday evening that has passed, and did not feel similar to when she came in. Doesn't necessarily feel hungry for more food at the moment. Physical Exam Physical Exam: awake/alert, sitting up in bed Gastrointestinal (Abdomen): Percussion/Palpation: abdomen soft; abdomen nontender Results & Data ([facility]) Vital Signs (Past 12 Hours) Vital Signs Temp Pulse Resp BP Pulse Ox 01/10/22 08:00 36.4 C L 67 16 121/78 99 01/10/22 04:36 36.6 C 75 13 143/79 H 94 01/10/22 00:02 36.5 C 65 14 151/80 H 96 PG Care Time/CCT Total # of Minutes Spent Total Time Spent with Patient: Total time spent is greater than 50% in coordination of care (as documented) at patient's floor/unit and/or counseling patient: Coding Level of Care Code 61600 Subseq Hosp Care Lvl 1 Diagnoses Small bowel obstruction K56.609
--- NOTE | 2022-01-10 10:25 | Cardiology Progress Note ---
Date of Service January 10, 2022 Assessment & Plan (1) Atrial fibrillation with RVR: Plan: -likely secondary to her critical illness and profound anemia. -converted to sinus rhythm on intravenous amiodarone. -which change to amiodarone 200 mg b.i.d. once infusion complete. -long-term anticoagulation seems risky realizing her malignancy and significant anemia. -decide on long-term anticoagulation as an outpatient. (2) Hypercholesterolemia: Plan: -resume rosuvastatin when able. Admission and Anticipated Discharge Date Admission Date: January 05, 2022 Subjective The patient is resting comfortably in the bedside chair without complaints of chest pain, dyspnea, or palpitations. Physical Exam Physical Exam: In general is well-developed well-nourished white male in no acute distress. HEENT exam is negative. Neck is supple with full carotid upstrokes. There are no carotid bruits. Well-healing scar noted in the right supraclavicular region. Diffuse ecchymoses across the neck. Cardiovascular exam reveals a regular rhythm with a normal S1 and S2. No obvious murmurs. Lungs are clear without rales, rhonchi or wheezes. Abdomen is soft without bruits. Extremities reveal intact radial artery pulses bilaterally. There is no peripheral edema. Results & Data ([facility]) Vital Signs (Past 12 Hours) Vital Signs Temp Pulse Resp BP Pulse Ox 01/10/22 08:00 36.4 C L 67 16 121/78 99 01/10/22 04:36 36.6 C 75 13 143/79 H 94 01/10/22 00:02 36.5 C 65 14 151/80 H 96 Diagnostic Findings cardiac monitor technician notes normal sinus rhythm. The patient converted from atrial fibrillation approximately 3:00 p.m. yesterday. PG Care Time/CCT Total # of Minutes Spent Total Time Spent with Patient: Total time spent is greater than 50% in coordination of care (as documented) at patient's floor/unit and/or counseling patient: Coding Level of Care Code 22481 Subseq Hosp Care Lvl 3 Diagnoses Atrial fibrillation with RVR I48.91 Hypercholesterolemia E78.00
[2022-01-10] MEDS: dexAMETHasone 6 MG in SYRINGE 0 ML IV SCH (11:57)
--- NOTE | 2022-01-10 13:03 | Electrocardiogram Report ---
Test Reason : Blood Pressure : / mmHG Vent. Rate : 073 BPM Atrial Rate : 073 BPM P-R Int : 158 ms QRS Dur : 070 ms QT Int : 376 ms P-R-T Axes : 088 000 022 degrees QTc Int : 414 ms Poor data quality, interpretation may be adversely affected Normal sinus rhythm Low voltage QRS Borderline ECG No previous ECGs available Confirmed by Murali Potter ([id number]) on 01/10/2022 1:03:24 PM Referred By: REFERRED SELF Confirmed By:Murali Potter
[2022-01-10] MEDS: ACETAMINOPHEN 325 MG TAB PO PRN (13:54)
--- NOTE | 2022-01-10 20:48 | Hospitalist Progress Note ---
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 She was found to have a high-grade small bowel obstruction with concern for adhesions. Hospital course was complicated by a wire appreciated on CT scan which transversed SVC, IVC, and terminated in the right iliac vein is not present on imaging September 01. Only medical procedures since that time was a Mediport placement. She underwent uncomplicated removal of wire 12/17. Small bowel obstruction CTA/P: Findings are consistent with a high-grade small bowel obstruction. There is a cluster of thick-walled, twisted appearing, and tethered bowel loops in the ventral lower abdomen and this is likely on the basis of adhesions. Thre are focally thick walled bowel loops at the site of obstruction with mesenteric edema and interloop fluid. No pneumatosis intestinalis or portal venous gas is seen. These loops may be risk for ischemia and surgical assessment is advised. An indeterminant catheter or wire extends from the lower chest, traverses the heart and IVC, and terminates in the right iliac vein. There is associated right iliac vein deep venous thrombosis. No intraperitoneal free air is identified. NGT in place, on low intermittent suction Surgery consulted. Recommended n.p.o., IV fluids, KUB follow-up tomorrow morning. Noted that she is currently on chemotherapy and surgical intervention of bowel obstructions from metastatic ovarian cancer can be technically challenging requiring large resections of matted bowel, given her complicated history and cancer if she were to require surgical intervention recommended that this be [place] [place] Of note her original oncologist has moved from [facility]. See additional notatin below Morphine as needed for breakthrough pain Zofran as needed for nausea [facility] [place], continue medical management of SBO at this time. --If not improving patient may be appropriate to transfer to surgical service at that time, Additional evaluation from oncology perspective limited by locum coverage at this time and would be admitted to general surgical service. Patient with ETT in place as below,? Trophic feeds if ETT remains in place SBO began to improve with flatus. --mild improve noted on exam -Now extubated, tolerating diet, passing gas. slowly advancing diet: now on heart healthy low fiber diet. will continue to monitor, if tolerates this. May consider discharge. (2) Neck swelling: Plan: - Patient status post insertion of vena cava filter femoral approach removal of foreign body jugular approach 01/06, wire noted above on CT was removed Overnight into 01/07 with increased neck swelling underlying right IJ access site, wound without dehiscence Trachea midline, no wheezing/stridor, but with throat clearing and small airway Heparin stopped Vascular surgery contacted, patient underwent hematoma evacuation and intubation for airway protection Daughter updated by phone and again at bedside now extubated. (3) Primary cancer of ovary with widespread metastatic disease: Plan: Primary ovarian cancer, with metastasis CT as above The right ovary measures 2.8 x 0.8 x 1.2 cm and the left ovary measures 2.2 x 0.9 x 0.9 cm- from pelvic ultrasound in 10/02 Patient was working on surgical intervention for potential ovarian resection with oncology as outpatient. Given extensive adhesions and SBO, if she were to have abdominal surgery may benefit from a consolidated surgical approach. This was discussed with [facility] materials handling equipment operator/onc for reviewing the case. 01/06: Discussed with on-call gynecology [facility] [place] Note available indicating that her prior bowel resection showed adenoma of unknown primary, subsequent follow- up suspicious for ovarian primary and patient was pending additional outpatient work-up. Had recommended outpatient follow-up if SBO resolves, if SBO does not improve with medical treatment recontact and keep updated and may be appropriate for transfer at that time. continue medical management. Plan is for patient to followup with [facility] at [place]. Daughter is arranging followup, Nurse navigator is also aware. (4) Deep vein thrombosis (DVT) of iliac vein of right lower extremity: Plan: - Noted to be on same side as incidentally found indeterminant wire -Heparin drip discontinued, vena cava in place Patient s/p removal of foreign body via jugular approach with insertion of vena cava filter femoral approach 01/06/2022, uncomplicated under fluoroscopic guidance. (5) DDD (degenerative disc disease), lumbosacral: Plan: Chronic pain with compression deformities of L2-L3-L4 Patient with morphine for breakthrough pain control with SBO as above Plan: DVT prophylaxis: SCDs Admission and Anticipated Discharge Date Admission Date: January 05, 2022 Subjective Patient reported some mild distention in the AM. Since then she has been tolerating her meals. Continues to pass gas. updated son at bedside. Review of Systems Review of Systems: All systems reviewed & are unremarkable except as noted in HPI & below Physical Exam Physical Exam: General: extubated HEENT: Right neck with IJ incision intact, but severe underlying swelling. Pulm: No stridor, no wheeze. Symmetrical chest rise. No increased work of breathing. Cardiac: RRR, -mrg. Radial pulses intact and symmetrical. Abdominal: Ventral hernia, reducible mildly tender to palpation. No abd rigidity. No rebound tenderness. improved BS Ext: R medial ankle with bony abnormality 2/2 bone graft. PT pulse intact to palp bilaterally, radial pulse intact to palp bilaterally. Results & Data Results & Data ([facility]) Vital Signs (Past 12 Hours) Vital Signs Temp Pulse Resp BP Pulse Ox 01/10/22 15:31 36.6 C 71 16 154/75 H 96 01/10/22 12:00 36.6 C 71 16 160/83 H 96 PG Care Time/CCT Total # of Minutes Spent Total Time Spent with Patient: Total time spent is greater than 50% in coordination of care (as documented) at patient's floor/unit and/or counseling patient: Coding Level of Care Code 06294 Subseq Hosp Care Lvl 2 Diagnoses Small bowel obstruction K56.609 Neck swelling R22.1 Primary cancer of ovary with widespread metastatic disease C56.9; C80.0 Deep vein thrombosis (DVT) of iliac vein of right lower extremity I82.421 DDD (degenerative disc disease), lumbosacral M51.37
[2022-01-10] MEDS: hydrOXYzine HCl 25 MG TAB PO PRN (21:16)
[2022-01-11 05:27] LABS: Hematocrit (blood only) 26.1 % (37-47); Hemoglobin 8.5 g/dL (12.0-16.0); Mean Corpuscular Hemoglobin 33.1 pg (25-34); Mean Corpuscular Hgb Conc 32.6 g/dL (32-36); Mean Corpuscular Volume 101.6 fL (80-100); Mean Platelet Volume 9.8 fL (7.4-10.4); Platelet Count 150 K/uL (130-400); RDW Coefficient of Variation 15.6 % (11.5-14.5); RDW Standard Deviation 55.9 fL (36.4-46.3); Red Blood Count 2.57 M/uL (4.2-5.4); White Blood Count 5.35 K/uL (4.8-10.8)
[2022-01-11 05:59] LABS: Albumin Globulin Ratio 1.4 (0.9-2); Albumin Level 3.3 gm/dl (3.4-5.0); BUN Creatinine Ratio 21.8 (10-20); Bilirubin,Total 0.5 mg/dl (0.2-1.0); Calcium 8.9 mg/dl (8.5-10.1); Creatinine Clr Calc Pharmacy 103.7 ml/min; Est GFR (African American) 114.1 ml/min; Est GFR (Non-African American) 98.4 ml/min; Globulin 2.4 gm/dl (2.5-4.0); Magnesium 1.5 mg/dl (1.7-2.4); Phosphorus 3.2 mg/dl (2.5-4.9); Potassium 3.7 mmol/L (3.5-5.1); Total Protein 5.7 gm/dl (6.0-8.3)
[2022-01-11 06:20] LABS: Immature Granulocytes # (auto) 0.01 K/uL (0.00-0.02); Immature Granulocytes % (auto) 0.2 %; Lymphocytes # (auto) 1.62 K/uL (1.2-3.4); Lymphocytes % (auto) 30.3 %; Monocytes # (auto) 0.56 K/uL (0.11-0.59); Monocytes % (auto) 10.5 %; Neutrophils # (auto) 3.16 K/uL (1.4-6.5); RBC Morphology Unremarkable
--- NOTE | 2022-01-11 07:44 | Hospitalist Progress Note ---
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 She was found to have a high-grade small bowel obstruction with concern for adhesions. Hospital course was complicated by a wire appreciated on CT scan which transversed SVC, IVC, and terminated in the right iliac vein is not present on imaging September 01. Only medical procedures since that time was a Mediport placement. She underwent uncomplicated removal of wire 12/17. Small bowel obstruction CTA/P: Findings are consistent with a high-grade small bowel obstruction. There is a cluster of thick-walled, twisted appearing, and tethered bowel loops in the ventral lower abdomen and this is likely on the basis of adhesions. There are focally thick walled bowel loops at the site of obstruction with mesenteric edema and interloop fluid. No pneumatosis intestinalis or portal venous gas is seen. These loops may be risk for ischemia and surgical assessment is advised. An indeterminant catheter or wire extends from the lower chest, traverses the heart and IVC, and terminates in the right iliac vein. There is associated right iliac vein deep venous thrombosis. No intraperitoneal free air is identified SBO has seemed to resolve, tolerating advanced diet, increased activity with PT eval and anticipate home in the next few days now on heart healthy low fiber diet. (2) Atrial fibrillation with RVR: Plan: converted to nsr, on amiodarone, given recent significant bleeding cardiology recommends no formal AC at this time and will re visit as outpt (3) Neck swelling: Plan: - Patient status post insertion of vena cava filter femoral approach removal of foreign body jugular approach 01/06, wire noted above on CT was removed 01/07 with increased neck swelling underlying right IJ access site, wound without dehiscence patient underwent hematoma evacuation and intubation for airway protection. (4) Primary cancer of ovary with widespread metastatic disease: Plan: Primary ovarian cancer, with metastasis CT as above The right ovary measures 2.8 x 0.8 x 1.2 cm and the left ovary measures 2.2 x 0.9 x 0.9 cm- from pelvic ultrasound in 10/02 Patient was working on surgical intervention for potential ovarian resection with oncology as outpatient. Given extensive adhesions and SBO, if she were to have abdominal surgery may benefit from a consolidated surgical approach. 01/06: Discussed with [place] [facility] [place] available indicating that her prior bowel resection showed adenoma of unknown primary, subsequent follow- up suspicious for ovarian primary and patient was pending additional outpatient work-up. Had recommended outpatient follow-up if SBO resolves, if SBO does not improve with medical treatment recontact and keep updated and may be appropriate for transfer at that time. continue medical management. Plan is for patient to [place] [facility] [place]. Daughter is arranging followup, Nurse navigator is also aware. (5) Deep vein thrombosis (DVT) of iliac vein of right lower extremity: Plan: - Noted to be on same side as incidentally found indeterminant wire -Heparin drip discontinued, vena cava filter in place Patient s/p removal of foreign body via jugular approach with insertion of vena cava filter femoral approach 01/06/2022, uncomplicated under fluoroscopic guidance. (6) DDD (degenerative disc disease), lumbosacral: Plan: Chronic pain with compression deformities of L2-L3-L4 Patient with morphine for breakthrough pain control with SBO as above Plan: DVT prophylaxis: SCDs Admission and Anticipated Discharge Date Admission Date: January 05, 2022 Subjective 66-year-old female admitted with bowel obstruction, had vascular procedure retrieval of guidewire performed several days ago complicated by hematoma requiring evacuation. She is doing well, tolerating regular diet. No bowel movement yet but passing a lot of flatus. neck wound is clean and dry after hematoma evacuation. Pt is eager to get up and get moving Review of Systems Review of Systems: Mild distress and fatigue no headache, no visual changes no speech or swallowing issues no chest pain, pressure or palpitations no shortness of breath, cough or wheezes no abdominal pain, nausea or vomiting no dysuria, hematuria or frequency no focal joint pain or swelling no back pain, CVA tenderness or radicular pain neck with minor pain and bruising no focal signs of weakness or numbness or altered sensation no complaints of anxiety or depression.. Physical Exam Physical Exam: The patient appeared well nourished and normally developed. Vital signs as documented. Head exam is normocephalic atraumatic Neck is with mild bruising and clean and dry stapled wound Lungs are diminished at bases, no focal loss of breath sounds Cardiac exam, Rhythm is regular.. No murmurs, rubs or gallops. Abdominal exam reveals normal bowel sounds, soft non tender, no masses Extremities are nonedematous and both pedal pulses are present Neurologic exam is alert and oriented, no focal loss of strength or sensation Psychologically is without concerns for anxiety or depression.. Results & Data Results & Data ([facility]) Vital Signs (Past 12 Hours) Vital Signs Temp Pulse Pulse Resp BP BP Pulse Ox 01/11/22 03:48 97.9 F 84 16 151/81 H 97 01/10/22 23:32 61 01/10/22 22:35 97.9 F 77 16 155/94 H 97 PG Care Time/CCT Total # of Minutes Spent Total Time Spent with Patient: Total time spent is greater than 50% in coordination of care (as documented) at patient's floor/unit and/or counseling patient: Coding Level of Care Code 54695 Subseq Hosp Care Lvl 2 Diagnoses Small bowel obstruction K56.609 Neck swelling R22.1 Primary cancer of ovary with widespread metastatic disease C56.9; C80.0 Deep vein thrombosis (DVT) of iliac vein of right lower extremity I82.421 DDD (degenerative disc disease), lumbosacral M51.37 Atrial fibrillation with RVR I48.91
[2022-01-11] MEDS: MAGNESIUM SULFATE / D5W 1 GM/100 ML BAG IV SCH ×2 (08:40→10:24)
[2022-01-11] MEDS: DOCUSATE SODIUM 100 MG CAP PO SCH ×2 (08:40→20:56)
[2022-01-11] MEDS: AMIODARONE 200 MG TAB PO SCH ×2 (08:40→17:23)
--- NOTE | 2022-01-11 10:43 | Cardiology Progress Note ---
Date of Service January 11, 2022 Assessment & Plan (1) Atrial fibrillation with RVR: Plan: -likely secondary to her critical illness and profound anemia. -converted to sinus rhythm on intravenous amiodarone. -now on amiodarone 200 mg b.i.d. -long-term anticoagulation seems risky realizing her malignancy and significant anemia. -decide on long-term anticoagulation as an outpatient. (2) Hypercholesterolemia: Plan: -resume rosuvastatin when able. Admission and Anticipated Discharge Date Admission Date: January 05, 2022 Subjective The patient is resting comfortably in bed without complaints of chest pain, dyspnea, or palpitations. Physical Exam Physical Exam: In general is well-developed well-nourished white male in no acute distress. HEENT exam is negative. Neck is supple with full carotid upstrokes. There are no carotid bruits. Well-healing scar noted in the right supraclavicular region. Diffuse ecchymoses across the neck. Cardiovascular exam reveals a regular rhythm with a normal S1 and S2. No obvious murmurs. Lungs are clear without rales, rhonchi or wheezes. Abdomen is soft without bruits. Extremities reveal intact radial artery pulses bilaterally. There is no peripheral edema. Results & Data ([facility]) Vital Signs (Past 12 Hours) Vital Signs Temp Pulse Pulse Resp BP BP Pulse Ox 01/11/22 07:48 36.5 C 89 16 148/70 H 95 01/11/22 07:00 80 01/11/22 03:48 36.6 C 84 16 151/81 H 97 01/10/22 23:32 61 Diagnostic Findings threat monitoring analyst notes sinus rhythm. No further episodes of atrial fibrillation. PG Care Time/CCT Total # of Minutes Spent Total Time Spent with Patient: Total time spent is greater than 50% in coordination of care (as documented) at patient's floor/unit and/or counseling patient: Coding Level of Care Code 68707 Subseq Hosp Care Lvl 3 Diagnoses Atrial fibrillation with RVR I48.91 Hypercholesterolemia E78.00
--- NOTE | 2022-01-11 12:36 | Surgery Progress Note ---
Date of Service January 11, 2022 Assessment & Plan (1) Small bowel obstruction: Plan: 66-year-old female with resolved small bowel obstruction. General surgery will sign off, call with questions or concerns Recommend low fiber diet good bowel regimen If recurrence of bowel obstruction may need surgery at a tertiary center given history of ovarian cancer versus primary peritoneal carcinomatosis Admission and Anticipated Discharge Date Admission Date: January 05, 2022 Subjective 66-year-old female admitted with bowel obstruction, had vascular procedure retrieval of guidewire performed several days ago complicated by hematoma requiring evacuation. She is doing well, tolerating regular diet. No bowel movement yet but passing a lot of flatus. Physical Exam Constitutional: WD/WN, vitals as above Gastrointestinal (Abdomen): normal bowel sounds, soft, nontender, no hepatosplenomegaly Inspection/Auscultation: + abdominal surgical scar (Healing well) Percussion/Palpation: + hernia (Reducible hernia) Results & Data ([facility]) Vital Signs (Past 12 Hours) Vital Signs Temp Pulse Pulse Resp BP BP Pulse Ox 01/11/22 11:19 36.6 C 81 16 122/74 98 01/11/22 07:48 36.5 C 89 16 148/70 H 95 01/11/22 07:00 80 01/11/22 03:48 36.6 C 84 16 151/81 H 97 PG Care Time/CCT Total # of Minutes Spent Total Time Spent with Patient: Total time spent is greater than 50% in coordination of care (as documented) at patient's floor/unit and/or counseling patient: Coding Level of Care Code 00316 Inpt Consult Level 2 Diagnoses Small bowel obstruction K56.609
[2022-01-12] MEDS: ACETAMINOPHEN 325 MG TAB PO PRN ×2 (01:46→18:40)
--- NOTE | 2022-01-12 08:06 | Operative Report ---
Post Operative Report Pre & Post Diagnosis Operation Date: 01/06/22 21:30 Pre-Op Diagnosis: Foreign body Post-Op Diagnosis: Foreign body Operation Date: 01/07/22 09:45 Pre-Op Diagnosis: Hematoma Right Neck Post-Op Diagnosis: Hematoma Right Neck I identified the patient and participated in the time-out.: Yes Procedure Operation Date: 01/06/22 21:30 Actual Procedures p Insertion of Vena Cava Filter Femoral approach, Removal of Foreign Body Jugular approach(Not Applicable) - Jamaal Cotter MD Operation Date: 01/07/22 09:45 Actual Procedures p Evacuation of Hematoma and Control of Bleeding Right Neck(Right) - Jamaal Cotter MD Surgeon Jamaal Cotter MD Hydraulics Teacher none Estimated Blood Loss 20 Findings Consistent with Post-Op Diagnosis Specimens none Anesthesia Type General Complications none Disposition Accompanied Patient To Recovery: No Disposition: Surgical ICU Indications Patient had removal of a foreign body from her venous system via a right internal jugular approach. She developed a hematoma of the right side of the neck overnight with significant edema. Exploration was recommended. I have discussed the risks options and benefits of the procedure with the patient. The patient understands the risks options and benefits and agrees to the procedure. Description of Procedure The patient was taken to the operating room and placed in the supine position. She was intubated with much difficulty by anesthesia. The right side of the n kellie was prepped and draped in the usual fashion. A timeout was performed and the patient identified. The incision was reopened and a moderate amount of serous drainage was expressed as well as a golf ball size hematoma. The venotomy site was dry with no bleeding. There were two areas of venous oozing from the soft tissue in the dissected area. This was controlled. There was no further bleeding seen. The wound was irrigated and then closed with 2-0 Vicryl for the platysma layer and kei for the skin. Sterile dressings were applied to the wound. The patient left the operation room in satisfactory condition and tolerated the procedure well. She was transported to the ICU intubated. All needle and sponge counts were correct at the end of the procedure. I attest to the content of the Intraoperative Record and any orders documented therein. Any exceptions are noted below.
[2022-01-12] MEDS: DOCUSATE SODIUM 100 MG CAP PO SCH ×2 (08:30→20:08)
[2022-01-12] MEDS: AMIODARONE 200 MG TAB PO SCH ×2 (08:30→16:31)
--- NOTE | 2022-01-12 09:40 | Cardiology Progress Note ---
Date of Service January 12, 2022 Assessment & Plan (1) Atrial fibrillation with RVR: Plan: -likely secondary to her critical illness and significantanemia. -converted to sinus rhythm on intravenous amiodarone. -tolerating oral amiodarone. -long-term anticoagulation seems risky realizing her malignancy and significant anemia. -decide on long-term anticoagulation as an outpatient. -I am happy to see her in our [place] office. (2) Hypercholesterolemia: Plan: -resume rosuvastatin when able. Admission and Anticipated Discharge Date Admission Date: January 05, 2022 Subjective The patient is resting comfortably at the bedside without complaints of chest pain, dyspnea, or palpitations. She is anxious for hospital discharge. Physical Exam Physical Exam: In general is well-developed well-nourished white male in no acute distress. HEENT exam is negative. Neck is supple with full carotid upstrokes. There are no carotid bruits. Well-healing scar noted in the right supraclavicular region. Diffuse ecchymoses across the neck. Cardiovascular exam reveals a regular rhythm with a normal S1 and S2. No obvious murmurs. Magaly gs are clear without rales, rhonchi or wheezes. Abdomen is soft without bruits. Extremities reveal intact radial artery pulses bilaterally. There is no peripheral edema. Results & Data ([facility]) Vital Signs (Past 12 Hours) Vital Signs Temp Pulse Pulse Resp BP Pulse Ox 01/12/22 08:20 36.7 C 76 18 151/88 H 97 01/12/22 07:29 66 01/12/22 02:53 36.6 C 66 18 122/60 95 01/11/22 22:56 36.7 C 104 H 18 163/93 H 99 Diagnostic Findings monitoring manager notes normal sinus rhythm. No evidence of atrial fibrillation. PG Care Time/CCT Total # of Minutes Spent Total Time Spent with Patient: Total time spent is greater than 50% in coordination of care (as documented) at patient's floor/unit and/or counseling patient: Coding Level of Care Code 24092 Subseq Hosp Care Lvl 3 Diagnoses Atrial fibrillation with RVR I48.91 Hypercholesterolemia E78.00
--- NOTE | 2022-01-12 14:15 | Hospitalist Progress Note ---
Date of Service January 12, 2022 Assessment & Plan (1) Small bowel obstruction: Plan: Resolved without surgery. Appreciate general surgery consultation. NG tube has been removed. Hospital course was complicated by a wire appreciated on CT scan which transversed SVC, IVC, and terminated in the right iliac vein is not present on imaging September 01. Only medical procedures since that time was a Mediport placement. She underwent uncomplicated removal of wire 12/17. Tolerating advanced diet. Increase activity with PT eval and anticipate home tomorrow, January 13 (2) Atrial fibrillation with RVR: Plan: converted to nsr. Now on amiodarone. Given recent significant bleeding, cardiology recommends no formal AC at this time and will re visit as outpt (3) Neck swelling: Plan: - Patient status post insertion of vena cava filter (femoral approach) and removal of IVC wire foreign body from jugular approach 01/06. Wire noted above on CT was removed 01/07 with increased neck swelling underlying right IJ access site, wound without dehiscence Patient subsequently underwent hematoma evacuation (4) Primary cancer of ovary with widespread metastatic disease: Plan: Primary ovarian cancer, with metastasis CT as above The right ovary measures 2.8 x 0.8 x 1.2 cm and the left ovary measures 2.2 x 0.9 x 0.9 cm- from pelvic ultrasound in 10/02 Patient was working on surgical intervention for potential ovarian resection with oncology as outpatient. Given extensive adhesions and SBO, if she were to have abdominal surgery may benefit from a consolidated surgical approach. 01/06: Discussed with on-call gynecology [facility]. Note available indicating that her prior bowel resection showed adenoma of unknown primary, subsequent follow- up suspicious for ovarian primary and patient was pending additional outpatient work-up. Had recommended outpatient follow-up if SBO resolves, if SBO does not improve with medical treatment recontact and keep updated and may be appropriate for transfer at that time. continue medical management. Plan is for patient to followup with [facility] at discharge. Daughter is arranging followup, Nurse navigator is also aware. (5) Deep vein thrombosis (DVT) of iliac vein of right lower extremity: Plan: - Noted to be on same side as incidentally found indeterminant wire -Heparin drip has been discontinued. Vena cava filter now in place Patient s/p removal of foreign body via jugular approach with insertion of vena cava filter femoral approach 01/06/2022, uncomplicated under fluoroscopic guidance. (6) DDD (degenerative disc disease), lumbosacral: Plan: Chronic pain with compression deformities of L2-L3-L4 Patient with morphine for breakthrough pain control with SBO as above Plan: DVT prophylaxis: SCDs Disposition: Probably home tomorrowJanuary 13 Admission and Anticipated Discharge Date Admission Date: January 05, 2022 Subjective Alert and oriented. No acute distress. MiraLAX ordered for constipation. OT and PT assessments requested. I suspect she will be able to go home tomorrow, January 13 Review of Systems Review of Systems: Constitutional-no fever or chills ENT-no blurred vision, no double vision, no epistaxis, no sore throat Respiratory-no cough, no wheezing, no shortness of breath Cardiac-no palpitations, no chest pain, no syncope GI-no nausea, vomiting, diarrhea, melena, hematochezia -no urinary retention, no urinary incontinence, no dysuria, no hematuria Musculoskeletal-no joint pain, no muscle tenderness Skin-no bruising, no rashes, no pruritus Neuro-no isolated weakness, no paresthesia, no weakness Psych-no depression, no anxiety Physical Exam Physical Exam: General-alert and oriented x3, no fevers, no chills HEENT-head atraumatic and normocephalic, TMs intact bilaterally, pupils equal and reactive to light, extraocular muscles intact Neck-no lymphadenopathy or thyromegaly, trachea midline Chest-clear to auscultation percussion. No rales wheezing or rhonchi Cardiac-regular rate and rhythm, normal S1 and S2, no murmurs Abdomen-normal bowel sounds, nontender, no hepatosplenomegaly Extremities-no cyanosis, clubbing, or edema Neuro-cranial nerves II through XII intact, motor and sensory function within normal limits, strength symmetrical 5/5, no focal deficits Psych-normal affect, normal mood Results & Data Results & Data ([facility]) Vital Signs (Past 12 Hours) Vital Signs Temp Pulse Pulse Resp BP Pulse Ox 01/12/22 12:04 36.7 C 89 18 136/79 98 01/12/22 08:20 36.7 C 76 18 151/88 H 97 01/12/22 07:29 66 01/12/22 02:53 36.6 C 66 18 122/60 95 Laboratory Results 01/11/22 04:54 03/02/22 04:54 PG Care Time/CCT Total # of Minutes Spent Total Time Spent with Patient: Total time spent is greater than 50% in coordination of care (as documented) at patient's floor/unit and/or counseling patient: Coding Level of Care Code 20505 Subseq Hosp Care Lvl 3 Diagnoses Small bowel obstruction K56.609 Atrial fibrillation with RVR I48.91 Neck swelling R22.1 Primary cancer of ovary with widespread metastatic disease C56.9; C80.0 Deep vein thrombosis (DVT) of iliac vein of right lower extremity I82.421 DDD (degenerative disc disease), lumbosacral M51.37
[2022-01-12] MEDS: POLYETHYLENE (MIRALAX) 17 GM PACK PO SCH (14:56)
[2022-01-12] MEDS: hydrOXYzine HCl 25 MG TAB PO PRN (21:45)
[2022-01-13 06:00] LABS: Basophils # (auto) 0.01 K/uL (0-0.2); Basophils % (auto) 0.1 %; Eosinophils # (auto) 0.14 K/uL (0-0.5); Eosinophils % (auto) 1.9 %; Hematocrit (blood only) 29.2 % (37-47); Hemoglobin 9.6 g/dL (12.0-16.0); Immature Granulocytes # (auto) 0.01 K/uL (0.00-0.02); Immature Granulocytes % (auto) 0.1 %; Lymphocytes # (auto) 1.79 K/uL (1.2-3.4); Lymphocytes % (auto) 24.9 %; Mean Corpuscular Hemoglobin 33.3 pg (25-34); Mean Corpuscular Hgb Conc 32.9 g/dL (32-36); Mean Corpuscular Volume 101.4 fL (80-100); Mean Platelet Volume 9.8 fL (7.4-10.4); Monocytes # (auto) 0.72 K/uL (0.11-0.59); Neutrophils # (auto) 4.52 K/uL (1.4-6.5); Platelet Count 162 K/uL (130-400); RDW Standard Deviation 57.9 fL (36.4-46.3); Red Blood Count 2.88 M/uL (4.2-5.4); White Blood Count 7.19 K/uL (4.8-10.8)
[2022-01-13 06:24] LABS: BUN Creatinine Ratio 21.5 (10-20); Calcium 7.9 mg/dl (8.5-10.1); Creatinine Clr Calc Pharmacy 84.8 ml/min; Est GFR (Non-African American) 93.2 ml/min; Potassium 3.9 mmol/L (3.5-5.1)
[2022-01-13] MEDS: AMIODARONE 200 MG TAB PO SCH (09:02)
[2022-01-13] MEDS: DOCUSATE SODIUM 100 MG CAP PO SCH (09:02)
[2022-01-13] MEDS: POLYETHYLENE (MIRALAX) 17 GM PACK PO SCH (09:02)
[2022-01-13] MEDS ORDERED: HEPARIN 100 UNIT/ML 5ML FLUSH ONE (14:06)
--- NOTE | 2022-01-13 16:03 | Discharge Summary ---
Date of Service January 13, 2022 Admission HPI Per Admitting Provider 66 YOF with past medical history of: hypothymism, HLD, Ovarian cancer primary with metastatic disease to the stomach, treated with abdominal tumor resection with bowel removal and reanastomosis. Her path results from this surgery was reported as complicated and the patient went to [facility] for interpretation and diagnosis. She had a Medi-port placed in October 02 and started her Chemotherapy regime at [facility] with Dr. Ag thayer. Her clinical course post surgery has been complicated with what appears as a ventral hernia. She comes in today for acute onset of abdominal pain this morning followed by nausea and vomiting. She was diagnosed with a high grade small bowel obstruction possibly caused by adhesions. She had a surgical consult completed- as not an emergent need for surgery at this time, they placed NG tube to LIWS and if surgery was needed related to her complexity and oncological history transfer to tertiary care center. I have consulted surgical oncology at [facility]. Her case will be discussed and plan developed. She will be kept on transfer list and call us back with update. If she were to worsen acutely also call back for transfer. Her original Oncologist is no longer at [facility]. She was also noted to have indeterminant wire in her IJ to her right illiac vein and associated with Right iliac vein DVT noted on CT scan that was done with IV contrast. The patient also is noted on her CXR and CT scan of her abdomen and pelvis to have an indeterminant wire from her IJ that traverses her IVC, heart and SVC terminating in her right iliac vein. The patient is unsure what this may be from as she can not recall any recent procedures. She had her Mediport placed in September at [facility] has requested operative reports from this. She had a PET scan performed in and this object is not revealed on that imaging. Principal Diagnosis Small bowel obstruction Atrial fibrillation Indwelling foreign body Right iliac DVT Discharge Exam General: A&Ox3. NAD. Cooperative. HEENT: Atraumatic, normocephalic. See skin below Skin: Right inferior neck with well-healing surgical incision, kei in place, no dehiscence/bleeding/discharge. Minimal swelling, vastly improved from prior. Right groin incision intact/C/D/I. Pulm: CTAB A&P. -wheezes, -rales, -rhonchi. Symmetrical chest rise. No increase in work of breathing. No respiratory distress. Cardiac: RRR, -mrg. Radial pulses intact and symmetrical. Abdominal: Usable ventral hernia, soft, nontender Discharge Data Allergies Allergy/AdvReac Type Severity Reaction Status Date / Time codeine AdvReac Unknown Unknown Verified 01/05/22 15:51 ibuprofen AdvReac Unknown Unknown Verified 01/05/22 15:51 Consultations 01/05/22 17:21 Consult General Surgery Stat ED Decision to Admit Stat 01/05/22 23:32 Consult General Surgery Routine Consult General Surgery Routine Consult Vascular Surgery Routine 01/07/22 12:13 Consult Geography Instructor Routine 01/09/22 09:36 Consult Cardiology Routine Procedures Performed Operation Date: 01/06/22 21:30 Actual Procedures p Insertion of Vena Cava Filter Femoral approach, Removal of Foreign Body Jugular approach(Not Applicable) - Jamaal Cotter MD Operation Date: 01/07/22 09:45 Actual Procedures p Evacuation of Hematoma and Control of Bleeding Right Neck(Right) - Jamaal Cotter MD Ordered Studies 01/05/22 14:58 CT abd pelvis IV con only Stat 01/06/22 11:23 EV IVC filter placement Routine Hospital Course (1) Small bowel obstruction: Yesi is a 66-year-old female who presented with a small bowel obstruction and who on evaluation was found to have a foreign body observed extending from the IVC to the right iliac vein suspicious for a retained wire, and whose hospital course was complicated by neck swelling following placement of a IVC filter and foreign body removal requiring temporary intubation for airway protection. Patient did recover well, was discharged to outpatient follow-up. To do as outpatient: 1. Continue amiodarone 200 mg by mouth twice daily 2. Follow-up to cardiology 3. Routine follow-up to PCP 4. Follow-up with [facility] gynecology for primary ovarian cancer with metastasis 5. Follow-up with vascular surgery for surgical incision reevaluation and staple removal. Patient with IVC in place at discharge. 6. Follow-up of right DVT of iliac vein. Not on anticoagulation due to bleeding risk, see below, IVC filter in place as above Small bowel obstruction - CT: 1. Findings are consistent with a high-grade small bowel obstruction. There is a cluster of thick-walled, twisted appearing, and tethered bowel loops in the ventral lower abdomen and this is likely on the basis of adhesions. 2. There are focally thick walled bowel loops at the site of obstruction with mesenteric edema and interloop fluid. No pneumatosis intestinalis or portal venous gas is seen. These loops may be risk for ischemia and surgical assessment is advised. 3. An indeterminant catheter or wire extends from the lower chest, traverses the heart and IVC, and terminates in the right iliac vein. There is associated right iliac vein deep venous thrombosis. 4. No intraperitoneal free air is identified. Initially was concerning for complex abdomen with a past history of abdominal interventions and cancer, given that she had a remaining ovarian mass her case was discussed with [facility] as if she were to have surgical intervention for SBO may have been of benefit to also coordinate with surgeons at their facility for m anagement of her primary ovarian cancer. Ultimately this was not required, and her bowel obstruction resolved without surgery. Appreciate general surgery consultation. NG tube was placed and subsequently has been removed. Hospital course was complicated by a wire appreciated on CT scan which transversed SVC, IVC, and terminated in the right iliac vein is not present on imaging September 01. Only medical procedures since that time was a Mediport placement. She underwent uncomplicated removal of wire 12/17. Tolerating advanced diet. Tolerated PT well, was discharged home tolerating a normal diet (2) Atrial fibrillation with RVR: Patient experienced A. fib with RVR, likely provoked by acute illness and stress of both small bowel obstruction and surgery. She did convert to normal sinus rhythm. Is maintained on amiodarone. Given recent significant bleeding, cardiology recommends no formal AC at this time and will re visit as outpt. Patient was also on aspirin for primary prevention without history of coronary disease or stroke. Aspirin was temporarily held to be restarted as outpatient given her very high risk of bleeding and complications. Patient following up with PCP and cardiology as outpatient. (3) Neck swelling: - Patient status post insertion of vena cava filter (femoral approach) and removal of IVC wire foreign body from jugular approach 01/06. Wire noted above on CT was removed 01/07 with increased neck swelling underlying right IJ access site, wound without dehiscence Patient subsequently underwent hematoma evacuation, required intubation for airway protection, subsequently was extubated and was doing well and breathing normally at time of discharge. (4) Primary cancer of ovary with widespread metastatic disease: Primary ovarian cancer, with metastasis CT as above The right ovary measures 2.8 x 0.8 x 1.2 cm and the left ovary measures 2.2 x 0.9 x 0.9 cm- from pelvic ultrasound in 10/02 Patient was working on surgical intervention for potential ovarian resection with oncology as outpatient. Given extensive adhesions and SBO, if she were to have abdominal surgery may benefit from a consolidated surgical approach. 01/06: Discussed with on-call gynecology [facility]. Note available indicating that her prior bowel resection showed adenoma of unknown primary, subsequent follow- up suspicious for ovarian primary and patient was pending additional outpatient work-up. Had recommended outpatient follow-up if SBO resolves, if SBO does not improve with medical treatment recontact and keep updated and may be appropriate for transfer at that time. continue medical management. Plan is for patient to followup with [facility] at discharge. Daughter is arranging followup, Nurse navigator is also aware. (5) Deep vein thrombosis (DVT) of iliac vein of right lower extremity: - Noted to be on same side as incidentally found indeterminant wire -Initially heparinized, Heparin drip has been discontinued following hematoma development and with IVC filter now in place. Anticoagulation not recommended due to patient's high bleeding risk. Patient s/p removal of foreign body via jugular approach with insertion of vena cava filter femoral approach 01/06/2022, uncomplicated under fluoroscopic guidance. (6) DDD (degenerative disc disease), lumbosacral: Chronic pain with compression deformities of L2-L3-L4 Patient with morphine for breakthrough pain control with SBO as above DVT prophylaxis: SCDs Total Time Total Time Spent Total Time Spent (In Minutes): Time spend day of discharge sixty minutes including direct patient care, documentation, review of labs and images, and coordination of care. Discharge Plan Discharge Items Patient Disposition: Home - Self-Care Reason For Visit: SBO/OVARIAN CANCER Discharge Diagnosis: Small bowel obstruction Ovarian cancer Activity: Resume your previous activity Non-emergency contact: Primary Care Provider, Specialist and Oncologist Call non-emergency contact if: you have any medication questions, your symptoms worsen, your pain is not controlled, your pain is worsening and your pain is unusual for you Follow-up/Referrals: Murali Potter MD [Physician] - Ramírez Alexander [Primary Care Provider] - 01/19/22 3:00 pm (Please follow up with Dr. Alexander on 01/19/22 at 3:00 pm. Please arrive to the office at 2:45 pm for your appointment. If you are unable to keep this appointment, please call the office to reschedule at [phone].) Jamaal Cotter MD [Physician] - Diet: Low Fiber Addtl Attending Provider Instructions: You were seen in the hospital for small bowel obstruction. Her hospital course was complicated by removal of a indwelling wire from your inferior vena cava, atrial fibrillation, and hematoma of the neck requiring temporary intubation for airway protection. Your small bowel obstruction improved with medical therapy and did not require surgery. The indwelling wire was removed by vascular surgery and a inferior vena cava filter was placed to protect you from blood cl ots. This removal was complicated by hematoma formation, hematoma was evacuated and you were temporarily intubated for airway protection. You clinically improved and were able to be extubated and progressed well. You are being discharged with additional follow-up appointments as below. You experience atrial fibrillation during admission. Cardiology was consulted. Due to your bleeding risk it was recommended that you not to be on anticoagulation or aspirin at this time, and your A. fib was also likely provoked by acute illness. You have been prescribed a medication, amiodarone. Please continue taking amiodarone 200 mg by mouth twice daily. A follow-up appointment is being scheduled for you with cardiology as above, they will make further recommendations regarding medication adjustments at that appointment. You are seen by vascular surgery for wire removal as noted above. A follow-up appointment is being scheduled for you, you should be seen within approximately 2 weeks for staple removal and wound check. If you do not receive a call to confirm your appointment within 48 hours, please contact their office at the number above. If you experience any worsening wound swelling, pain, redness/erythema, discharge, or other new or concerning symptoms please contact their office directly or call 911 to present to the emergency department for reevaluation. You have a history of ovarian cancer, this was discussed with [facility] during admission. If you were to have a bowel surgery for your obstruction it was recommended that you be seen where surgical CHIEF SOLUTION ARCHITECT specialist were also available; however, surgical intervention was not required and outpatient follow-up with [place] is appropriate. Please keep your follow-up appointments with them as discussed. If you develop any new or worsening symptoms including fever, chills, sweats, chest pain, chest pressure, difficulty breathing, uncontrolled nausea/vomiting, rash, wheezing, passing out or nearly passing out, bleeding, black/bloody bowel movements, or other new or concerning symptoms please call your primary care physician, or call 911 for re-evaluation in the emergency department if you are very concerned. Pending Studies at Discharge: No Stand-Alone Forms: My [facility] [employer] (T/A), Smoking Cessation Medications and DC Order Prescriptions: New amiodarone 200 mg Tablet 200 mg PO BIDM 30 Days Qty: 60 RF: 0 Continued (DME) Walking Cane Misc See Rx Instructions .ROUTE .MEDSUPPLY Qty: 1 RF: 0 sennosides-docusate sodium [Senokot-S] 8.6-50 mg Tablet See Rx Instructions .ROUTE .COMPLEX RF: 0 tramadol 50 mg tablet 50 mg PO Q8H PRN (Reason: Pain) RF: 0 levothyroxine 100 mcg tablet 100 mcg PO DAILY RF: 0 rosuvastatin 10 mg tablet 10 mg PO HS RF: 0 cholecalciferol (vitamin D3) [Vitamin D3] 50 mcg (2,000 unit) Capsule 50 mcg PO DAILY RF: 0 Discontinued aspirin 81 mg Tablet,Delayed Release (Dr/Ec) 81 mg PO DAILY RF: 0 Discharge Orders: Discharge Order (Routine); Ordered 01/13/22 Ordered By: Saul Kwok Admission Data Admit Date/Time: 01/05/22 20:26 Attending Provider: Saul Kwok Admit Provider: Micheal Cespedes Primary Care Provider: Ramírez Alexander Other Providers: See Araujo ; Micheal Cespedes ; Jamaal Cotter ; Sarath Guerra ; Jason Mcdowell Seth D. ; Antonio Luis ; Andrés León ; Thien Steve ; Alexandria Hutchins ; Daron Dominguez ; Brody Goodrich ; Ryley Luke ; Murali Potter ; Sharan Carter ; Wayne Ware Jr ; Robles Combs ; Meli Zamarripa ; Benita Ernandez ; Pavel Contreras ; Serafin Dill ; Rajinder Magana ; Lauryn Hand ; Madie Emery ; Arnel Morrell ; Fabián Coleman ; Glen Trammell Other Interventions: Discharge Summary Assessment (RN) Last Done: 01/13/22 13:42 Coding Level of Care Code D/C DAY MANAGEMENT >30 MINS Diagnoses Small bowel obstruction K56.609 Atrial fibrillation with RVR I48.91 Neck swelling R22.1 Primary cancer of ovary with widespread metastatic disease C56.9; C80.0 Deep vein thrombosis (DVT) of iliac vein of right lower extremity I82.421 DDD (degenerative disc disease), lumbosacral M51.37
--- NOTE | 2022-01-21 10:26 | Coding Query ---
ANEMIA To promote full compliance with coding requirements relating to patient care, physician participation is requested in all cases of power transformer inspector uncertainty. Please assist us with the question(s) below: Coding Question(s): The record reflects the following clinical findings: Documentation of profound anemia on 01/10/22 If these findings are indicative of anemia, please specify the known or suspected type by placing an "X" within the parenthesis (x). If other, please document type. Examples are: ( ) Acute blood loss anemia ( ) Acute Postoperative blood loss anemia ( ) Acute postoperative anemia due to dilutional fluids ( ) Chronic blood loss anemia (x ) Anemia of chronic disease ( ) Aplastic anemia ( ) Anemia due to renal disease ( ) Anemia in neoplastic disease ( ) Iron deficient anemia ( ) Anemia, unspecified or other ( ) Other: (please specify) ( ) Unable to determine Thank you Beryl BEVERLY
== END 2022-01-13 14:19 | disposition home or self-care (01) | DRG 982 ==
LOC: ED 13:35 → EDINP 20:26 → SUATTDRO 20:26 → 2S 23:30 → 1E 01-07 11:56 → 2S 01-11 15:17

== ENCOUNTER 2023-02-20 11:53 | Inpatient (IN) ==
[2023-02-20] MEDS ORDERED: SODIUM CHLORIDE 0.9% 500 ML IV ONE (12:21)
--- NOTE | 2023-02-20 13:14 | XRay Report ---
XR chest 1V portable HISTORY: 67 years-old Female Chest pain, nonspecific acute chest pain COMPARISON: Chest radiograph 01/09/2022 TECHNIQUE: AP view of the chest FINDINGS: Cardiomediastinal and hilar silhouettes are within normal limits. Atherosclerosis of the aorta. Right IJ Capltp-b-Iepw catheter is unchanged. Mild chronic interstitial coarsening. No pneumothorax, pleur al effusion, airspace consolidation or pulmonary edema. Bones appear grossly intact. IMPRESSION: No acute process. ACT 112: Negative or not required by law. The above report was generated using voice recognition software. It may contain grammatical, syntax o r spelling errors. Electronically signed by: Mauro Marlow M.D. 02/20/2023 1:12 PM
[2023-02-20] MEDS ORDERED: ACETAMINOPHEN 1,000 MG/100 ML VIAL IV STA (13:23)
[2023-02-20] MEDS ORDERED: MoRPHine SULFATE 4 MG/ML 1 ML CARP\\VIAL IV STA (13:23)
[2023-02-20] MEDS ORDERED: FAMOTIDINE 20MG IV PUSH 20 MG/5 ML SYR IV STA (13:24)
[2023-02-20 13:33] LABS: Basophils # (auto) 0.04 K/uL (0-0.2); Basophils % (auto) 0.8 %; Eosinophils # (auto) 0.13 K/uL (0-0.50); Eosinophils % (auto) 2.4 %; Hematocrit (blood only) 38.5 % (37.0-47.0); Hemoglobin 13.1 g/dl (12.0-16.0); Immature Granulocytes # (auto) 0.01 K/uL (0.01-0.20); Immature Granulocytes % (auto) 0.2 %; Lymphocytes # (auto) 0.98 K/uL (1.2-3.4); Lymphocytes % (auto) 18.4 %; Mean Corpuscular Hemoglobin 33.3 pg (25.0-34.0); Mean Platelet Volume 9.7 fL (9.4-12.4); Monocytes % (auto) 11.3 %; Neutrophils # (auto) 3.56 K/uL (1.40-6.50); Neutrophils % (auto) 66.9 %; Platelet Count 227 K/uL (130-400); RDW Coefficient of Variation 13.4 % (11.5-14.5); RDW Standard Deviation 48.9 fL (36.4-46.3); Red Blood Count 3.93 M/uL (4.20-5.40); White Blood Count 5.32 K/ul (4.8-10.8)
[2023-02-20 13:36] LABS: Albumin Globulin Ratio 1.6 (0.9-2); Albumin Level 4.2 gm/dl (3.4-5.0); BUN Creatinine Ratio 11.3 (10-20); Bilirubin,Total 0.5 mg/dl (0.2-1.0); Calcium 9.3 mg/dl (8.6-10.3); Creatinine Clr Calc Pharmacy 59.6 ml/min; Est GFR (African American) 63.4 ml/min; Est GFR (Non-African American) 54.7 ml/min; Globulin 2.6 gm/dl (2.5-4.0); Magnesium 1.7 mg/dl (1.7-2.4); Potassium 3.9 mmol/L (3.5-5.1); Total Protein 6.8 gm/dl (6.0-8.3)
[2023-02-20 13:41] LABS: Troponin I High Sensitivity 3.5 pg/ml (0-14)
[2023-02-20 13:45] LABS: Prothrombin Time 11.1 Seconds (9.0-12.0)
[2023-02-20] MEDS ORDERED: OPTIRAY 320 500ml IV ONE (14:12)
--- NOTE | 2023-02-20 14:38 | CT Scan Report ---
CT SCAN OF THE ABDOMEN AND PELVIS WITH IV CONTRAST CLINICAL HISTORY: Atypical chest pain. Generalized abdominal pain. Low back pain. COMPARISON STUDY: Abdominal CT dated 02/24/2022. TECHNIQUE: Following the IV administration of 113 cc of Optiray 320, CT scan of the abdomen and pelv is is performed from the lung bases to the proximal femora. Images are reviewed in the axial, sagitta l, and coronal planes. IV contrast was administered without complication. A dose lowering technique w as utilized adhering to the principles of ALARA. CT DOSE: 1214.84 mGy.cm FINDINGS: Lung bases: The tip of a central venous infusion port terminates in the right ventricle. The heart is normal in size and without pericardial effusion. There is a trace right pleural effusion and depende nt atelectasis. No airspace consolidation is identified. A small hiatal hernia is noted. Liver: The contrast-enhanced liver is normal in size, contour, and attenuation. There is no intrahepa tic biliary ductal dilatation. The hepatic veins and portal veins are patent. Gallbladder: Unremarkable. Spleen: Normal in size and attenuation. Pancreas: Moderately atrophic and grossly unremarkable. Adrenal glands: Unremarkable. Kidneys: The contrast enhanced kidneys demonstrate mild cortical atrophy and are without hydronephros is. The kidneys enhance symmetrically. Foci of cortical scarring are seen in both kidneys. Left upper pole renal cysts measure up to 1.8 cm. Abdominal vasculature: The abdominal aorta is normal in course and caliber noting moderate to advance d atherosclerotic calcification. The right iliac vein is diminutive and not well visualized. Bowel: A small bowel anastomosis is noted in the left lower quadrant. No bowel obstruction is seen. T here is mild colonic fecal retention. Scattered colonic diverticula are noted without CT evidence of acute diverticulitis. The appendix is not identified and reported surgically absent. Peritoneum: There is no intraperitoneal free air or abdominal ascites. A midline surgical scar is not ed with evidence of interval ventral hernia repair. There is a fat-containing supraumbilical hernia. Lymphadenopathy: None. Pelvic viscera: The bladder is distended but otherwise normal in appearance. The uterus is surgically absent. There is an indeterminant 1.8 cm hyperdense structure with a hypodense center posterior to t he lateral left which is new from previous. This is best seen on image #270. Skeletal structures: The skeletal structures are osteopenic. There is an acute to subacute compressio n fracture of L1 with mild loss of height. Fracture involves both the superior and inferior endplate as well as the anterior cortex. There is no involvement of the posterior cortex or posterior elements . No retropulsed fragments are identified. Paravertebral edema is noted at this level. There is an ac pilot station appearing right transverse process fracture of L2. There are chronic superior endplate compressio n deformity is of L2 and L3. No lytic or blastic lesions are seen. Chronic deformity and postsurgical changes noted in the right proximal femur. There is chronic deformity of the right sacral ala and th e right pubic rami. IMPRESSION: 1. There is an acute to subacute appearing compression fracture of L1 with mild loss of height as det akil above. No significant retropulsion of fragments are seen. 2. There is an acute subacute appearing right transverse process fracture of L2. 3. Additional chronic fractures as above. 4. Bladder distention. 5. There is an indeterminant 1.8 cm ovoid hyperdense structure with central hypodensity seen in the l eft pelvis posterior to the bladder. This is new from previous and may be on a postsurgical basis. At tention at follow-up is recommended. 6. Trace right pleural effusion. 7. Additional findings as above. ACT 112: Negative or not required by law. Electronically signed by: Sarath Roy M.D. 02/20/2023 2:37 PM
--- NOTE | 2023-02-20 14:44 | CT Scan Report ---
CT angio chest PE protocol HISTORY: 67 years-old Female with chest/back/abd pain, h/o ovarian cancer, r/o PE. Acute shortness of breath and chest pain TECHNIQUE: Multiple CTA images of the chest were obtained after the intravenous administration of 113 ml Optiray. Coronal and sagittal MIPS were obtained from the axial data set and were submitted for review. All measurements were obtained according to NASCET criteria. A dose lowering technique was u tilized adhering to the principles of ALARA. COMPARISON: CT abdomen and pelvis of same day, chest CT 02/24/2022 FINDINGS: CTA: The heart is normal in size without pericardial effusion. Moderate coronary artery calcifications. At herosclerosis of the thoracic aorta without aneurysm. CT of the imaged great vessels. Right IJ Infuse -a-Port catheter terminates in the right atrium. No pulmonary emboli are identified. CT CHEST: No thyroid nodule or lymphadenopathy. No pneumothorax, pleural effusion or overt pulmonary edema. Mil d pulmonary emphysema with bronchial wall thickening. Subsegmental bibasilar atelectasis. There are n o suspicious pulmonary nodules or masses identified. Cortical scarring with parenchymal thinning of the kidneys. Renal cysts are present. Subcentimeter ca lcifications of the superior pole right kidney. Unremarkable soft tissues. Demineralized appearance o f the bones with multilevel degenerative changes of the spine severe intervertebral disc space narrow ing at T6-T7 redemonstrated. 50% mid vertebral body compression deformity at T8 without significant r etropulsion is new from prior. 30% central compression deformity at L1 without retropulsion is new fr om prior. Heterogeneous sclerosis of this vertebral body is also noted with mild paravertebral edema. . Chronic L2 superior endplate compression deformity. IMPRESSION: 1. Acute to subacute appearing L1 compression deformity with mild paravertebral edema and no signific ant retropulsion. Sclerosis of this vertebral body is likely secondary to the fracture. A pathologic fracture considered less likely. 2. T8 compression deformity without significant retropulsion is also likely acute or subacute. 3. No pulmonary emboli identified. 4. No lymphadenopathy or evidence of thoracic metastatic disease. 5. Mild pulmonary emphysema. ACT 112: Negative or not required by law. The above report was generated using voice recognition software. It may contain grammatical, syntax o r spelling errors. Electronically signed by: Mauro Marlow M.D. 02/20/2023 2:43 PM
--- NOTE | 2023-02-20 15:01 | Emergency Department Note ---
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 She reports sense of shortness of breath due to feeling pain when breathing of her chest and back. She denies any falls or particular movements which triggered her symptoms. She reports that her metastatic cancer has been treated in understands she has been in remission. She denies any recent fevers, chills, cough, congestion, GI or symptoms. Denies any loss of bowel control or urinary retention. On arrival the patient is uncomfortable but no acute distress, afebrile blood pressure in the 150s/80s in setting of her discomfort and vital signs otherwise stable. O2 saturations 99% on room air. She has tenderness of the lower thoracic and upper lumbar paraspinal muscles bilaterally without midline tenderness palpation or step-offs. She has normal strength in bilateral lower extremities. EKG without overt acute ischemia. CXR negative for acute cardiopulmonary process. WBC, H/H and platelets within normal limits. Chemistry without metabolic acidosis. Electrolytes LFTs unremarkable. High-sensitivity troponin 3.5, within normal limits. Lipase not elevated. TSH is elevated at 15 however free T4 within normal limits. COVID-19 RNA, FRANCIS test was negative. CTA of the chest abdomen pelvis were performed. Findings note acute to subacute compression fracture of L1 with mild loss of height and acute to subacute appearing right transverse process fracture of L2 as well as acute to subacute compression fracture of T8 with no evidence of significant retropulsion. Case was discussed with orthopedic spine surgery, Dr. Mccurdy. Appreciate recommendations for MRI with contrast to further evaluate whether fractures could be pathologic in origin given patient's cancer history. The patient did feel some improvement following initial treatment with IV APAP and morphine though still with substantial pain. Patient does agree with plan for admission for continue pain control. Case was d/w Dr. Cespedes, [facility] hospitalist who will evaluate the patient for admission. Triage Nursing notes reviewed and agree them. Prior/outside medical records reviewed Vital Signs: reviewed Differential diagnosis: Musculoskeletal, disc herniation, fracture, metastatic disease, cord compression, discitis, sciatica, cauda equina, infection, aortic disease, renal colic, gastrointestinal, as well as other pathologies. ER treatment provided: See below. Diagnostics interpreted by me: ECG: Normal sinus rhythm, 72 bpm, no ectopy, no overt ST elevation or depression, QTc 440, QRS 82. Cardiac Monitoring: An order for continuous cardiac monitoring was placed and demonstrated Normal sinus rhythm, 72 bpm, no ectopy. Laboratory studies: See below Imaging studies: See below Consultation(s): Dr. Mccurdy, orthopedic spine Dr. Cespedes, [facility] hospitalist HPI: The patient is a pleasant 67-year-old woman with a past medical history of primary cancer of the ovary with metastatic disease, paroxysmal atrial fibrillation, history of DVT and PE on Eliquis who presents to the emergency department via private vehicle accompanied by her for evaluation of ongoing chest and back pain for the past week that is becoming more severe but she did not seek medical care because she wanted to make it through [facility]. She reports sense of shortness of breath due to feeling pain when breathing of her chest and back. She denies any falls or particular movements which triggered her symptoms. She reports that her metastatic cancer has been treated in understands she has been in remission. She denies any recent fevers, chills, co ugh, congestion, GI or symptoms. Denies any loss of bowel control or urinary retention. ROS: See above HPI for pertinent positives & negatives. A total of 10 systems reviewed and were otherwise negative. VITALS:See Below PHYSICAL EXAMINATION: GENERAL: Awake, alert, uncomfortable-appearing, in no distress, BMI 26.8. HENT: Normocephalic, atraumatic. Oropharynx with dry mucous membranes and otherwise unremarkable. EYES: Normal conjunctiva. Sclera non-icteric. NECK: Supple. No nuchal rigidity. FROM. No JVD. RESPIRATORY: Clear to auscultation. CARDIAC: Regular rate, normal rhythm. Extremities warm and well perfused. Pulses equal. ABDOMEN: Soft, non-distended. No tenderness to palpation. No rebound or guarding. No masses. RECTAL: Deferred. MUSCULOSKELETAL: Chest examination reveals no tenderness. Tenderness of the lower thoracic and upper lumbar paraspinal muscles bilaterally without midline tenderness palpation or step-offs. LOWER EXTREMITIES: Calves are equal size bilaterally and non-tender. No edema. No discoloration. NEURO: No sensory or motor deficits noted. 5/5 strength and SILT x 4 extremities. DTRs wnl. No clonus. SKIN: No rash or jaundice noted. Demario Fleming MD Past Med/Surg History Medical History Atrial fibrillation with RVR Critical airway Deep vein thrombosis (DVT) of iliac vein of right lower extremity Encounter for pre-operative examination Foreign body accidentally left during a procedure Fracture of pubic ramus Hematoma of neck Hypercholesteremia Neck swelling Paroxysmal atrial fibrillation Primary cancer of ovary with widespread metastatic disease Small bowel obstruction Surgical History History of abdominal surgery History of bowel resection History of total right hip arthroplasty Social History Smoking Status: Former smoker Tobacco Type: E-cigarettes / Vaping Second Hand Exposure: Yes; Hx Alcohol Use: Yes Alcohol type: beer Hx Substance Use: No Preferred Language: Georgian Communication Ability: Effective Criminal Justice Lawyer Required: No Beliefs That Will Affect Care: None Current Living Situation: Spouse Other Information That Helps Us Care for You: No Feels Safe at Home: Yes Safety Concerns: Feels Safe At This Time Assistive Devices: Denture - Upper and Glasses Allergies Allergies Allergy/AdvReac Type Severity Reaction Status Date / Time ibuprofen Allergy Severe Anaphylaxis Verified 02/20/23 14:39 codeine Allergy Intermediate Rash Verified 02/20/23 14:39 Home Meds Home Medications Medication Instructions Recorded Confirmed sennosides 8.6 mg-docusate sodium 1 tab PO HS 01/05/22 02/20/23 50 mg tablet (Senokot-S) tramadol 50 mg tablet 50 mg PO Q8H PRN Pain 01/05/22 02/20/23 levothyroxine 175 mcg tablet 175 mcg PO QAM 02/20/23 02/20/23 Previous Rx's Medication Instructions Recorded Walking Cane #1 ea 06/22/20 amiodarone 200 mg tablet 200 mg PO DAILY 90 days #90 tabs 04/20/22 apixaban 5 mg tablet (Eliquis) 5 mg PO BID #180 tabs 04/20/22 rosuvastatin 10 mg tablet 10 mg PO HS #90 tabs 04/20/22 Results & Data (ED) Vital Signs Vital Signs - 24 hr 02/20/23 12:04 02/20/23 12:21 02/20/23 12:25 Temperature 36.5 C Temperature Source Temporal Artery Scan Pulse Rate 71 66 Pulse Rate from SpO2 Sensor Respiratory Rate 19 Blood Pressure 157/86 H Blood Pressure Mean 109 Pulse Oximetry 99 Oxygen Delivery Method Room Air Room Air Sepsis Recent Fever Within 48 Hours No Sepsis New/Unexplained Change in Mental Status N/A Sepsis Action Taken by Nursing No Action Required 02/20/23 12:24 02/20/23 12:30 02/20/23 13:00 Temperature Temperature Source Pulse Rate 63 65 65 Pulse Rate from SpO2 Sensor Respiratory Rate 13 25 H 17 Blood Pressure Blood Pressure Mean Pulse Oximetry Oxygen Delivery Method Sepsis Recent Fever Within 48 Hours Sepsis New/Unexplained Change in Mental Status Sepsis Action Taken by Nursing 02/20/23 13:29 02/20/23 13:29 02/20/23 13:30 Temperature Temperature Source Pulse Rate 73 Pulse Rate from SpO2 Sensor Respiratory Rate 28 H Blood Pressure 177/97 H 193/87 H Blood Pressure Mean 123 122 Pulse Oximetry Oxygen Delivery Method Sepsis Recent Fever Within 48 Hours Sepsis New/Unexplained Change in Mental Status Sepsis Action Taken by Nursing 02/20/23 13:30 02/20/23 13:46 02/20/23 14:30 Temperature Temperature Source Pulse Rate 72 61 Pulse Rate from SpO2 Sensor Respiratory Rate 24 12 Blood Pressure 153/73 H Blood Pressure Mean 99 Pulse Oximetry Oxygen Delivery Method Sepsis Recent Fever Within 48 Hours Sepsis New/Unexplained Change in Mental Status Sepsis Action Taken by Nursing 02/20/23 16:15 02/20/23 15:27 02/20/23 15:27 Temperature Temperature Source Pulse Rate 59 L Pulse Rate from SpO2 Sensor 63 Respiratory Rate Blood Pressure 160/84 H Blood Pressure Mean 109 Pulse Oximetry 99 Oxygen Delivery Method Sepsis Recent Fever Within 48 Hours Sepsis New/Unexplained Change in Mental Status Sepsis Action Taken by Nursing 02/20/23 15:30 02/20/23 16:00 02/20/23 16:00 Temperature Temperature Source Pulse Rate 68 59 L Pulse Rate from SpO2 Sensor 68 59 L Respiratory Rate 18 19 Blood Pressure 153/78 H Blood Pressure Mean 103 Pulse Oximetry 98 96 Oxygen Delivery Method Sepsis Recent Fever Within 48 Hours Sepsis New/Unexplained Change in Mental Status Sepsis Action Taken by Nursing 02/20/23 16:30 02/20/23 16:30 Temperature Temperature Source Pulse Rate 59 L Pulse Rate from SpO2 Sensor Respiratory Rate 13 Blood Pressure 146/78 H Blood Pressure Mean 100 Pulse Oximetry Oxygen Delivery Method Sepsis Recent Fever Within 48 Hours Sepsis New/Unexplained Change in Mental Status Sepsis Action Taken by Nursing Laboratory Data Attestation: I reviewed the patient's lab results. 02/20/23 12:45 02/20/23 12:45 Lab Results 02/20/23 02/20/23 02/20/23 Range/Units 12:45 12:45 12:45 WBC 5.32 (4.8-10.8) K/ul RBC 3.93 L (4.20-5.40) M/uL Hgb 13.1 (12.0-16.0) g/dl Hct 38.5 (37.0-47.0) % MCV 98.0 (80.0-100.0) fL MCH 33.3 (25.0-34.0) pg MCHC 34.0 (32.0-36.0) g/dL RDW Std Deviation 48.9 H (36.4-46.3) fL RDW Coeff of Marianela 13.4 (11.5-14.5) % Plt Count 227 (130-400) K/uL MPV 9.7 (9.4-12.4) fL Immature Gran % (Auto) 0.2 % Neut % (Auto) 66.9 % Lymph % (Auto) 18.4 % Craig % (Auto) 11.3 % Eos % (Auto) 2.4 % Baso % (Auto) 0.8 % Neut # (Auto) 3.56 (1.40-6.50) K/uL Lymph # (Auto) 0.98 L (1.2-3.4) K/uL Craig # (Auto) 0.60 H (0.11-0.59) K/uL Eos # (Auto) 0.13 (0-0.50) K/uL Baso # (Auto) 0.04 (0-0.2) K/uL Immature Gran # (Auto) 0.01 (0.01-0.20) K/uL PT 11.1 (9.0-12.0) Seconds INR 1.0 (0.9-1.1) Sodium 135 L (136-145) mmol/L Potassium 3.9 (3.5-5.1) mmol/L Chloride 101 (98-107) mmol/L Carbon Dioxide 26 (21-32) mmol/L Anion Gap 8 (3-11) BUN 12 (6-23) mg/dl Creatinine 1.06 (0.6-1.2) mg/dl Est Cr Clr Drug Dosing 59.6 ml/min Est GFR ( Amer) 63.4 ml/min Est GFR (Non-Af Amer) 54.7 ml/min BUN/Creatinine Ratio 11.3 (10-20) Glucose 83 (70-99(Fasting)) mg/dl Calcium 9.3 (8.6-10.3) mg/dl Magnesium 1.7 (1.7-2.4) mg/dl Total Bilirubin 0.5 (0.2-1.0) mg/dl AST 18 (13-39) U/L ALT 13 (7-52) U/L Alkaline Phosphatase 69 (34-104) U/L Troponin I High Sens 3.5 (0-14) pg/ml Total Protein 6.8 (6.0-8.3) gm/dl Albumin 4.2 (3.4-5.0) gm/dl Globulin 2.6 (2.5-4.0) gm/dl Albumin/Globulin Ratio 1.6 (0.9-2) Lipase 7 L (11-82) U/L 25-OH Vitamin D Total (30-100) ng/ml TSH (0.300-4.500) uIu/ml Free T4 (0.61-1.60) ng/dl SARS-CoV-2, RNA, NAAT (NEGATIVE) 02/20/23 02/20/23 02/20/23 Range/Units 12:45 12:45 14:35 WBC (4.8-10.8) K/ul RBC (4.20-5.40) M/uL Hgb (12.0-16.0) g/dl Hct (37.0-47.0) % MCV (80.0-100.0) fL MCH (25.0-34.0) pg MCHC (32.0-36.0) g/dL RDW Std Deviation (36.4-46.3) fL RDW Coeff of Marianela (11.5-14.5) % Plt Count (130-400) K/uL MPV (9.4-12.4) fL Immature Gran % (Auto) % Neut % (Auto) % Lymph % (Auto) % Craig % (Auto) % Eos % (Auto) % Baso % (Auto) % Neut # (Auto) (1.40-6.50) K/uL Lymph # (Auto) (1.2-3.4) K/uL Craig # (Auto) (0.11-0.59) K/uL Eos # (Auto) (0-0.50) K/uL Baso # (Auto) (0-0.2) K/uL Immature Gran # (Auto) (0.01-0.20) K/uL PT (9.0-12.0) Seconds INR (0.9-1.1) Sodium (136-145) mmol/L Potassium (3.5-5.1) mmol/L Chloride (98-107) mmol/L Carbon Dioxide (21-32) mmol/L Anion Gap (3-11) BUN (6-23) mg/dl Creatinine (0.6-1.2) mg/dl Est Cr Clr Drug Dosing ml/min Est GFR ( Amer) ml/min Est GFR (Non-Af Amer) ml/min BUN/Creatinine Ratio (10-20) Glucose (70-99(Fasting)) mg/dl Calcium (8.6-10.3) mg/dl Magnesium (1.7-2.4) mg/dl Total Bilirubin (0.2-1.0) mg/dl AST (13-39) U/L ALT (7-52) U/L Alkaline Phosphatase (34-104) U/L Troponin I High Sens (0-14) pg/ml Total Protein (6.0-8.3) gm/dl Albumin (3.4-5.0) gm/dl Globulin (2.5-4.0) gm/dl Albumin/Globulin Ratio (0.9-2) Lipase (11-82) U/L 25-OH Vitamin D Total 54.1 (30-100) ng/ml TSH 15.439 H (0.300-4.500) uIu/ml Free T4 1.21 (0.61-1.60) ng/dl SARS-CoV-2, RNA, NAAT NEGATIVE (NEGATIVE) Administered Medications Apixaban (Apixaban 5 Mg Tablet) 5 mg PO BID [facility] Stop: 03/22/23 20:59 Last Admin: 02/20/23 20:54 Dose: 5 mg Documented By: EM Lidocaine (Lidocaine 5% 1 Patch) 1 patch TD [facility] Stop: 03/22/23 20:59 Last Admin: 02/20/23 20:51 Dose: 1 patch Documented By: EM Morphine Sulfate (Morphine Sulfate 4 Mg/Ml 1 Ml Carp\Vial) 4 mg IV Q2H PRN PRN Reason: Severe Pain (Rating 7,8,9,10) Stop: 03/06/23 15:53 Last Admin: 02/21/23 00:40 Dose: 4 mg Documented By: Admin: 02/20/23 20:06 Dose: 4 mg Documented By: Admin: 02/20/23 16:37 Dose: 4 mg Documented By: SHARYN Rosuvastatin Calcium (Rosuvastatin Calcium 10 Mg Tab) 10 mg PO [facility] Stop: 03/22/23 20:59 Last Admin: 02/20/23 20:54 Dose: 10 mg Documented By: EM Senna/Docusate Sodium (Docusate Sodium/Senna 50/8.6mg Tab) 1 tab PO [facility] Stop: 03/22/23 20:59 Last Admin: 02/20/23 20:54 Dose: 1 tab Documented By: EM Discontinued Medications Gadobutrol (Gadobutrol 65ml Vial) 8.5 ml IV ONCE ONE Stop: 02/20/23 18:50 Last Admin: 02/20/23 18:50 Dose: 8.5 ml Documented By: JOHNNY Sodium Chloride (Nss) 500 mls @ 999 mls/hr IV .Q31M ONE Stop: 02/20/23 12:51 Last Infusion: 02/20/23 14:12 Dose: 0 mls/hr Documented By: Admin: 02/20/23 13:29 Dose: 999 mls/hr Documented By: TASNEEM Acetaminophen (Ofirmev) 1,000 mg in 100 mls @ 400 mls/hr IV NOW STA Stop: 02/20/23 13:37 Last Infusion: 02/20/23 13:44 Dose: 0 mls/hr Documented By: Admin: 02/20/23 13:29 Dose: 400 mls/hr Documented By: TASNEEM Famotidine (Pepcid 20mg Iv Push) 20 mg in 5 mls @ 2.5 mls/min IV NOW STA Stop: 02/20/23 13:25 Last Admin: 02/20/23 13:30 Dose: 2.5 mls/min Documented By: TASNEEM Magnesium Sulfate/Dextrose (Magnesium Sulfate / D5w) 1 gm in 100 mls @ 50 mls/hr IV ONE ONE Stop: 02/20/23 21:30 Last Infusion: 02/20/23 22:18 Dose: 0 mls/hr Documented By: Admin: 02/20/23 20:06 Dose: 50 mls/hr Documented By: NINI Ioversol (Optiray 320 500ml) 113 ml IV ONCE ONE Stop: 02/20/23 14:13 Last Admin: 02/20/23 14:12 Dose: 113 ml Documented By: HILL Morphine Sulfate (Morphine Sulfate 4 Mg/Ml 1 Ml Carp\Vial) 4 mg IV NOW STA Stop: 02/20/23 13:24 Last Admin: 02/20/23 13:30 Dose: 4 mg Documented By: TASNEEM Imaging Data Radiologist's Impression: Abdomen/Pelvis CT 02/20/23 13:22 CT SCAN OF THE ABDOMEN AND PELVIS WITH IV CONTRAST CLINICAL HISTORY: Atypical chest pain. Generalized abdominal pain. Low back pain. COMPARISON STUDY: Abdominal CT dated 02/24/2022. TECHNIQUE: Following the IV administration of 113 cc of Optiray 320, CT scan of the abdomen and pelvis is performed from the lung bases to the proximal femora. Images are reviewed in the axial, sagittal, and coronal planes. IV contrast was administered without complication. A dose lowering technique was utilized adhering to the principles of ALARA. CT DOSE: 1214.84 mGy.cm FINDINGS: Lung bases: The tip of a central venous infusion port terminates in the right ventricle. The heart is normal in size and without pericardial effusion. There is a trace right pleural effusion and dependent atelectasis. No airspace consolidation is identified. A small hiatal hernia is noted. Liver: The contrast-enhanced liver is normal in size, contour, and attenuation. There is no intrahepatic biliary ductal dilatation. The hepatic veins and portal veins are patent. Gallbladder: Unremarkable. Spleen: Normal in size and attenuation. Pancreas: Moderately atrophic and grossly unremarkable. Adrenal glands: Unremarkable. Kidneys: The contrast enhanced kidneys demonstrate mild cortical atrophy and are without hydronephrosis. The kidneys enhance symmetrically. Foci of cortical scarring are seen in both kidneys. Left upper pole renal cysts measure up to 1.8 cm. Abdominal vasculature: The abdominal aorta is normal in course and caliber noting moderate to advanced atherosclerotic calcification. The right iliac vein is diminutive and not well visualized. Bowel: A small bowel anastomosis is noted in the left lower quadrant. No bowel obstruction is seen. There is mild colonic fecal retention. Scattered colonic diverticula are noted without CT evidence of acute diverticulitis. The appendix is not identified and reported surgically absent. Peritoneum: There is no intraperitoneal free air or abdominal ascites. A midline surgical scar is noted with evidence of interval ventral hernia repair. There is a fat-containing supraumbilical hernia. Lymphadenopathy: None. Pelvic viscera: The bladder is distended but otherwise normal in appearance. The uterus is surgically absent. There is an indeterminant 1.8 cm hyperdense structure with a hypodense center posterior to the lateral left which is new from previous. This is best seen on image #270. Skeletal structures: The skeletal structures are osteopenic. There is an acute to subacute compression fracture of L1 with mild loss of height. Fracture involves both the superior and inferior endplate as well as the anterior cortex. There is no involvement of the posterior cortex or posterior elements. No retropulsed fragments are identified. Paravertebral edema is noted at this level. There is an acute appearing right transverse process fracture of L2. There are chronic superior endplate compression deformity is of L2 and L3. No lytic or blastic lesions are seen. Chronic deformity and postsurgical changes noted in the right proximal femur. There is chronic deformity of the right sacral ala and the right pubic rami. IMPRESSION: 1. There is an acute to subacute appearing compression fracture of L1 with mild loss of height as detailed above. No significant retropulsion of fragments are seen. 2. There is an acute subacute appearing right transverse process fracture of L2. 3. Additional chronic fractures as above. 4. Bladder distention. 5. There is an indeterminant 1.8 cm ovoid hyperdense structure with central hypodensity seen in the left pelvis posterior to the bladder. This is new from previous and may be on a postsurgical basis. Attention at follow-up is recommended. 6. Trace right pleural effusion. 7. Additional findings as above. ACT 112: Negative or not required by law. Electronically signed by: Sarath Roy M.D. 02/20/2023 2:37 PM Chest CTA 02/20/23 13:22 CT angio chest PE protocol HISTORY: 67 years-old Female with chest/back/abd pain, h/o ovarian cancer, r/o PE. Acute shortness of breath and chest pain TECHNIQUE: Multiple CTA images of the chest were obtained after the intravenous administration of 113 ml Optiray. Coronal and sagittal MIPS were obtained from the axial data set and were submitted for review. All measurements were obtained according to NASCET criteria. A dose lowering technique was utilized adhering to the principles of ALARA. COMPARISON: CT abdomen and pelvis of same day, chest CT 02/24/2022 FINDINGS: CTA: The heart is normal in size without pericardial effusion. Moderate coronary artery calcifications. Atherosclerosis of the thoracic aorta without aneurysm. CT of the imaged great vessels. Right IJ [id number] catheter terminates in the right atrium. No pulmonary emboli are identified. CT CHEST: No thyroid nodule or lymphadenopathy. No pneumothorax, pleural effusion or overt pulmonary edema. Mild pulmonary emphysema with bronchial wall thickening. Subsegmental bibasilar atelectasis. There are no suspicious pulmonary nodules or masses identified. Cortical scarring with parenchymal thinning of the kidneys. Renal cysts are present. Subcentimeter calcifications of the superior pole right kidney. Unrem arkable soft tissues. Demineralized appearance of the bones with multilevel degenerative changes of the spine severe intervertebral disc space narrowing at T6-T7 redemonstrated. 50% mid vertebral body compression deformity at T8 without significant retropulsion is new from prior. 30% central compression deformity at L1 without retropulsion is new from prior. Heterogeneous sclerosis of this vertebral body is also noted with mild paravertebral edema.. Chronic L2 superior endplate compression deformity. IMPRESSION: 1. Acute to subacute appearing L1 compression deformity with mild paravertebral edema and no significant retropulsion. Sclerosis of this vertebral body is likely secondary to the fracture. A pathologic fracture considered less likely. 2. T8 compression deformity without significant retropulsion is also likely acute or subacute. 3. No pulmonary emboli identified. 4. No lymphadenopathy or evidence of thoracic metastatic disease. 5. Mild pulmonary emphysema. ACT 112: Negative or not required by law. The above report was generated using voice recognition software. It may contain grammatical, syntax or spelling errors. Electronically signed by: Mauro Marlow M.D. 02/20/2023 2:43 PM Discharge Plan Visit Data Chief Complaint: Chest Pain Stated Complaint: CHEST PAIN,SOB,BACK PAIN ED Provider: Demario Fleming Discharge Problem: Nontraumatic compression fracture of T8 vertebra, Primary cancer of ovary with widespread metastatic disease, Nontraumatic compression fracture of L1 vertebra, Intractable back pain Patient Disposition: Admitted As Inpatient Discharge Instructions Interventions: ED Discharge Assessment Last Done: 02/20/23 18:15
--- NOTE | 2023-02-20 16:15 | History & Physical Report ---
Date of Service February 20, 2023 Assessment & Plan (1) Back pain: Plan: ongoing pain for a week, worsening imaging on admission noted L1/T8 compression fracture with no obvious trauma/injury in patient w/ hx metastatic ovarian ca, supposedly in remission (note, thyroid nodule noted by PCP/hypothyroidism w recent adjustments as below) Obs med/surg Check MRI of lumbar & thoracic spine w/w/o to eval to look for evidence for metastatic disease/pathological fx given her history Dr Mccurdy consulted -- appreciate recs/assistance Pain control, bowel regimen as needed -- Tylenol/Tramadol/morphine as needed Heating pad/lidocaine patches Check Vit D level as well -- patient reports she is on 5000 IU daily, scheduled as such PT/OT consultations to be undertaken consider calcitonin nasal spray to assist w/ pain control/orthotics consultation for brace pending MRI imaging for assistance w/ pain control (2) Compression fracture of L1 lumbar vertebra: Plan: noted, see above (3) Chest pain: Plan: ongoing chest/back pain x 1 week CTA NEGATIVE for PE trop 3.4 on initial check, EKG NSR. Last ECHO 2019 w/ LV systolic function norm al. Moderate AI, trace-mild MR/TR Suspect pain related to her fractures -- tx as above (4) Primary cancer of ovary with widespread metastatic disease: Plan: supposedly in remission imaging for eval as above for concerns pathological fracture Note: There is an indeterminant 1.8 cm ovoid hyperdense structure with central hypodensity seen in the left pelvis posterior to the bladder. This is new from previous and may be on a postsurgical basis. Attention at follow-up is recommended --> will need f/u She also notes R thyroid nodule her PCP is keeping an eye on as well (5) PAF (paroxysmal atrial fibrillation): Plan: on Eliquis 5mg BID, amiodarone 200mg daily. 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 When inquired about how/when she takes this medication, she notes she has been taking this with her other medications. Education provided on correct use Plan inpatient stay for pain control, mri lumbar spine w/w/o contrast for further evaluation and consultation w/ orthopedic surgery PT/OT consultation prior to discahrge History of Present Illness Chief Complaint: chest/back pain Primary Care Provider: Ramírez Robertshari 67yo female with PMHx significant for ovarian ca primary with metastatic disease to the stomach, treated with abdominal tumor resection with bowel remova l and reanastomosis, mediport placement in 2021 and chemotherapy through [facility]/Dr Luong and has been in remission per her account. Other PMHx significant for paroxysmal atrial fibrillation,, prior SBOs (likely on basis of adhesions given prior surgery), right iliac vein DVT and during hospitalization for her abd surgery resulting in hematoma around site of right IJ which had to be evacuated and placement w/ IVC filter placed prior to discharge which was removed by Dr Cotter earlier this year. She presented to the ER symptoms of chest and back pain ongoing for about a week but waited to seek medical care due to not wanting to interrupt . Reported shortness of breath/pain w/ deep breathing due to pain in her chest/back. No trauma reported. Troponin 3.4. She reports that she has been having pain for about a week -- taking some Tylenol and left over muscle relaxers at home without much relief. No trauma reported but she does note that she had been taking a hot bath last weekend and getting up out of shower felt a sharp pain but then was fine once up/walking. She notes she was taking care of her grandson a month prior to this and she noted that she felt a pop, and went to urgent care and had x-rays which she noted they said looked fine. She does carry a history of osteoporosis and has been taking oral vitamin D 5000 daily. She notes last week on Sunday her and took a ride in a side by side and thinks this may have aggravated her pain w/ the ride in the side car. She notes pain ok/tolerable at present but that she just got some morphine from ER nurse not long ago. Discussed her Synthroid -- she notes that is new med since last year and started with 100mcg and just recently increased to 175mcg 1-2 days ago. She states she has been taking this medication WITH her other morning medications, and notes she was unaware of interaction w/ calcium supplementation and notes the Vitamin D she has been on. Discussed setting alarm and taking on empty stomach prior to any other medications. She does endorse fatigue/dry skin/nails/etc. She notes she had US of her thyroid and was told has a small nodule on the right that they have been keeping an eye on. She states she has been following oncology and currently in remission. Has chronic RLE edema from her prior DVT and NO CHANGE from baseline. Remains on eliquis and no missed doses reported. ER Course: CTA of the chest was NEGATIVE for PE CT chest/abdomen revealed subacute compression fracture of L1 w/ mild loss of height and acute to subacute appearingright transverse process fracture of L2 as well as acute to subacute compression fracture of T8 with no evidence of significant retropulsion. Given morphine 4mg IV x 1, 1gm IV Tylenol and 500cc NSS thus far. ER provider discussed case with Dr Mccurdy who recommended MRI w/ contrast to further evaluated whether or not fracture could be pathologic in origin given patients history of malignancy. Will be admitted for pain control, MRI of lumbar spine for further eval of fractures given her history. She states she is a DNR if no meaningful recovery, her family is aware of wishes (confirmed w/ at bedside) but that she is ok w/ short term and noted she was ok w/ intubation required last admission. Will make Full Code for now. 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 They are from [place] Allergies Allergy/AdvReac Type Severity Reaction Status Date / Time ibuprofen Allergy Severe Anaphylaxis Verified 02/20/23 14:39 codeine Allergy Intermediate Rash Verified 02/20/23 14:39 Home Medications Medication Instructions Recorded Confirmed Type Walking Cane #1 ea 06/22/20 11/02/22 Rx sennosides 8.6 mg-docusate sodium 1 tab PO HS 01/05/22 02/20/23 History 50 mg tablet (Senokot-S) tramadol 50 mg tablet 50 mg PO Q8H PRN Pain 01/05/22 02/20/23 History amiodarone 200 mg tablet 200 mg PO DAILY 90 days #90 tabs 04/20/22 02/20/23 Rx apixaban 5 mg tablet (Eliquis) 5 mg PO BID #180 tabs 04/20/22 02/20/23 Rx rosuvastatin 10 mg tablet 10 mg PO HS #90 tabs 04/20/22 02/20/23 Rx levothyroxine 175 mcg tablet 175 mcg PO QAM 02/20/23 02/20/23 History Past Med/Surg History Medical History Atrial fibrillation with RVR Critical airway Deep vein thrombosis (DVT) of iliac vein of right lower extremity Encounter for pre-operative examination Foreign body accidentally left during a procedure Fracture of pubic ramus Hematoma of neck Hypercholesteremia Neck swelling Paroxysmal atrial fibrillation Primary cancer of ovary with widespread metastatic disease Small bowel obstruction Surgical History History of abdominal surgery History of bowel resection History of total right hip arthroplasty Social History Smoking Status: Former smoker Tobacco Type: E-cigarettes / Vaping Second Hand Exposure: Yes; Hx Alcohol Use: Yes Alcohol type: beer Hx Substance Use: No Preferred Language: Urdu Communication Ability: Effective Irrigation Flume Layer Required: No Beliefs That Will Affect Care: None Current Living Situation: Spouse Other Information That Helps Us Care for You: No Feels Safe at Home: Yes Safety Concerns: Feels Safe At This Time Assistive Devices: Denture - Upper and Glasses Review of Systems Review of Systems: All systems reviewed & are unremarkable except as noted in HPI & below Physical Exam Physical Exam: general: 67yo female in bed, mildly uncomfortable appearing getting situated in bed, general pallor heent: head atraumatic, normocephalic, mmm, trachea midline, ?R sided thyoid nodule/nontender chest: port site looks good, no evidence for infection/erythema resp: cta, slightly diminished R bases, no wheezing/crackles, on room air, no tachypnea cv: regular rate/rhythm, faint murmur, no pitting edema, chronic RLE edema reported/calves nontender gi: +BS, slightly distended, gu: no hicks msk/neuro: dorsiflexion/plantar flexion intact, pulses palpable, NVI tenderness to palpation of lumbar/thoracic spine, paraspinal muscle t enderness/spasms/tightness psych: aox3 Results & Data Results & Data Vital Signs (Past 12 Hours) Vital Signs Temp Pulse Resp BP Pulse Ox O2 Del Method 02/20/23 14:30 153/73 H 02/20/23 13:46 61 12 02/20/23 13:30 72 24 02/20/23 13:30 193/87 H 02/20/23 13:29 177/97 H 02/20/23 13:29 73 28 H 02/20/23 13:00 65 17 02/20/23 12:30 65 25 H 02/20/23 12:24 63 13 02/20/23 12:25 66 02/20/23 12:21 Room Air 02/20/23 12:04 36.5 C 71 19 157/86 H 99 Room Air Laboratory Results 02/20/23 02/20/23 02/20/23 Range/Units 14:35 12:45 12:45 WBC 5.32 (4.8-10.8) K/ul RBC 3.93 L (4.20-5.40) M/uL Hgb 13.1 (12.0-16.0) g/dl Hct 38.5 (37.0-47.0) % MCV 98.0 (80.0-100.0) fL MCH 33.3 (25.0-34.0) pg MCHC 34.0 (32.0-36.0) g/dL RDW Std Deviation 48.9 H (36.4-46.3) fL RDW Coeff of Marianela 13.4 (11.5-14.5) % Plt Count 227 (130-400) K/uL MPV 9.7 (9.4-12.4) fL Immature Gran % (Auto) 0.2 % Neut % (Auto) 66.9 % Lymph % (Auto) 18.4 % Highland % (Auto) 11.3 % Eos % (Auto) 2.4 % Baso % (Auto) 0.8 % Neut # (Auto) 3.56 (1.40-6.50) K/uL Lymph # (Auto) 0.98 L (1.2-3.4) K/uL Highland # (Auto) 0.60 H (0.11-0.59) K/uL Eos # (Auto) 0.13 (0-0.50) K/uL Baso # (Auto) 0.04 (0-0.2) K/uL Immature Gran # (Auto) 0.01 (0.01-0.20) K/uL PT 11.1 (9.0-12.0) Seconds INR 1.0 (0.9-1.1) Sodium (136-145) mmol/L Potassium (3.5-5.1) mmol/L Chloride (98-107) mmol/L Carbon Dioxide (21-32) mmol/L Anion Gap (3-11) BUN (6-23) mg/dl Creatinine (0.6-1.2) mg/dl Est Cr Clr Drug Dosing ml/min Est GFR ( Amer) ml/min Est GFR (Non-Af Amer) ml/min BUN/Creatinine Ratio (10-20) Glucose (70-99(Fasting)) mg/dl Calcium (8.6-10.3) mg/dl Magnesium (1.7-2.4) mg/dl Total Bilirubin (0.2-1.0) mg/dl AST (13-39) U/L ALT (7-52) U/L Alkaline Phosphatase (34-104) U/L Troponin I High Sens (0-14) pg/ml Total Protein (6.0-8.3) gm/dl Albumin (3.4-5.0) gm/dl Globulin (2.5-4.0) gm/dl Albumin/Globulin Ratio (0.9-2) Lipase (11-82) U/L SARS-CoV-2, RNA, NAAT NEGATIVE (NEGATIVE) 02/20/23 Range/Units 12:45 WBC (4.8-10.8) K/ul RBC (4.20-5.40) M/uL Hgb (12.0-16.0) g/dl Hct (37.0-47.0) % MCV (80.0-100.0) fL MCH (25.0-34.0) pg MCHC (32.0-36.0) g/dL RDW Std Deviation (36.4-46.3) fL RDW Coeff of Marianela (11.5-14.5) % Plt Count (130-400) K/uL MPV (9.4-12.4) fL Immature Gran % (Auto) % Neut % (Auto) % Lymph % (Auto) % Highland % (Auto) % Eos % (Auto) % Baso % (Auto) % Neut # (Auto) (1.40-6.50) K/uL Lymph # (Auto) (1.2-3.4) K/uL Highland # (Auto) (0.11-0.59) K/uL Eos # (Auto) (0-0.50) K/uL Baso # (Auto) (0-0.2) K/uL Immature Gran # (Auto) (0.01-0.20) K/uL PT (9.0-12.0) Seconds INR (0.9-1.1) Sodium 135 L (136-145) mmol/L Potassium 3.9 (3.5-5.1) mmol/L Chloride 101 (98-107) mmol/L Carbon Dioxide 26 (21-32) mmol/L Anion Gap 8 (3-11) BUN 12 (6-23) mg/dl Creatinine 1.06 (0.6-1.2) mg/dl Est Cr Clr Drug Dosing 59.6 ml/min Est GFR ( Amer) 63.4 ml/min Est GFR (Non-Af Amer) 54.7 ml/min BUN/Creatinine Ratio 11.3 (10-20) Glucose 83 (70-99(Fasting)) mg/dl Calcium 9.3 (8.6-10.3) mg/dl Magnesium 1.7 (1.7-2.4) mg/dl Total Bilirubin 0.5 (0.2-1.0) mg/dl AST 18 (13-39) U/L ALT 13 (7-52) U/L Alkaline Phosphatase 69 (34-104) U/L Troponin I High Sens 3.5 (0-14) pg/ml Total Protein 6.8 (6.0-8.3) gm/dl Albumin 4.2 (3.4-5.0) gm/dl Globulin 2.6 (2.5-4.0) gm/dl Albumin/Globulin Ratio 1.6 (0.9-2) Lipase 7 L (11-82) U/L SARS-CoV-2, RNA, NAAT (NEGATIVE) Diagnostic Findings Chest X-Ray 02/20/23 12:21 XR chest 1V portable HISTORY: 67 years-old Female Chest pain, nonspecific acute chest pain COMPARISON: Chest radiograph 01/09/2022 TECHNIQUE: AP view of the chest FINDINGS: Cardiomediastinal and hilar silhouettes are within normal limits. Atherosclerosis of the aorta. Right IJ [id number] catheter is unchanged. Mild chronic interstitial coarsening. No pneumothorax, pleural effusion, airspace consolidation or pulmonary edema. Bones appear grossly intact. IMPRESSION: No acute process. ACT 112: Negative or not required by law. The above report was generated using voice recognition software. It may contain grammatical, syntax or spelling errors. Electronically signed by: Mauro Marlow M.D. 02/20/2023 1:12 PM Abdomen/Pelvis CT 02/20/23 13:22 CT SCAN OF THE ABDOMEN AND PELVIS WITH IV CONTRAST CLINICAL HISTORY: Atypical chest pain. Generalized abdominal pain. Low back pain. COMPARISON STUDY: Abdominal CT dated 02/24/2022. TECHNIQUE: Following the IV administration of 113 cc of Optiray 320, CT scan of the abdomen and pelvis is performed from the lung bases to the proximal femora. Images are reviewed in the axial, sagittal, and coronal planes. IV contrast was administered without complication. A dose lowering technique was utilized adhering to the principles of ALARA. CT DOSE: 1214.84 mGy.cm FINDINGS: Lung bases: The tip of a central venous infusion port terminates in the right ventricle. The heart is normal in size and without pericardial effusion. There is a trace right pleural effusion and dependent atelectasis. No airspace consolidation is identified. A small hiatal hernia is noted. Liver: The contrast-enhanced liver is normal in size, contour, and attenuation. There is no intrahepatic biliary ductal dilatation. The hepatic veins and portal veins are patent. Gallbladder: Unremarkable. Spleen: Normal in size and attenuation. Pancreas: Moderately atrophic and grossly unremarkable. Adrenal glands: Unremarkable. Kidneys: The contrast enhanced kidneys demonstrate mild cortical atrophy and are without hydronephrosis. The kidneys enhance symmetrically. Foci of cortical scarring are seen in both kidneys. Left upper pole renal cysts measure up to 1.8 cm. Abdominal vasculature: The abdominal aorta is normal in course and caliber noting moderate to advanced atherosclerotic calcification. The right iliac vein is diminutive and not well visualized. Bowel: A small bowel anastomosis is noted in the left lower quadrant. No bowel obstruction is seen. There is mild colonic fecal retention. Scattered colonic diverticula are noted without CT evidence of acute diverticulitis. The appendix is not identified and reported surgically absent. Peritoneum: There is no intraperitoneal free air or abdominal ascites. A midline surgical scar is noted with evidence of interval ventral hernia repair. There is a fat-containing supraumbilical hernia. Lymphadenopathy: None. Pelvic viscera: The bladder is distended but otherwise normal in appearance. The uterus is surgically absent. There is an indeterminant 1.8 cm hyperdense structure with a hypodense center posterior to the lateral left which is new from previous. This is best seen on image #270. Skeletal structures: The skeletal structures are osteopenic. There is an acute to subacute compression fracture of L1 with mild loss of height. Fracture involves both the superior and inferior endplate as well as the anterior cortex. There is no involvement of the posterior cortex or posterior elements. No retropulsed fragments are identified. Paravertebral edema is noted at this level. There is an acute appearing right transverse process fracture of L2. The re are chronic superior endplate compression deformity is of L2 and L3. No lytic or blastic lesions are seen. Chronic deformity and postsurgical changes noted in the right proximal femur. There is chronic deformity of the right sacral ala and the right pubic rami. IMPRESSION: 1. There is an acute to subacute appearing compression fracture of L1 with mild loss of height as detailed above. No significant retropulsion of fragments are seen. 2. There is an acute subacute appearing right transverse process fracture of L2. 3. Additional chronic fractures as above. 4. Bladder distention. 5. There is an indeterminant 1.8 cm ovoid hyperdense structure with central hypodensity seen in the left pelvis posterior to the bladder. This is new from previous and may be on a postsurgical basis. Attention at follow-up is recommended. 6. Trace right pleural effusion. 7. Additional findings as above. ACT 112: Negative or not required by law. Electronically signed by: Sarath Roy M.D. 02/20/2023 2:37 PM Chest CTA 02/20/23 13:22 CT angio chest PE protocol HISTORY: 67 years-old Female with chest/back/abd pain, h/o ovarian cancer, r/o PE. Acute shortness of breath and chest pain TECHNIQUE: Multiple CTA images of the chest were obtained after the intravenous administration of 113 ml Optiray. Coronal and sagittal MIPS were obtained from the axial data set and were submitted for review. All measurements were obtained according to NASCET criteria. A dose lowering technique was utilized adhering to the principles of ALARA. COMPARISON: CT abdomen and pelvis of same day, chest CT 02/24/2022 FINDINGS: CTA: The heart is normal in size without pericardial effusion. Moderate coronary artery calcifications. Atherosclerosis of the thoracic aorta without aneurysm. CT of the imaged great vessels. Right IJ [id number] catheter terminates in the right atrium. No pulmonary emboli are identified. CT CHEST: No thyroid nodule or lymphadenopathy. No pneumothorax, pleural effusion or overt pulmonary edema. Mild pulmonary emphysema with bronchial wall thickening. Subsegmental bibasilar atelectasis. There are no suspicious pulmonary nodules or masses identified. Cortical scarring with parenchymal thinning of the kidneys. Renal cysts are present. Subcentimeter calcifications of the superior pole right kidney. Unremarkable soft tissues. Demineralized appearance of the bones with multilevel degenerative changes of the spine severe intervertebral disc space narrowing at T6-T7 redemonstrated. 50% mid vertebral body compression deformity at T8 without significant retropulsion is new from prior. 30% central compression deformity at L1 without retropulsion is new from prior. Heterogeneous sclerosis of this vertebral body is also noted with mild paravertebral edema.. Chronic L2 superior endplate compression deformity. IMPRESSION: 1. Acute to subacute appearing L1 compression deformity with mild paravertebral edema and no significant retropulsion. Sclerosis of this vertebral body is likely secondary to the fracture. A pathologic fracture considered less likely. 2. T8 compression deformity without significant retropulsion is also likely acute or subacute. 3. No pulmonary emboli identified. 4. No lymphadenopathy or evidence of thoracic metastatic disease. 5. Mild pulmonary emphysema. ACT 112: Negative or not required by law. The above report was generated using voice recognition software. It may contain grammatical, syntax or spelling errors. Electronically signed by: Mauro Marlow M.D. 02/20/2023 2:43 PM Supervising Physician Co-Signing Physician Notes I personally saw and examined the patient. I verified all otero points and agree with Zakiya Briggs PA-C with the following exceptions and/or additions: 67 year old female presents to the ER with back pain. Multiple exacerbating events as detailed above. O/E T8 central spinal pain on palpation with bilateral radicular pains, HS RRR, no murmurs, Chest CTAB, Abdo SNT A/P T8 compression fracture - seen on CT chest, awaiting thoracic spine MRI w/wo contrast to assess as requested by ortho spine. Vit D level normal. L1 compression fracture - not having significant pain here, no radicular signs/symptoms. Lumbar spine MRI w/wo contrast also requested by ortho spine. Acute/subaute L2 transverse process fracture - not having significant pain here either. Pain medications as above. 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
[2023-02-20] MEDS: MoRPHine SULFATE 4 MG/ML 1 ML CARP\\VIAL IV PRN ×2 (16:37→20:06)
[2023-02-20] MEDS ORDERED: GADOBUTROL 65ML VIAL IV ONE (18:49)
[2023-02-20] MEDS ORDERED: ACETAMINOPHEN 500 MG TAB PO PRN (19:31)
[2023-02-20] MEDS ORDERED: MAGNESIUM SULFATE / D5W 1 GM/100 ML BAG IV ONE (19:31)
[2023-02-20] MEDS ORDERED: ONDANSETRON INJ 2 MG/ML 2 ML VIAL IV PRN (19:31)
[2023-02-20 20:46] LABS: Thyroid Stimulating Hormone 15.439 uIu/ml (0.300-4.500)
[2023-02-20] MEDS: LIDOCAINE 5% 1 PATCH TD SCH (20:51)
[2023-02-20] MEDS: ROSUVASTATIN CALCIUM 10 MG TAB PO SCH (20:54)
[2023-02-20] MEDS: DOCUSATE SODIUM/SENNA 50/8.6MG TAB PO SCH (20:54)
[2023-02-20] MEDS: APIXABAN 5 MG TABLET PO SCH (20:54)
[2023-02-20 21:17] LABS: T4 Free Thyroxine 1.21 ng/dl (0.61-1.60)
[2023-02-21] MEDS: MoRPHine SULFATE 4 MG/ML 1 ML CARP\\VIAL IV PRN ×6 (00:40→21:51)
[2023-02-21] MEDS: LEVOTHYROXINE SODIUM 175 MCG TABLET PO SCH (05:25)
[2023-02-21] MEDS: AMIODARONE 200 MG TAB PO SCH (07:41)
[2023-02-21] MEDS: CHOLECALCIFEROL 5,000 UNITS 125 MCG TAB PO SCH (07:41)
[2023-02-21] MEDS: APIXABAN 5 MG TABLET PO SCH ×2 (07:41→21:46)
[2023-02-21] MEDS: MoRPHine SULFATE 2 MG/ML CARP IV PRN (07:49)
--- NOTE | 2023-02-21 08:54 | Hospitalist Progress Note ---
Date of Service February 21, 2023 Assessment & Plan (1) Back pain: Plan: ongoing pain for a week, worsening imaging on admission noted L1/T8 compression fracture with no obvious trauma/injury in patient w/ hx metastatic ovarian ca, supposedly in remission (note, thyroid nodule noted by PCP/hypothyroidism w recent adjustments as below) Check MRI of lumbar & thoracic spine - scattered enhancing foci in spine concerning for bony metastatic disease with compression deformity at T8 with minimal retropulsion compatible with pathologic fracture full reports above Dr Mccurdy consulted - appreciate recs/assistance Dr Scott consulted - appreciate recs/assistance Pain control, bowel regimen as needed - Tylenol/Tramadol/morphine as needed Heating pad/lidocaine patches PT/OT consultations to be undertaken - One time dose of Ativan 0.5 mg after results of MRI reviewed with patient (patient requested something for anxiety and her nerves) consider calcitonin nasal spray to assist w/ pain control/orthotics consultation for brace pending MRI imaging for assistance w/ pain control Reviewed Lipase normal, LFTs normal BMP also normal, Mg 1.9 CBC - WBC 4.8, H&H normal 13.2 & 38.8, PLT 21.7 (2) Compression fracture of L1 lumbar vertebra: Plan: Compression fracture T8 and L1 MRI with concern for bony mets Dr Mccurdy discussed kyphoplasty and biopsy to help delineate a diagnosis Patient is aware needs to hold the Eliquis and will start a heparin drip She is aware of the risk of this and also risk of surgery and would like to proceed Spoke directly to Dr Mccurdy and may plan for surgery Sunday and would recommend off Eliquis Sunday and Sunday for surgery Sunday (3) Chest pain: Plan: ongoing chest/back pain x 1 week CTA NEGATIVE for PE trop 3.4 on initial check, EKG NSR. Last ECHO 2019 w/ LV systolic function normal. Moderate AI, trace-mild MR/TR Suspect pain related to her fractures -- tx as above (4) Primary cancer of ovary with widespread metastatic disease: Plan: supposedly in remission imaging for eval as above for concerns pathological fracture Note: There is an indeterminant 1.8 cm ovoid hyperdense structure with central hypodensity seen in the left pelvis posterior to the bladder. This is new from previous and may be on a postsurgical basis. Attention at follow-up is recommended --> will need f/u She also notes R thyroid nodule her PCP is keeping an eye on as well Possibly may need a repeat PET scan vs U/S pelvis Last PET scan was 2019 Consulted oncology (5) PAF (paroxysmal atrial fibrillation): Plan: on Eliquis 5mg BID, amiodarone 200mg daily. follows with Dr Potter Currently in NSR on monitor/EKG no need for monitoring on telemetry at this time --> however, repeating TSH/adjustment of Synthroid as needed below Also on Crestor 10mg daily for HLD, continued (6) Deep vein thrombosis (DVT) of iliac vein of right lower extremity: Plan: hx of such and IVC filter since removed eliquis 5mg BID May have surgery Sunday and per Dr Mccurdy would hold Eliquis Sunday and Sunday and then proceed with surgery Sunday (7) Hypothyroidism: Plan: continue Synthroid 175mcg daily for now, but prior TSHs 38 in August when she was dx afib/rvr and place on synthroid TSH 15 TSH 21 in November in our system - Of note, she states her Synthroid was just adjusted to 175mcg in the past 1-2 days. When inquired about how/when she takes this medication, she notes she has been taking this with her other medications. Education provided on correct use Also had recent U/S thyroid for a nodule and may eventually need FNA of the nodule Plan inpatient stay for pain control, mri lumbar spine with changes concerning for bony metastatic disease Consult Dr Mccurdy and Dr Rocha Admission and Anticipated Discharge Date Admission Date: February 20, 2023 Subjective Patient is awake in bed and is at bedside. She still has mid thoracic back pain. She had thoracic and lumbar xray and MRIs. A consult has been placed with Dr Mccurdy. Patient has a hx of primary ovarian cancer with previous mets, told had been in remission. She denies any chest pain, but states it does hurt to take a deep breath with the back pain. She denies any paresthesias, anesthesias. Review of Systems Constitutional: + weight gain; no fever, no chills and no weight loss Respiratory: + pain on inspiration; no cough, no chest congestion and no hemoptysis Cardiovascular: no chest pain, no palpitations, no edema and no calf pain Gastrointestinal: no abdominal pain, no nausea, no vomiting and no change in bowel habits Genitourinary: no dysuria, no difficulty urinating, no urinary frequency and no urinary hesitancy Musculoskeletal: + back pain; no neck pain Integumentary: no rash, no lesions and no new lesions Neurologic: no falls and no tingling Psychiatric: + depression and + anxiety; no change in appetite, no confusion, no hallucinations and no auditory hallucinations Endocrine: + fatigue + weight gain and hypothyroidism Physical Exam Constitutional: WD/WN, vitals as above Neck: trachea midline, no thyromegaly Respiratory: normal respiratory effort, lungs clear to auscultation Cardiovascular: RRR, no murmur, no edema Gastrointestinal (Abdomen): normal bowel sounds, soft, nontender, no hepatosplenomegaly Psychiatric: A+Ox3, euthymic affect After discussed the results of the mri, patient was tearful and asking for something for anxiety Results & Data Results & Data Vital Signs (Past 12 Hours) Vital Signs Temp Pulse Resp BP Pulse Ox O2 Del Method 02/21/23 07:28 36.8 C 62 18 113/64 97 Room Air 02/20/23 21:24 36.6 C 62 16 108/61 98 Room Air Laboratory Results Abnormal lab results 02/20/23 02/20/23 02/20/23 Range/Units 12:45 12:45 12:45 RBC 3.93 L (4.20-5.40) M/uL RDW Std Deviation 48.9 H (36.4-46.3) fL Lymph # (Auto) 0.98 L (1.2-3.4) K/uL [place] # (Auto) 0.60 H (0.11-0.59) K/uL Sodium 135 L (136-145) mmol/L Lipase 7 L (11-82) U/L TSH 15.439 H (0.300-4.500) uIu/ml Diagnostic Findings Lumbar Spine MRI 02/20/23 16:35 MR lumbar spine wo/w con CLINICAL HISTORY: 67 years-old Female with L1 fx, hx met ovarian ca, eval pathological fx. Acute low back pain in a patient with history of ovarian carcinoma and prior lumbar compression deformities. COMPARISON: CT abdomen and pelvis of same day, and also 02/24/2022, MRI lumbar spine 09/10/2015. TECHNIQUE: Multiplanar, multi sequence MRI of the lumbar spine was performed both with and without the use of 8.5 cc Gadavist. FINDINGS: [employer] Writer localizer images demonstrate no gross extraspinal abnormality. Susceptibility artifact related to the right hip ORIF hardware. Conus medullaris terminates at T12-L1. Questioned edema overlying the mid sacrum is likely artifactual. Chronic L2 and L3 compression deformities demonstrate mild likely degenerative marrow superior endplate Schmorl's nodes and no significant retropulsion. There is an acute L1 compression deformity which demonstrates approximately 50% central vertebral body height loss without significant retropulsion. Mild likely degenerative bone marrow edema at T11 and T12 with small superior endplate Schmorl's node at T11 with moderate surrounding marrow edema. Mild marrow edema involves the left pedicles and facets at L4-L5, likely reactive. Acute/subacute appearing right L2 transverse process fracture. Corresponding enhancement is noted within the areas of described marrow edema. T12-L1: Ligamentum flavum thickening with moderate facet arthrosis. No central canal or neural foraminal narrowing. L1-L2: Spondylitic spurring with small circumferential annular disc bulge and posterior disc osteophyte complex. Ligamentum flavum thickening with moderate facet arthrosis. Mild bilateral neural foraminal narrowing. The central canal is patent. L2-L3: Spondylitic spurring with small circumferential annular disc bulge. Ligamentum flavum thickening with moderate facet arthrosis. The central canal and right neural foramen are patent. Mild left neural foraminal narrowing. L3-L4: Spondylitic spurring with small posterior annular disc bulge. Ligamentum flavum thickening with severe facet arthrosis. The central canal is patent. Mild inferior bilateral neural foraminal narrowing. L4-L5: Mild intervertebral disc space narrowing with spondylitic spurring. Small circumferential annular disc bulge, eccentric to the left with annular fissure. Ligamentum flavum thickening with severe facet arthrosis, small right and moderate left facet effusions. AP dimension of the thecal sac measures 6 mm. Moderate to severe central canal stenosis with mild to moderate right and moderate left lateral recess narrowing. Mild right with moderate left neural foraminal narrowing. L5-S1: Mild intervertebral disc space narrowing and spondylitic spurring with small circumferential annular disc bulge, eccentric to the right. Ligamentum flavum thickening with severe facet arthrosis, trace left and moderate right facet effusions. Mild central canal stenosis, AP dimension of the thecal sac measuring 9 mm. Mild left with mild to moderate right neural foraminal narrowing. There is at least mild narrowing of the right lateral recess. IMPRESSION: 1. Acute appearing L1 compression deformity with 50% vertebral body height loss and no significant retropulsion. 2. Superior endplate Schmorl's node at T11 with moderate marrow edema, likely acute or subacute. 3. Chronic L2 and L3 compression deformities. 4. Areas of enhancement within the thoracolumbar spine are likely reactive/degenerative. No definite marrow replacing process identified. 5. Discogenic degeneration with spondylitic spurring and facet arthrosis as above resulting in multilevel neural foraminal narrowing with central canal stenosis at L4-L5 and L5-S1. 6. Acute/subacute right L2 transverse process fracture. ACT 112: Negative or not required by law. The above report was generated using voice recognition software. It may contain grammatical, syntax or spelling errors. Dictated: 02/21/2023 8:52 AM Transcribed: 02/21/2023 9:30 AM Mauricio [id number] Electronically signed by: Mauro Marlow M.D. 02/21/2023 9:44 AM Thoracic Spine MRI 02/21/23 00:00 MR thoracic spine wo/w con CLINICAL HISTORY: t8 fx, eval hx met disease TECHNIQUE: Multiplanar sequences through the thoracic spine were obtained, without and with intravenous contrast. Comparison: None available at the time of this dictation. FINDINGS: Multilevel degenerative changes are seen. There is a compression deformity in T8 with edema and enhancement of the vertebral body and approximately 2 mm retropulsion, likely representing an acute pathologic fracture. Additional foci of enhancement are seen throughout the spine compatible with bony metastatic disease, most prominent at L1 and T11. The spinal canal and neural foramina are patent. Multilevel disc disease is seen without significant canal stenosis. There is suggestion of moderate neuroforaminal stenosis at the level of T8-T9. IMPRESSION: Scattered enhancing foci are seen in the spine concerning for bony metastatic disease with compression deformity at T8 with minimal retropulsion compatible with pathologic fracture. There is physician a moderate neuroforaminal stenosis at this level. ACT 112: Negative or not required by law. Electronically signed by: Teo Hartman M.D. 02/21/2023 10:16 AM Lumbar Spine X-Ray 02/21/23 07:49 XR lumbar spine 2-3V HISTORY: 67 years-old Female back pain acute mid to low back pain. COMPARISON: MRI thoracic and lumbar spine studies of same day. TECHNIQUE: 2 views of the lumbar spine FINDINGS: Chronic L2 and L3 compression deformities. Acute L1 compression fracture with approximately 50% vertebral body height loss is unchanged from the comparison MRI. Mild dextroscoliosis. Spondylitic spurring with facet arthrosis is unchanged. There is a 2.2 cm calcification within the abdominal left upper quadrant. Moderate fecal retention of the rectum and sigmoid. IMPRESSION: 1. Acute 50% superior endplate compression deformity of the L1 vertebral body without significant retropulsion is unchanged from yesterday's lumbar spine MRI. 2. Chronic L2 and L3 compression fractures. 3. Degenerative changes as above. 4. Dextroscoliosis. ACT 112: Negative or not required by law. The above report was generated using voice recognition software. It may contain grammatical, syntax or spelling errors. Electronically signed by: Mauro Marlow M.D. 02/21/2023 11:17 AM Thoracic Spine X-Ray 02/21/23 07:49 XR thoracic spine 3V routine CLINICAL HISTORY: back pain TECHNIQUE: 3 views of the thoracic spine were obtained. Comparison: Comparison is made to MRI thoracic spine 02/21/[address] chest 02/24/2022 FINDINGS: A right port catheter Anterior wedge deformity is noted at T8 which is new from CT chest performed 2021. Degenerative changes are seen in the thoracic spine. Alignment appears unremarkable. Prevertebral soft tissues are within normal limits. IMPRESSION: Compression fracture of the T8 vertebral body of unknown chronicity but favored to be acute given appearance on MRI. ACT 112: Negative or not required by law. Electronically signed by: Teo Hartman M.D. 02/21/2023 10:18 AM PG Care Time/CCT Total # of Minutes Spent Total Time Spent with Patient: Total time spent is greater than 50% in coordination of care (as documented) at patient's floor/unit and/or counseling patient: Coding Level of Care Code 19552 SUB INP/OBS CARE 3/50MIN Diagnoses Back pain M54.9 Compression fracture of L1 lumbar vertebra S32.010A Chest pain R07.9 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
--- NOTE | 2023-02-21 09:46 | Magnetic Resonance Report ---
MR lumbar spine wo/w con CLINICAL HISTORY: 67 years-old Female with L1 fx, hx met ovarian ca, eval pathological fx. Acute low back pain in a patient with history of ovarian carcinoma and prior lumbar compression deformities. COMPARISON: CT abdomen and pelvis of same day, and also 02/24/2022, MRI lumbar spine 09/10/2015. TECHNIQUE: Multiplanar, multi sequence MRI of the lumbar spine was performed both with and without th e use of 8.5 cc Gadavist. FINDINGS: [employer] Cal[employer]er localizer images demonstrate no gross extraspinal abnormality. Susceptibility artifact related to the right hip ORIF hardware. Conus medullaris terminates at T12-L1. Questioned edema overlying the mid sacrum is likely artifactual. Chronic L2 and L3 compression deformities demonstrate mild likely degenerative marrow superior endplate Schmorl's nodes and no significant retropulsion. There is an ac tommie L1 compression deformity which demonstrates approximately 50% central vertebral body height loss without significant retropulsion. Mild likely degenerative bone marrow edema at T11 and T12 with smal l superior endplate Schmorl's node at T11 with moderate surrounding marrow edema. Mild marrow edema i nvolves the left pedicles and facets at L4-L5, likely reactive. Acute/subacute appearing right L2 tra nsverse process fracture. Corresponding enhancement is noted within the areas of described marrow edema. T12-L1: Ligamentum flavum thickening with moderate facet arthrosis. No central canal or neural pretty inal narrowing. L1-L2: Spondylitic spurring with small circumferential annular disc bulge and posterior disc osteoph yte complex. Ligamentum flavum thickening with moderate facet arthrosis. Mild bilateral neural forami nal narrowing. The central canal is patent. L2-L3: Spondylitic spurring with small circumferential annular disc bulge. Ligamentum flavum thicken ing with moderate facet arthrosis. The central canal and right neural foramen are patent. Mild left n eural foraminal narrowing. L3-L4: Spondylitic spurring with small posterior annular disc bulge. Ligamentum flavum thickening wi th severe facet arthrosis. The central canal is patent. Mild inferior bilateral neural foraminal narr owing. L4-L5: Mild intervertebral disc space narrowing with spondylitic spurring. Small circumferential mitra ular disc bulge, eccentric to the left with annular fissure. Ligamentum flavum thickening with severe facet arthrosis, small right and moderate left facet effusions. AP dimension of the thecal sac measu res 6 mm. Moderate to severe central canal stenosis with mild to moderate right and moderate left lat eral recess narrowing. Mild right with moderate left neural foraminal narrowing. L5-S1: Mild intervertebral disc space narrowing and spondylitic spurring with small circumferential annular disc bulge, eccentric to the right. Ligamentum flavum thickening with severe facet arthrosis, trace left and moderate right facet effusions. Mild central canal stenosis, AP dimension of the thec al sac measuring 9 mm. Mild left with mild to moderate right neural foraminal narrowing. There is at least mild narrowing of the right lateral recess. IMPRESSION: 1. Acute appearing L1 compression deformity with 50% vertebral body height loss and no significant re tropulsion. 2. Superior endplate Schmorl's node at T11 with moderate marrow edema, likely acute or subacute. 3. Chronic L2 and L3 compression deformities. 4. Areas of enhancement within the thoracolumbar spine are likely reactive/degenerative. No definite marrow replacing process identified. 5. Discogenic degeneration with spondylitic spurring and facet arthrosis as above resulting in multil evel neural foraminal narrowing with central canal stenosis at L4-L5 and L5-S1. 6. Acute/subacute right L2 transverse process fracture. ACT 112: Negative or not required by law. The above report was generated using voice recognition software. It may contain grammatical, syntax o r spelling errors. Dictated: 02/21/2023 8:52 AM Transcribed: 02/21/2023 9:30 AM Mauricio [id number] Electronically signed by: Mauro Marlow M.D. 02/21/2023 9:44 AM
[2023-02-21] MEDS: PYRIDOXINE HCL 50 MG TAB PO SCH (09:59)
--- NOTE | 2023-02-21 10:18 | Magnetic Resonance Report ---
MR thoracic spine wo/w con CLINICAL HISTORY: t8 fx, eval hx met disease TECHNIQUE: Multiplanar sequences through the thoracic spine were obtained, without and with intraveno us contrast. Comparison: None available at the time of this dictation. FINDINGS: Multilevel degenerative changes are seen. There is a compression deformity in T8 with edema and enhan cement of the vertebral body and approximately 2 mm retropulsion, likely representing an acute pathol ogic fracture. Additional foci of enhancement are seen throughout the spine compatible with bony meta static disease, most prominent at L1 and T11. The spinal canal and neural foramina are patent. Multilevel disc disease is seen without significant canal stenosis. There is suggestion of moderate n euroforaminal stenosis at the level of T8-T9. IMPRESSION: Scattered enhancing foci are seen in the spine concerning for bony metastatic disease with compressio n deformity at T8 with minimal retropulsion compatible with pathologic fracture. There is physician a moderate neuroforaminal stenosis at this level. ACT 112: Negative or not required by law. Electronically signed by: Teo Hartman M.D. 02/21/2023 10:16 AM
--- NOTE | 2023-02-21 10:20 | XRay Report ---
XR thoracic spine 3V routine CLINICAL HISTORY: back pain TECHNIQUE: 3 views of the thoracic spine were obtained. Comparison: Comparison is made to MRI thoracic spine 02/21/[address] chest 02/24/2022 FINDINGS: A right port catheter Anterior wedge deformity is noted at T8 which is new from CT chest performed . Degenerative changes are seen in the thoracic spine. Alignment appears unremarkable. Prevertebral soft tissues are within normal limits. IMPRESSION: Compression fracture of the T8 vertebral body of unknown chronicity but favored to be acute given omar earance on MRI. ACT 112: Negative or not required by law. Electronically signed by: Teo Hartman M.D. 02/21/2023 10:18 AM
[2023-02-21 10:44] LABS: Hematocrit (blood only) 38.8 % (37.0-47.0); Hemoglobin 13.2 g/dl (12.0-16.0); Mean Corpuscular Hemoglobin 33.3 pg (25.0-34.0); Mean Platelet Volume 9.8 fL (9.4-12.4); Platelet Count 217 K/uL (130-400); RDW Coefficient of Variation 13.5 % (11.5-14.5); RDW Standard Deviation 49.1 fL (36.4-46.3); Red Blood Count 3.96 M/uL (4.20-5.40); White Blood Count 4.86 K/ul (4.8-10.8)
[2023-02-21 11:11] LABS: BUN Creatinine Ratio 10.1 (10-20); Calcium 9.3 mg/dl (8.6-10.3); Est GFR (African American) 68.8 ml/min; Est GFR (Non-African American) 59.4 ml/min; Magnesium 1.9 mg/dl (1.7-2.4); Phosphorus 3.7 mg/dl (2.5-4.9); Potassium 3.9 mmol/L (3.5-5.1)
--- NOTE | 2023-02-21 11:19 | XRay Report ---
XR lumbar spine 2-3V HISTORY: 67 years-old Female back pain acute mid to low back pain. COMPARISON: MRI thoracic and lumbar spine studies of same day. TECHNIQUE: 2 views of the lumbar spine FINDINGS: Chronic L2 and L3 compression deformities. Acute L1 compression fracture with approximately 50% verte bral body height loss is unchanged from the comparison MRI. Mild dextroscoliosis. Spondylitic spurrin g with facet arthrosis is unchanged. There is a 2.2 cm calcification within the abdominal left upper quadrant. Moderate fecal retention of the rectum and sigmoid. IMPRESSION: 1. Acute 50% superior endplate compression deformity of the L1 vertebral body without significant ret ropulsion is unchanged from yesterday's lumbar spine MRI. 2. Chronic L2 and L3 compression fractures. 3. Degenerative changes as above. 4. Dextroscoliosis. ACT 112: Negative or not required by law. The above report was generated using voice recognition software. It may contain grammatical, syntax o r spelling errors. Electronically signed by: Mauro Marlow M.D. 02/21/2023 11:17 AM
[2023-02-21] MEDS ORDERED: LORazepam 0.5 MG TAB PO ONE (15:00)
--- NOTE | 2023-02-21 15:38 | Oncology Consultation ---
Date of Consultation February 21, 2023 Assessment & Plan (1) Nontraumatic compression fracture of T8 vertebra: (2) Nontraumatic compression fracture of L1 vertebra: (3) Ovarian cancer: (4) Deep vein thrombosis (DVT) of iliac vein of right lower extremity: Plan Pleasant 67-year-old female with history of metastatic ovarian cancer for which she is s/p chemotherapy and debulking with complete pathologic response. Admitted with back pain and found to have scattered enhancing foci in the spine concerning for bony metastatic disease -Although possible, bone metastasis from ovarian cancer is extremely rare especially since CT chest, abdomen and pelvis does not show any convincing e vidence of recurrence. As such, recommend obtaining bone scan to further evaluate bone lesions -Agree with plan by orthopedic surgery for kyphoplasty with biopsy to confirm metastasis as well as identify primary malignancy since bone metastasis in ovarian cancer is rare -Recommend checking Ca1 25 -If she is confirmed to have recurrent ovarian cancer, she would be considered [place] sensitive since she has been off chemotherapy for more than 6 months and would be a candidate for [place] based therapy History of Present Illness Reason for Consultation: Ovarian cancer Attending Physician: Eduardo Lanier History of Present Illness Very pleasant 67-year-old female with 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 She subsequently underwent laparotomy, BSO, omentectomy, small bowel resection, ANABELL, appendectomy, hernia repair at [facility] on 07/26/2022 with pathology revealing complete response. Patient has since been on observation. She presented to the ER at [facility] with complaints of worsening back pain. CTA chest and CT abdomen and pelvis revealed acute to subacute appearing L1 compression deformity with mild paravertebral edema, T8 compression deformity, bladder distention as well as indeterminant 1.8 cm ovoid hyperdense structure within central hypodensity seen in the left pelvis posterior to the bladder possibly representing postsurgical changes. MRI lumbar spine revealed acute appearing L1 compression deformity with 50% vertebral body height loss, superior endplates Schmorl's node at T11 with moderate marrow edema, chronic L2/L3 compression deformities. MRI thoracic spine revealed scattered enhancing foci in the spine concerning for bony metastatic disease with compression deformity at T8 with minimal retropulsion compatible with pathologic fracture. She was evaluated by orthopedic surgery earlier today who recommended kyphoplasty with biopsy of at least T8/L1. Of note, she has a history of right iliac vein DVT for which she is s/p IVC filter placement and is currently on Eliquis She complains of pain involving lower back, bilateral lower ribs. Denies nausea, vomiting, abdominal bloating, change in bowel habits or any other issues Allergies Allergy/AdvReac Type Severity Reaction Status Date / Time ibuprofen Allergy Severe Anaphylaxis Verified 02/20/23 14:39 codeine Allergy Intermediate Rash Verified 02/20/23 14:39 Home Medications Medication Instructions Recorded Confirmed Type Walking Cane #1 ea 06/22/20 11/02/22 Rx sennosides 8.6 mg-docusate sodium 1 tab PO HS 01/05/22 02/20/23 History 50 mg tablet (Senokot-S) tramadol 50 mg tablet 50 mg PO Q8H PRN Pain 01/05/22 02/20/23 History amiodarone 200 mg tablet 200 mg PO DAILY 90 days #90 tabs 04/20/22 02/20/23 Rx apixaban 5 mg tablet (Eliquis) 5 mg PO BID #180 tabs 04/20/22 02/20/23 Rx rosuvastatin 10 mg tablet 10 mg PO HS #90 tabs 04/20/22 02/20/23 Rx levothyroxine 175 mcg tablet 175 mcg PO QAM 02/20/23 02/20/23 History Patient History Medical History Atrial fibrillation with RVR Critical airway Deep vein thrombosis (DVT) of iliac vein of right lower extremity Encounter for pre-operative examination Foreign body accidentally left during a procedure Fracture of pubic ramus Hematoma of neck Hypercholesteremia Neck swelling Paroxysmal atrial fibrillation Primary cancer of ovary with widespread metastatic disease Small bowel obstruction Surgical History History of abdominal surgery History of bowel resection History of total right hip arthroplasty Social History Smoking Status: Former smoker Tobacco Type: E-cigarettes / Vaping Second Hand Exposure: Yes; Hx Alcohol Use: Yes Alcohol type: beer Hx Substance Use: No Preferred Language: Belarusian Communication Ability: Effective Nightclub Manager Required: No Beliefs That Will Affect Care: None Current Living Situation: Spouse Other Information That Helps Us Care for You: No Feels Safe at Home: Yes Safety Concerns: Feels Safe At This Time Assistive Devices: Cane and Walker Review of Systems Review of Systems: All systems reviewed & are unremarkable except as noted in Subjective Results & Data Vital Signs (Past 12 Hours) Vital Signs Temp Pulse Resp BP Pulse Ox O2 Del Method 02/21/23 07:28 36.8 C 62 18 113/64 97 Room Air
--- NOTE | 2023-02-21 16:32 | Orthopedic Consultation ---
Date of Consultation February 21, 2023 Assessment & Plan (1) Nontraumatic compression fracture of T8 vertebra: Assessment T8 and L1 compression fractures. Plan at this time I discussed with the patient and her family reviewing her imaging and possible treatment options. There is some concern that she has a pathologic fracture of T8 and L1 with varying degrees of metastasis throughout the spine. I described kyphoplasty with biopsy involving at least T8 and L1 to help with her pain and further help with the diagnosis. She is very interested in this. She is currently on anticoagulation and will need to have this held before any surgery could be entertained. She understands agrees. History of Present Illness Reason for Consultation: Thoracic back pain Attending Physician: Eduardo Lanier History of Present Illness This a very pleasant 67-year-old female presents last evening with worsening back pain. Her family is in the room with her during our discussion. Patient denies any specific trauma fall or event. She states the pain has been present for approximately a week. She denies any numbness or tingling or radicular complaints. Allergies Allergy/AdvReac Type Severity Reaction Status Date / Time ibuprofen Allergy Severe Anaphylaxis Verified 02/20/23 14:39 codeine Allergy Intermediate Rash Verified 02/20/23 14:39 Home Medications Medication Instructions Recorded Confirmed Type Walking Cane #1 ea 06/22/20 11/02/22 Rx sennosides 8.6 mg-docusate sodium 1 tab PO HS 01/05/22 02/20/23 History 50 mg tablet (Senokot-S) tramadol 50 mg tablet 50 mg PO Q8H PRN Pain 01/05/22 02/20/23 History amiodarone 200 mg tablet 200 mg PO DAILY 90 days #90 tabs 04/20/22 02/20/23 Rx apixaban 5 mg tablet (Eliquis) 5 mg PO BID #180 tabs 04/20/22 02/20/23 Rx rosuvastatin 10 mg tablet 10 mg PO HS #90 tabs 04/20/22 02/20/23 Rx levothyroxine 175 mcg tablet 175 mcg PO QAM 02/20/23 02/20/23 History Patient History Medical History Atrial fibrillation with RVR Critical airway Deep vein thrombosis (DVT) of iliac vein of right lower extremity Encounter for pre-operative examination Foreign body accidentally left during a procedure Fracture of pubic ramus Hematoma of neck Hypercholesteremia Neck swelling Paroxysmal atrial fibrillation Primary cancer of ovary with widespread metastatic disease Small bowel obstruction Surgical History History of abdominal surgery History of bowel resection History of total right hip arthroplasty Social History Smoking Status: Former smoker Tobacco Type: E-cigarettes / Vaping Second Hand Exposure: Yes; Hx Alcohol Use: Yes Alcohol type: beer Hx Substance Use: No Preferred Language: Kazakh Communication Ability: Effective 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 She has reasonable strength testing of her lower extremities. There is no abnormal skin markings. Results & Data Vital Signs (Past 12 Hours) Vital Signs Temp Pulse Resp BP Pulse Ox O2 Del Method 02/21/23 07:28 36.8 C 62 18 113/64 97 Room Air
[2023-02-21] MEDS ORDERED: Heparin IV Adult Wt-Based Standard *NO* Bolus Protocol IV SCH (17:30)
[2023-02-21] MEDS ORDERED: HEPARIN SODIUM/DEXTROSE 25,000 UNITS/500 ML BAG IV SCH (20:00)
[2023-02-21] MEDS: DOCUSATE SODIUM/SENNA 50/8.6MG TAB PO SCH (20:41)
[2023-02-21] MEDS: POLYETHYLENE (MIRALAX) 17 GM PACK PO PRN (20:41)
[2023-02-21] MEDS: LIDOCAINE 5% 1 PATCH TD SCH (21:45)
[2023-02-21] MEDS: ROSUVASTATIN CALCIUM 10 MG TAB PO SCH (21:46)
[2023-02-22] MEDS: MoRPHine SULFATE 4 MG/ML 1 ML CARP\\VIAL IV PRN ×5 (01:21→20:28)
[2023-02-22] MEDS ORDERED: LORazepam 0.5 MG TAB PO STA (01:45)
--- NOTE | 2023-02-22 05:11 | Electrocardiogram Report ---
Test Reason : Blood Pressure : / mmHG Vent. Rate : 072 BPM Atrial Rate : 072 BPM P-R Int : 120 ms QRS Dur : 082 ms QT Int : 404 ms P-R-T Axes : 019 001 074 degrees QTc Int : 442 ms Poor data quality, interpretation may be adversely affected Normal sinus rhythm Septal infarct , age undetermined Abnormal ECG When compared with ECG of 09-JAN-2022 15:19, Septal infarct is now Present Confirmed by Robles Combs ([id number]) on 02/22/2023 5:11:20 AM Referred By: REFERRED SELF Confirmed By:Robles Combs
[2023-02-22] MEDS: LEVOTHYROXINE SODIUM 175 MCG TABLET PO SCH (06:14)
[2023-02-22 07:47] LABS: Hematocrit (blood only) 35.3 % (37.0-47.0); Hemoglobin 11.9 g/dl (12.0-16.0); Mean Corpuscular Hemoglobin 33.2 pg (25.0-34.0); Mean Corpuscular Hgb Conc 33.7 g/dL (32.0-36.0); Mean Corpuscular Volume 98.6 fL (80.0-100.0); Mean Platelet Volume 9.8 fL (9.4-12.4); Platelet Count 219 K/uL (130-400); RDW Coefficient of Variation 13.4 % (11.5-14.5); RDW Standard Deviation 48.8 fL (36.4-46.3); Red Blood Count 3.58 M/uL (4.20-5.40); White Blood Count 5.37 K/ul (4.8-10.8)
[2023-02-22 08:06] LABS: Albumin Globulin Ratio 1.7 (0.9-2); Albumin Level 3.8 gm/dl (3.4-5.0); BUN Creatinine Ratio 11.2 (10-20); Bilirubin,Total 0.4 mg/dl (0.2-1.0); Creatinine Clr Calc Pharmacy 52.9 ml/min; Est GFR (African American) 56.8 ml/min; Globulin 2.2 gm/dl (2.5-4.0); Potassium 4.1 mmol/L (3.5-5.1)
[2023-02-22 08:12] LABS: Prothrombin Time 10.9 Seconds (9.0-12.0)
[2023-02-22] MEDS: APIXABAN 5 MG TABLET PO SCH ×2 (09:24→20:24)
[2023-02-22] MEDS: CHOLECALCIFEROL 5,000 UNITS 125 MCG TAB PO SCH (09:25)
[2023-02-22] MEDS: AMIODARONE 200 MG TAB PO SCH (09:25)
[2023-02-22] MEDS: PYRIDOXINE HCL 50 MG TAB PO SCH (09:25)
--- NOTE | 2023-02-22 09:54 | Orthopedic Progress Note ---
Date of Service February 22, 2023 Assessment & Plan (1) Compression fracture of L1 lumbar vertebra: Plan: A discussion today with the patient regarding possible kyphoplasty with biopsy of the T8 and L1 vertebral bodies. She is currently on Eliquis and would need to be weaned from her anticoagulation medication to safely perform surgery. We discussed surgery possibly on Sunday. Patient understands and agrees. We will subsequently plan for surgery Sunday if possible. Admission and Anticipated Discharge Date Admission Date: February 20, 2023 Subjective Patient continues to have fairly incapacitating back pain Physical Exam Physical Exam: Patient is up in bed. She is cooperative exam. She is neurologically intact. Results & Data Vital Signs (Past 12 Hours) Vital Signs Temp Pulse Resp BP Pulse Ox O2 Del Method 02/22/23 08:29 36.7 C 66 18 97/60 L 95 Room Air
[2023-02-22] MEDS: traMADol HCL 50 MG TABLET PO PRN (10:16)
--- NOTE | 2023-02-22 15:38 | Hospitalist Progress Note ---
Date of Service February 22, 2023 Assessment & Plan (1) Back pain: Plan: ongoing pain for a week, worsening imaging on admission noted L1/T8 compression fracture with no obvious trauma/injury in patient w/ hx metastatic ovarian ca, supposedly in remission (note, thyroid nodule noted by PCP/hypothyroidism w recent adjustments as below) MRI of lumbar & thoracic spine - scattered enhancing foci in spine concerning for bony metastatic disease with compression deformity at T8 with minimal retropulsion compatible with pathologic fracture full reports above Dr Mccurdy consulted - appreciate recs/assistance Dr Scott consulted - appreciate recs/assistance Ordered CA125 (pending) Ordered a full body bone scan Pain control, bowel regimen as needed - Tylenol/Tramadol/morphine as needed Patient is still requiring IV Morphine for pain control Heating pad/lidocaine patches PT/OT consultations to be undertaken (2) Compression fracture of L1 lumbar vertebra: Plan: Compression fracture T8 and L1 MRI with concern for bony mets Dr Mccurdy discussed kyphoplasty and biopsy to help with pain and also to help delineate a diagnosis Patient is aware needs to hold the Eliquis She is aware of the risk of this and also risk of surgery and would like to proceed Spoke directly to Dr Mccurdy and may plan for surgery Sunday Discussed with pharmacy and will need to stop the Eliquis for 72 hours prior to the surgery. Will hold Eliquis beginning tomorrow AM. Will add SCDs tomorrow (3) Chest pain: Plan: ongoing chest/back pain x 1 week CTA NEGATIVE for PE trop 3.4 on initial check, EKG NSR. Last ECHO 2019 w/ LV systolic function normal. Moderate AI, trace-mild MR/TR Suspect pain related to her fractures - only pain with a deep inspiration (4) Primary cancer of ovary with widespread metastatic disease: Plan: supposedly in remission imaging for eval as above for concerns pathological fracture Note: There is an indeterminant 1.8 cm ovoid hyperdense structure with central hypodensity seen in the left pelvis posterior to the bladder. This is new from previous and may be on a postsurgical basis. Attention at follow-up is recommended -will need f/u She also notes R thyroid nodule her PCP is keeping an eye on as well Possibly may need a repeat PET scan vs U/S pelvis Last PET scan was 2019 Consulted oncology, Dr Rocha who ordered Ca125 and bone scan and plans for a PET scan as out patient (5) PAF (paroxysmal atrial fibrillation): Plan: on Eliquis 5mg BID, amiodarone 200mg daily. follows with Dr Potter Currently in NSR on monitor/EKG no need for monitoring on telemetry at this time - however, repeating TSH/adjustment of Synthroid as needed below Also on Crestor 10mg daily for HLD, continued (6) Deep vein thrombosis (DVT) of iliac vein of right lower extremity: Plan: hx of such and IVC filter since removed eliquis 5mg BID May have surgery Sunday and per Dr Mccurdy would hold Eliquis Sunday, Sunday and Sunday (per pharmacy off x 72 hr) and then proceed with surgery Sunday (7) Hypothyroidism: Plan: continue Synthroid 175mcg daily for now, but prior TSHs 38 in August when she was dx afib/rvr and place on synthroid TSH 15 TSH 21 in November in our system - Of note, she states her Synthroid was just adjusted to 175mcg in the past 1-2 days. When inquired about how/when she takes this medication, she notes she has been taking this with her other medications. Education provided on correct use. Will continue the 175 mcg dose for now Also had recent U/S thyroid for a nodule and may eventually need FNA of the nodule, this is being followed by her PCP Plan Continued inpatient stay for pain control, mri lumbar spine with changes concerning for bony metastatic disease Kyphoplasty with bx of T8, L1 for improvement of pain and to delineate a diagnosis - planned for Sunday Ca125 and bone scan pending Admission and Anticipated Discharge Date Admission Date: February 22, 2023 Subjective Patient seen this afternoon, her daughter and grandson are at her bedside. She is still having significant and debilitating back pain, requiring IV pain medications. She denies any chest pain, but does admit to pain with taking a deep breath due to the thoracic back pain. Review of Systems Constitutional: + weight gain; no fever, no chills and no weight loss Respiratory: + pain on inspiration; no cough, no chest congestion and no hemoptysis Cardiovascular: no chest pain, no palpitations, no edema and no calf pain Gastrointestinal: no abdominal pain, no nausea, no vomiting and no change in bowel habits Genitourinary: no dysuria, no difficulty urinating, no urinary frequency and no urinary hesitancy Musculoskeletal: + back pain; no neck pain Integumentary: no rash, no lesions and no new lesions Neurologic: no falls, no paralysis, no loss of sensation, no tingling, no numbness, no radiating pain and no headache(s) Psychiatric: + depression and + anxiety; no change in appetite, no confusion, no hallucinations and no auditory hallucinations Endocrine: + fatigue + weight gain and hypothyroidism (recently started on increased dose) Physical Exam Constitutional: WD/WN, vitals as above Neck: trachea midline, no thyromegaly Respiratory: normal respiratory effort, lungs clear to auscultation Cardiovascular: RRR, no murmur, no edema Gastrointestinal (Abdomen): normal bowel sounds, soft, nontender, no hepatosplenomegaly Musculoskeletal: tender to palpation thoracic spine moves all extremities Psychiatric: A+Ox3, euthymic affect Results & Data Results & Data Vital Signs (Past 12 Hours) Vital Signs Temp Pulse Resp BP Pulse Ox O2 Del Method 02/22/23 15:29 36.5 C 78 18 98/58 L 94 Room Air 02/22/23 08:29 36.7 C 66 18 97/60 L 95 Room Air Laboratory Results Abnormal lab results 02/22/23 02/22/23 Range/Units 07:03 07:03 RBC 3.58 L (4.20-5.40) M/uL Hgb 11.9 L (12.0-16.0) g/dl Hct 35.3 L (37.0-47.0) % RDW Std Deviation 48.8 H (36.4-46.3) fL Globulin 2.2 L (2.5-4.0) gm/dl PG Care Time/CCT Total # of Minutes Spent Total Time Spent with Patient: Total time spent is greater than 50% in coordination of care (as documented) at patient's floor/unit and/or counseling patient: Coding Level of Care Code 25946 SUB INP/OBS CARE 2/35MIN Diagnoses Back pain M54.9 Compression fracture of L1 lumbar vertebra S32.010A Chest pain R07.9 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
--- NOTE | 2023-02-22 17:27 | Nuclear Medicine Report ---
WHOLE-BODY NUCLEAR BONE SCAN CLINICAL HISTORY: Compression fractures. Concern for metastatic disease. Reported history of ovarian cancer. COMPARISON STUDY: CT scan of the chest, abdomen, and pelvis dated 02/20/2023. MRI of the thoracic spin e dated 02/21/2023. MRI of the lumbar spine dated 02/20/2023.. TECHNIQUE: Three hours following the IV administration of 25.5 mCi of technetium 99m MDP, whole body nuclear bone scan was performed in the anterior and posterior projections. FINDINGS: There are no abnormal foci of tracer position typical in appearance for bony metastatic disease. There are foci of intense tracer uptake identified in the bodies of T8 and L1 at the site of known ac tommie to subacute compression fractures. There is milder focal tracer uptake within the body of T11 cor responds to marrow edema and a Schmorl's node when correlated with the recent MRI. Additional foci of low-level activity in the spine are typical for degenerative change. Foci typically degenerative uptake are identified in the shoulders, hips, knees, and right ankle. There is an indeterminate focus of low-level uptake in the right proximal femoral shaft. There is expected excreted activity within the renal collecting system and bladder. IMPRESSION: 1. There is no clear scintigraphic evidence of bony metastatic disease. 2. Foci of intense tracer uptake within T8 and L1 are consistent with known compression fractures. Th chelsie are likely osteoporotic. 3. An indeterminate focus of low level activity is seen in the right femoral shaft. Radiographic steven elation is recommended. ACT 112: Negative or not required by law. Electronically signed by: Sarath Roy M.D. 02/22/2023 5:25 PM
[2023-02-22] MEDS ORDERED: LORazepam 0.5 MG TAB PO PRN (17:48)
[2023-02-22] MEDS: ROSUVASTATIN CALCIUM 10 MG TAB PO SCH (20:24)
[2023-02-22] MEDS: POLYETHYLENE (MIRALAX) 17 GM PACK PO PRN (20:24)
[2023-02-22] MEDS: DOCUSATE SODIUM/SENNA 50/8.6MG TAB PO SCH (20:24)
[2023-02-22] MEDS: LIDOCAINE 5% 1 PATCH TD SCH (20:24)
[2023-02-23] MEDS: MoRPHine SULFATE 4 MG/ML 1 ML CARP\\VIAL IV PRN ×4 (02:09→19:42)
[2023-02-23] MEDS: LEVOTHYROXINE SODIUM 175 MCG TABLET PO SCH (06:12)
[2023-02-23] MEDS ORDERED: MAGNESIUM HYDROXIDE SUSP 30 ML UDC PO PRN (07:47)
[2023-02-23] MEDS: CHOLECALCIFEROL 5,000 UNITS 125 MCG TAB PO SCH (08:16)
[2023-02-23] MEDS: AMIODARONE 200 MG TAB PO SCH (08:16)
[2023-02-23] MEDS: PYRIDOXINE HCL 50 MG TAB PO SCH (08:16)
--- NOTE | 2023-02-23 13:02 | XRay Report ---
XR femur RT 2V routine CLINICAL HISTORY: abnormal bone scan. Follow-up abnormal rotation uptake within the right femur. COMPARISON STUDY: Nuclear medicine bone scan 02/22/2023. Abdomen and pelvis CT 02/20/2023. FINDINGS: The low level radiotracer uptake within the right femoral shaft seen on the prior bone scan corresponds to expected periprosthetic radiotracer uptake status post internal fixation of an old, h ealed right femoral fracture. No acute fracture or dislocation within the right femur. The hardware a ppears intact. No abnormal periprosthetic lucency. No suspicious osseous lesions identified. Or postt raumatic changes also noted within the proximal tibia. Mild to moderate osteoarthritis at the right k nee. Vascular calcifications are noted. IMPRESSION: 1. The low level radiotracer uptake within the right femoral shaft seen on the prior bone scan corres ponds to expected periprosthetic radiotracer uptake status post internal fixation of an old, healed r ight femoral fracture. 2. No suspicious osseous lesions. 3. No acute fracture or dislocation. ACT 112: Negative or not required by law. Electronically signed by: Jesus Alberto Hollis M.D. 02/23/2023 1:00 PM
--- NOTE | 2023-02-23 15:56 | Hospitalist Progress Note ---
Date of Service February 23, 2023 Assessment & Plan (1) Back pain: Plan: ongoing pain for a week, worsening imaging on admission noted L1/T8 compression fracture with no obvious trauma/injury in patient w/ hx metastatic ovarian ca, supposedly in remission (note, thyroid nodule noted by PCP/hypothyroidism w recent adjustments as below) MRI of lumbar & thoracic spine - scattered enhancing foci in spine concerning for bony metastatic disease with compression deformity at T8 with minimal retropulsion compatible with pathologic fracture full reports above Dr Mccurdy consulted - appreciate recs/assistance Dr Scott consulted - appreciate recs/assistance Ordered CA125 - 7 Full Body Bone Scan - No evidence of bony mets, T8 and L1 compression likely osteoporotic, indeterminate foci low level activity in Right Femur Ordered Xray right femur Pain control, bowel regimen as needed - Tylenol/Tramadol/morphine as needed Patient is still requiring IV Morphine for pain control Heating pad/lidocaine patches PT/OT consultations to be undertaken (2) Compression fracture of L1 lumbar vertebra: Plan: Compression fracture T8 and L1 MRI with concern for bony mets Bone scan revealed no evidence of bony mets, T8 and L1 compression fractures likely osteoporotic Dr Mccurdy discussed kyphoplasty and biopsy to help with pain and also to help delineate a diagnosis Patient is aware needs to hold the Eliquis She is aware of the risk of this and also risk of surgery and would like to proceed Spoke directly to Dr Mccurdy and may plan for surgery Sunday Discussed with pharmacy and will need to stop the Eliquis for 72 hours prior to the surgery. Will hold Eliquis beginning Sunday02/23/23 Will add SCDs today (3) Chest pain: Plan: ongoing chest/back pain x 1 week CTA NEGATIVE for PE trop 3.4 on initial check, EKG NSR. Last ECHO 2019 w/ LV systolic function normal. Moderate AI, trace-mild MR/TR Suspect pain related to her fractures - only pain with a deep inspiration (4) Primary cancer of ovary with widespread metastatic disease: Plan: supposedly in remission imaging for eval as above for concerns pathological fracture Note: There is an indeterminant 1.8 cm ovoid hyperdense structure with central hypodensity seen in the left pelvis posterior to the bladder. This is new from previous and may be on a postsurgical basis. Attention at follow-up is recommended -will need f/u She also notes R thyroid nodule her PCP is keeping an eye on as well Possibly may need a repeat PET scan Last PET scan was 2019 Bone scan with abnormal foci right Femur Check Xray Right Femur - revealed old, healed right femoral fracture this corresponds to the abnormal uptake seen on bone scan Consulted oncology, Dr Rocha who ordered Ca125 - 7 and bone scan revealed no evidence of bony mets, compression fractures likely osteoporotic Plans for a PET scan as out patient (5) PAF (paroxysmal atrial fibrillation): Plan: on Eliquis 5mg BID, amiodarone 200mg daily. follows with Dr Potter Currently in NSR on monitor/EKG no need for monitoring on telemetry at this time - however, repeating TSH/adjustment of Synthroid as needed below Also on Crestor 10mg daily for HLD, continued (6) Deep vein thrombosis (DVT) of iliac vein of right lower extremity: Plan: hx of such and IVC filter since removed eliquis 5mg BID Kyphoplasty and biopsy Sunday with Dr Mccurdy Holding Eliquis Sunday, Sunday and Sunday (per pharmacy off x 72 hr) (7) Hypothyroidism: Plan: continue Synthroid 175mcg daily for now, but prior TSHs 38 in August when she was dx afib/rvr and place on synthroid TSH 15 TSH 21 in November in our system - Of note, she states her Synthroid was just adjusted to 175mcg in the past 1-2 days. When inquired about how/when she takes this medication, she notes she has been taking this with her other medications. Education provided on correct use. Will continue the 175 mcg dose for now Also had recent U/S thyroid for a nodule and may eventually need FNA of the nodule, this is being followed by her PCP Plan Continued inpatient stay for pain control, mri lumbar spine with changes concerning for bony metastatic disease Kyphoplasty with bx of T8, L1 for improvement of pain and to delineate a diagnosis - planned for Sunday Ca125 - 7 Bone Scan with no evidence of bony mets, fracture likely osteoporotic Abnormal foci right femur - check X ray Spoke with radiology Dr Roy regarding 1.8cm ovoid structure left pelvis posterior bladder - stated an U/S pelvis would not add anything, recommended to follow with PCP/ oncology regarding repeat imaging in the future to document s tability. Admission and Anticipated Discharge Date Admission Date: February 22, 2023 Subjective Patient seen this afternoon, her daughter and grandson are at her bedside. She is still having significant back pain, requiring IV pain medications. She denies any chest pain, but does admit to pain with taking a deep breath due to the thoracic back pain. She denies any urine problems. She is passing flatus but no BM Review of Systems Constitutional: + weight gain; no fever, no chills and no weight loss Respiratory: + pain on inspiration; no cough, no chest congestion and no hemoptysis Cardiovascular: no chest pain, no palpitations, no edema and no calf pain Gastrointestinal: no abdominal pain, no nausea, no vomiting and no change in bowel habits Genitourinary: no dysuria, no difficulty urinating, no urinary frequency and no urinary hesitancy Musculoskeletal: + back pain; no neck pain Integumentary: no rash, no lesions and no new lesions Neurologic: no falls, no paralysis, no loss of sensation, no tingling, no numbness, no radiating pain and no headache(s) Psychiatric: + depression and + anxiety; no change in appetite, no confusion, no hallucinations and no auditory hallucinations Endocrine: + fatigue + weight gain and hypothyroidism (recently started on increased dose) Physical Exam Constitutional: WD/WN, vitals as above Neck: trachea midline, no thyromegaly Respiratory: normal respiratory effort, lungs clear to auscultation Cardiovascular: RRR, no murmur, no edema Gastrointestinal (Abdomen): normal bowel sounds, soft, nontender, no hepatosplenomegaly Psychiatric: A+Ox3, euthymic affect Results & Data Results & Data Vital Signs (Past 12 Hours) Vital Signs Temp Pulse Resp BP Pulse Ox O2 Del Method 02/23/23 14:58 36.8 C 81 14 123/71 97 Room Air 02/23/23 09:00 Room Air 02/23/23 08:12 36.7 C 64 14 113/70 94 Room Air PG Care Time/CCT Total # of Minutes Spent Total Time Spent with Patient: Total time spent is greater than 50% in coordination of care (as documented) at patient's floor/unit and/or counseling patient: Coding Level of Care Code 54755 SUB INP/OBS CARE 2/35MIN Diagnoses Back pain M54.9 Compression fracture of L1 lumbar vertebra S32.010A Chest pain R07.9 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
[2023-02-23] MEDS: POLYETHYLENE (MIRALAX) 17 GM PACK PO PRN (19:42)
[2023-02-23] MEDS: LIDOCAINE 5% 1 PATCH TD SCH (20:52)
[2023-02-23] MEDS: DOCUSATE SODIUM/SENNA 50/8.6MG TAB PO SCH (20:52)
[2023-02-23] MEDS: ROSUVASTATIN CALCIUM 10 MG TAB PO SCH (20:52)
[2023-02-24] MEDS: MoRPHine SULFATE 4 MG/ML 1 ML CARP\\VIAL IV PRN ×4 (02:36→21:17)
[2023-02-24] MEDS: LEVOTHYROXINE SODIUM 175 MCG TABLET PO SCH (06:01)
[2023-02-24 06:33] LABS: Hemoglobin 11.9 g/dl (12.0-16.0); Mean Corpuscular Hemoglobin 33.1 pg (25.0-34.0); Mean Corpuscular Volume 97.2 fL (80.0-100.0); Mean Platelet Volume 9.8 fL (9.4-12.4); Platelet Count 231 K/uL (130-400); RDW Coefficient of Variation 13.1 % (11.5-14.5); RDW Standard Deviation 47.1 fL (36.4-46.3); White Blood Count 4.53 K/ul (4.8-10.8)
[2023-02-24] MEDS: PYRIDOXINE HCL 50 MG TAB PO SCH (09:25)
[2023-02-24] MEDS: AMIODARONE 200 MG TAB PO SCH (09:25)
[2023-02-24] MEDS: CHOLECALCIFEROL 5,000 UNITS 125 MCG TAB PO SCH (09:25)
[2023-02-24] MEDS: traMADol HCL 50 MG TABLET PO PRN (10:11)
[2023-02-24] MEDS: POLYETHYLENE (MIRALAX) 17 GM PACK PO PRN (11:53)
--- NOTE | 2023-02-24 13:37 | Hospitalist Progress Note ---
Date of Service February 24, 2023 Assessment & Plan (1) Back pain: Plan: ongoing pain for a week, worsening imaging on admission noted L1/T8 compression fracture with no obvious trauma/injury in patient w/ hx metastatic ovarian ca, supposedly in remission (note, thyroid nodule noted by PCP/hypothyroidism w recent adjustments as below) Dr Mccurdy and Dr Rocha on consult appreciate their help and recommendations MRI of lumbar & thoracic spine - scattered enhancing foci in spine concerning for bony metastatic disease with compression deformity at T8 with minimal retropulsion compatible with pathologic fracture Ordered CA125 - 7 Full Body Bone Scan - No evidence of bony mets, T8 and L1 compression likely osteoporotic, indeterminate foci low level activity in Right Femur Ordered Xray right femur Pain control, bowel regimen as needed - Tylenol/Tramadol/morphine as needed Patient is still requiring IV Morphine for pain control Heating pad/lidocaine patches PT/OT consultations to be undertaken (2) Compression fracture of L1 lumbar vertebra: Plan: Compression fracture T8 and L1 MRI with concern for bony mets Bone scan revealed no evidence of bony mets, T8 and L1 compression fractures likely osteoporotic Dr Mccurdy discussed kyphoplasty and biopsy to help with pain and also to help delineate a diagnosis Patient is aware needs to hold the Eliquis She is aware of the risk of this and also risk of surgery and would like to proceed Spoke directly to Dr Mccurdy and may plan for surgery Sunday Discussed with pharmacy and will need to stop the Eliquis for 72 hours prior to the surgery. Will hold Eliquis beginning Sunday02/23/23 SCDs while in bed (3) Chest pain: Plan: ongoing chest/back pain x 1 week CTA NEGATIVE for PE trop 3.4 on initial check, EKG NSR. Last ECHO 2019 w/ LV systolic function normal. Moderate AI, trace-mild MR/TR Suspect pain related to her fractures - only pain with a deep inspiration Incentive spirometer q1H while awake (4) Primary cancer of ovary with widespread metastatic disease: Plan: supposedly in remission imaging for eval as above for concerns pathological fracture Note: There is an indeterminant 1.8 cm ovoid hyperdense structure with central hypodensity seen in the left pelvis posterior to the bladder. This is new from previous and may be on a postsurgical basis. Attention at follow-up is recommended -will need f/u She also notes R thyroid nodule her PCP is keeping an eye on as well Possibly may need a repeat PET scan Last PET scan was 2019 Bone scan with abnormal foci right Femur Check Xray Right Femur - revealed old, healed right femoral fracture this corresponds to the abnormal uptake seen on bone scan Consulted oncology, Dr Rocha who ordered Ca125 - 7 and bone scan revealed no evidence of bony mets, compression fractures likely osteoporotic Plans for a PET scan as out patient (5) PAF (paroxysmal atrial fibrillation): Plan: on Eliquis 5mg BID, amiodarone 200mg daily. follows with Dr Potter Currently in NSR on monitor/EKG no need for monitoring on telemetry at this time - however, repeating TSH/adjustment of Synthroid as needed below Also on Crestor 10mg daily for HLD, continued (6) Deep vein thrombosis (DVT) of iliac vein of right lower extremity: Plan: hx of such and IVC filter since removed eliquis 5mg BID Kyphoplasty and biopsy Sunday with Dr Mccurdy Holding Eliquis Sunday, Sunday and Sunday (per pharmacy off x 72 hr) (7) Hypothyroidism: Plan: continue Synthroid 175mcg daily for now, but prior TSHs 38 in August when she was dx afib/rvr and place on synthroid TSH 15 TSH 21 in November in our system - Of note, she states her Synthroid was just adjusted to 175mcg in the past 1-2 days. When inquired about how/when she takes this medication, she notes she has been taking this with her other medications. Education provided on correct use. Will continue the 175 mcg dose for now Also had recent U/S thyroid for a nodule and may eventually need FNA of the nodule, this is being followed by her PCP (8) Constipation: Plan: Added another dose of miralax today along with a dulcolax suppository if needed Encouraged to be up and OOB, adequate po fluid intake Plan Continued inpatient stay for pain control, mri lumbar spine with changes concerning for bony metastatic disease Kyphoplasty with bx of T8, L1 for improvement of pain and to delineate a diagnosis - planned for Sunday Ca125 - 7 Bone Scan with no evidence of bony mets, fracture likely osteoporotic Abnormal foci right femur - check X ray Spoke with radiology Dr Roy regarding 1.8cm ovoid structure left pelvis posterior bladder - stated an U/S pelvis would not add anything, recommended to follow with PCP/ oncology regarding repeat imaging in the future to document stability. Admission and Anticipated Discharge Date Admission Date: February 22, 2023 Subjective Patient seen this afternoon, she was uncomfortable and asked for IV Morphine. She denies any chest pain, but does admit to pain with taking a deep breath due to the thoracic back pain. She denies any urine problems. She is passing flatus but no BM, she had one dose of miralax this AM. Review of Systems Constitutional: + weight gain; no fever, no chills and no weight loss Respiratory: + pain on inspiration; no cough, no chest congestion and no hemoptysis Cardiovascular: no chest pain, no palpitations, no edema and no calf pain Gastrointestinal: no abdominal pain, no nausea, no vomiting and no change in bowel habits Genitourinary: no dysuria, no difficulty urinating, no urinary frequency and no urinary hesitancy Musculoskeletal: + back pain; no neck pain Integumentary: no rash, no lesions and no new lesions Neurologic: no falls, no paralysis, no loss of sensation, no tingling, no numbness, no radiating pain and no headache(s) Psychiatric: + depression and + anxiety; no change in appetite, no confusion, no hallucinations and no auditory hallucinations Endocrine: + fatigue + weight gain and hypothyroidism (recently started on increased dose) Physical Exam Constitutional: WD/WN, vitals as above no acute distress appears uncomfortable Neck: trachea midline, no thyromegaly Respiratory: normal respiratory effort, lungs clear to auscultation Cardiovascular: RRR, no murmur, no edema Gastrointestinal (Abdomen): normal bowel sounds, soft, nontender, no hepatosplenomegaly Psychiatric: A+Ox3, euthymic affect Results & Data Results & Data Vital Signs (Past 12 Hours) Vital Signs Temp Pulse Resp BP Pulse Ox O2 Del Method 02/24/23 09:21 37.1 C 75 19 119/72 94 Room Air Laboratory Results Abnormal lab results 02/24/23 Range/Units 05:54 WBC 4.53 L (4.8-10.8) K/ul RBC 3.60 L (4.20-5.40) M/uL Hgb 11.9 L (12.0-16.0) g/dl Hct 35.0 L (37.0-47.0) % RDW Std Deviation 47.1 H (36.4-46.3) fL PG Care Time/CCT Total # of Minutes Spent Total Time Spent with Patient: Total time spent is greater than 50% in coordination of care (as documented) at patient's floor/unit and/or counseling patient: Coding Level of Care Code 17967 SUB INP/OBS CARE 2/35MIN Diagnoses Back pain M54.9 Compression fracture of L1 lumbar vertebra S32.010A Chest pain R07.9 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 Constipation K59.00
[2023-02-24] MEDS ORDERED: bisacodyL 10 MG SUPP PR PRN (14:00)
[2023-02-24] MEDS ORDERED: POLYETHYLENE (MIRALAX) 17 GM PACK PO ONE (17:00)
[2023-02-24] MEDS: DOCUSATE SODIUM/SENNA 50/8.6MG TAB PO SCH (21:16)
[2023-02-24] MEDS: LIDOCAINE 5% 1 PATCH TD SCH (21:16)
[2023-02-24] MEDS: ROSUVASTATIN CALCIUM 10 MG TAB PO SCH (21:17)
[2023-02-25] MEDS: LEVOTHYROXINE SODIUM 175 MCG TABLET PO SCH (06:37)
[2023-02-25] MEDS: MoRPHine SULFATE 4 MG/ML 1 ML CARP\\VIAL IV PRN ×2 (08:46→21:17)
[2023-02-25] MEDS: CHOLECALCIFEROL 5,000 UNITS 125 MCG TAB PO SCH (09:25)
[2023-02-25] MEDS: PYRIDOXINE HCL 50 MG TAB PO SCH (09:26)
[2023-02-25] MEDS: AMIODARONE 200 MG TAB PO SCH (09:26)
--- NOTE | 2023-02-25 09:29 | Hospitalist Progress Note ---
Date of Service February 25, 2023 Assessment & Plan (1) Back pain: Plan: ongoing pain for a week, worsening imaging on admission noted L1/T8 compression fracture with no obvious trauma/injury in patient w/ hx metastatic ovarian ca, supposedly in remission (note, thyroid nodule noted by PCP/hypothyroidism w recent adjustments as below) Dr Mccurdy and Dr Rocha on consult appreciate their help and recommendations MRI of lumbar & thoracic spine - scattered enhancing foci in spine concerning for bony metastatic disease with compression deformity at T8 with minimal retropulsion compatible with pathologic fracture Ordered CA125 - 7 Full Body Bone Scan - No evidence of bony mets, T8 and L1 compression likely osteoporotic, indeterminate foci low level activity in Right Femur Ordered Xray right femur Pain control, bowel regimen as needed - Tylenol/Tramadol/morphine as needed Patient is still requiring IV Morphine for pain control Heating pad/lidocaine patches PT/OT consultations to be undertaken (2) Compression fracture of L1 lumbar vertebra: Plan: Compression fracture T8 and L1 MRI with concern for bony mets Bone scan revealed no evidence of bony mets, T8 and L1 compression fractures likely osteoporotic Dr Mccurdy discussed kyphoplasty and biopsy to help with pain and also to help delineate a diagnosis Patient is aware needs to hold the Eliquis She is aware of the risk of this and also risk of surgery and would like to proceed Spoke directly to Dr Mccurdy and may plan for surgery Sunday Discussed with pharmacy and will need to stop the Eliquis for 72 hours prior to the surgery. Will hold Eliquis beginning Sunday02/23/23 SCDs while in bed (3) Chest pain: Plan: ongoing chest/back pain x 1 week CTA NEGATIVE for PE trop 3.4 on initial check, EKG NSR. Last ECHO 2019 w/ LV systolic function normal. Moderate AI, trace-mild MR/TR Suspect pain related to her fractures - only pain with a deep inspiration Incentive spirometer q1H while awake (4) Primary cancer of ovary with widespread metastatic disease: Plan: supposedly in remission imaging for eval as above for concerns pathological fracture Note: There is an indeterminant 1.8 cm ovoid hyperdense structure with central hypodensity seen in the left pelvis posterior to the bladder. This is new from previous and may be on a postsurgical basis. Attention at follow-up is recommended -will need f/u She also notes R thyroid nodule her PCP is keeping an eye on as well Possibly may need a repeat PET scan Last PET scan was 2019 Bone scan with abnormal foci right Femur Check Xray Right Femur - revealed old, healed right femoral fracture this corresponds to the abnormal uptake seen on bone scan Consulted oncology, Dr Rocha who ordered Ca125 - 7 and bone scan revealed no evidence of bony mets, compression fractures likely osteoporotic Plans for a PET scan as out patient (5) PAF (paroxysmal atrial fibrillation): Plan: on Eliquis 5mg BID, amiodarone 200mg daily. follows with Dr Potter Currently in NSR on monitor/EKG no need for monitoring on telemetry at this time - however, repeating TSH/adjustment of Synthroid as needed below Also on Crestor 10mg daily for HLD, continued (6) Deep vein thrombosis (DVT) of iliac vein of right lower extremity: Plan: hx of such and IVC filter since removed eliquis 5mg BID Kyphoplasty and biopsy Sunday with Dr Mccurdy Holding Eliquis Sunday, Sunday and Sunday (per pharmacy off x 72 hr) (7) Hypothyroidism: Plan: continue Synthroid 175mcg daily for now, but prior TSHs 38 in August when she was dx afib/rvr and place on synthroid TSH 15 TSH 21 in November in our system - Of note, she states her Synthroid was just adjusted to 175mcg in the past 1-2 days. When inquired about how/when she takes this medication, she notes she has been taking this with her other medications. Education provided on correct use. Will continue the 175 mcg dose for now Also had recent U/S thyroid for a nodule and may eventually need FNA of the nodule, this is being followed by her PCP Plan Continued inpatient stay for pain control, mri lumbar spine with changes concerning for bony metastatic disease Kyphoplasty with bx of T8, L1 for improvement of pain and to delineate a diagnosis - planned for Sunday Ca125 - 7 Bone Scan with no evidence of bony mets, fracture likely osteoporotic Abnormal foci right femur - check X ray Spoke with radiology Dr Roy regarding 1.8cm ovoid structure left pelvis posterior bladder - stated an U/S pelvis would not add anything, recommended to follow with PCP/ oncology regarding repeat imaging in the future to document stability. Plavix on hold since 02/23, SCDs while in bed, encouraged up and OOB, anticipate Kyphoplasty Sunday with Dr Mccurdy Admission and Anticipated Discharge Date Admission Date: February 22, 2023 Subjective Patient seen this morning, she ws awake sitting up in recliner. She states she finally had a large BM today. She denies any N/V. She continues to require IV Morphine. Review of Systems Constitutional: + weight gain; no fever, no chills and no weight loss Respiratory: + pain on inspiration; no cough, no chest congestion and no hemoptysis Cardiovascular: no chest pain, no palpitations, no edema and no calf pain Gastrointestinal: no abdominal pain, no nausea, no vomiting and no change in bowel habits Genitourinary: no dysuria, no difficulty urinating, no urinary frequency and no urinary hesitancy Musculoskeletal: + back pain; no neck pain Integumentary: no rash, no lesions and no new lesions Neurologic: no falls, no paralysis, no loss of sensation, no tingling, no numbness, no radiating pain and no headache(s) Psychiatric: + depression and + anxiety; no change in appetite, no confusion, no hallucinations and no auditory hallucinations Endocrine: + fatigue + weight gain and hypothyroidism (recently started on increased dose) Physical Exam Constitutional: WD/WN, vitals as above no acute distress Neck: trachea midline, no thyromegaly Respiratory: normal respiratory effort, lungs clear to auscultation Cardiovascular: RRR, no murmur, no edema Gastrointestinal (Abdomen): normal bowel sounds, soft, nontender, no hepatosplenomegaly Psychiatric: A+Ox3, euthymic affect Results & Data Results & Data Vital Signs (Past 12 Hours) Vital Signs Temp Pulse Resp BP Pulse Ox O2 Del Method 02/25/23 08:10 118/71 02/25/23 07:06 36.5 C 61 18 106/66 95 Room Air 02/24/23 21:55 36.4 C L 63 18 117/72 96 Room Air PG Care Time/CCT Total # of Minutes Spent Total Time Spent with Patient: Total time spent is greater than 50% in coordination of care (as documented) at patient's floor/unit and/or counseling patient: Coding Level of Care Code 00945 SUB INP/OBS CARE 1/25MIN Diagnoses Back pain M54.9 Compression fracture of L1 lumbar vertebra S32.010A Chest pain R07.9 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
[2023-02-25] MEDS: traMADol HCL 50 MG TABLET PO PRN ×2 (13:00→20:47)
[2023-02-25] MEDS: ROSUVASTATIN CALCIUM 10 MG TAB PO SCH (20:30)
[2023-02-25] MEDS: LIDOCAINE 5% 1 PATCH TD SCH (20:30)
[2023-02-25] MEDS: DOCUSATE SODIUM/SENNA 50/8.6MG TAB PO SCH (20:30)
[2023-02-26] MEDS: MoRPHine SULFATE 4 MG/ML 1 ML CARP\\VIAL IV PRN ×3 (05:21→22:40)
[2023-02-26] MEDS: LEVOTHYROXINE SODIUM 175 MCG TABLET PO SCH (06:10)
[2023-02-26] MEDS: AMIODARONE 200 MG TAB PO SCH (09:02)
[2023-02-26] MEDS: CHOLECALCIFEROL 5,000 UNITS 125 MCG TAB PO SCH (09:02)
[2023-02-26] MEDS: PYRIDOXINE HCL 50 MG TAB PO SCH (09:02)
--- NOTE | 2023-02-26 13:30 | Hospitalist Progress Note ---
Date of Service February 26, 2023 Assessment & Plan (1) Back pain: Plan: Acute/unstable - ongoing pain for a week, worsening - imaging on admission noted L1/T8 compression fracture with no obvious trauma/injury in patient w/ hx metastatic ovarian ca, supposedly in remission (note, thyroid nodule noted by PCP) - Dr Mccurdy and Dr Rocha on consult, appreciate assistance - MRI of lumbar & thoracic spine: scattered enhancing foci in spine concerning for bony metastatic disease with compression deformity at T8 with minimal retropulsion compatible with pathologic fracture - Ordered CA125 - 7 - Full Body Bone Scan - No evidence of bony mets, T8 and L1 compression likely osteoporotic, indeterminate foci low level activity in Right Femur - Ordered Xray right femur - no suspicious osseous lesions, fracture, or dislocation - Pain control, bowel regimen as needed (Tylenol/Tramadol/morphine tiered) - For OR today for kyphoplasty & biopsy with Dr. Mccurdy today (02/26) - for pain control and to delineate diagnosis - Eliquis placed on hold starting 02/23 for planned procedure (2) Chest pain: Plan: Acute/stable/resolved - ongoing chest/back pain x 1 week - CTA NEGATIVE for PE - trop 3.4 on initial check, EKG NSR. Last ECHO 2019 w/ LV systolic function normal. Moderate AI, trace-mild MR/TR - Suspect pain referred from her fractures - only pain with a deep inspiration - Incentive spirometer q1H while awake (3) Primary cancer of ovary with widespread metastatic disease: Plan: ? in remission - imaging for eval as above for concerns pathological fracture - Note: There is an indeterminant 1.8 cm ovoid hyperdense structure with central hypodensity seen in the left pelvis posterior to the bladder. This is new from previous and may be on a postsurgical basis. Attention at follow-up is recommended -will need f/u - She also notes R thyroid nodule her PCP is keeping an eye on as well - Possibly may need a repeat PET scan, last PET scan was 2019 - Consulted oncology, Dr Rocha who ordered Ca125 - 7 and bone scan revealed no evidence of bony mets, compression fractures likely osteoporotic - Plans for a PET scan as out patient (4) PAF (paroxysmal atrial fibrillation): Plan: Chronic/stable - on Eliquis 5mg BID, amiodarone 200mg daily. 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 - Also had recent U/S thyroid for a nodule and may eventually need FNA of the nodule, this is being followed by her PCP Plan For planned procedure today. Resume diet after procedure and Eliquis tomorrow AM. PT/OT eval. Above plan to be d/w Dr. Johnson. Admission and Anticipated Discharge Date Admission Date: February 22, 2023 Subjective Patient seen on rounds this morning. Continues to endorse severe back pain. Is for the OR today for kyphoplasty with Dr. Mccurdy. No cp or dyspnea. No numbness/tingling, urinary symptoms, bowel/bladder incontinence. Physical Exam Physical Exam: GENERAL: 67 yo well-developed, well-nourished WF. NAD. LUNGS: Clear to auscultation bilaterally, no w/r/r. CARDIOVASCULAR: Regular rate and rhythm. EXTREMITIES: No edema. Non-tender. Peripheral pulses +2/4. NEUROLOGIC: A&O x3. No focal neurological deficits. CN II-XII grossly intact. Results & Data Results & Data Vital Signs (Past 12 Hours) Vital Signs Temp Pulse Resp BP Pulse Ox O2 Del Method 02/26/23 09:01 64 02/26/23 07:52 36.5 C 56 L 16 114/65 95 Room Air Laboratory Results no labs drawn today PG Care Time/CCT Total # of Minutes Spent Total Time Spent with Patient: Total time spent is greater than 50% in coordination of care (as documented) at patient's floor/unit and/or counseling patient: Coding Level of Care Code 46009 SUB INP/OBS CARE 2/35MIN Diagnoses Back pain M54.9 Chest pain R07.9 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
[2023-02-26] MEDS ORDERED: PROPOFOL IV EMULSION 10 MG/ML 20 ML VIAL IV ONE (15:20)
[2023-02-26] MEDS ORDERED: ROCURONIUM BROMIDE 10 MG/ML 5 ML VIAL IV ONE (15:20)
[2023-02-26] MEDS ORDERED: ONDANSETRON INJ 2 MG/ML 2 ML VIAL ONE (15:22)
[2023-02-26] MEDS ORDERED: DEXAMETHASONE SOD INJ 4 MG/ML VIAL ONE (15:22)
[2023-02-26] MEDS ORDERED: MIDAZOLAM HCL 1 MG/ML 2ML VIAL ONE (15:23)
[2023-02-26] MEDS ORDERED: fentaNYL citrate PF 100 MCG/2 ML VIAL ONE (15:23)
--- NOTE | 2023-02-26 15:29 | History & Physical Bridge Note ---
Date of Service February 26, 2023 History & Physical Bridge Note I have examined the patient, reviewed the History & Physical and in the interval since the performance of the History & Physical I have noted the following changes of clinical significance: no changes note kyphoplasty T8 and L1
[2023-02-26] MEDS ORDERED: ceFAZolin 2,000 MG/15 ML IV PUSH IV ONE (15:32)
[2023-02-26] MEDS ORDERED: ceFAZolin 2000MG 2,000 MG/15 ML SYR IV ONE (15:36)
[2023-02-26 15:41] LABS: Vitamin B12 391 pg/ml (180-914)
[2023-02-26] MEDS ORDERED: BUPIVACAINE/EPINEPHRINE 0.25% 1:200,000 30 ML VIAL ONE (15:53)
[2023-02-26] MEDS ORDERED: ONDANSETRON INJ 2 MG/ML 2 ML VIAL IV PRN (16:16)
[2023-02-26] MEDS ORDERED: ePHEDrine sulfate 50 MG/ML AMP IV PRN (16:16)
[2023-02-26] MEDS ORDERED: ATROPINE SULFATE 0.1 MG/ML 10ML SYR IV PRN (16:16)
--- NOTE | 2023-02-26 16:16 | Anesthesiology Consultation ---
Date of Service February 26, 2023 Assessment & Plan Chart Review Chart Review: Acceptable Risk for Surgery and Patient NOT seen in Pre Admission Testing Consults Requested none ASA ASA3 Proposed Anesthesia Anesthesia Type: General Risk / Benefits Reviewed With: PT / POA / Parent / Guardian, Accepts Plan and Informed Consent Obtained History Surgery Operation Date: 02/26/23 08:20 Proposed Procedures p L8 and L1 Kyphoplasty - Thien Mccurdy, Height/Weight Height: 5 ft 8 in Weight: 79.9 kg Allergies Allergy/AdvReac Type Severity Reaction Status Date / Time ibuprofen Allergy Severe Anaphylaxis Verified 02/20/23 14:39 codeine Allergy Intermediate Rash Verified 02/20/23 14:39 Medications Home Medications Medication Instructions Recorded Confirmed Last Taken Walking Cane #1 ea 06/22/20 11/02/22 Unknown sennosides 8.6 mg-docusate sodium 1 tab PO HS 01/05/22 02/20/23 02/19/23 50 mg tablet (Senokot-S) tramadol 50 mg tablet 50 mg PO Q8H PRN Pain 01/05/22 02/20/23 11/21/22 amiodarone 200 mg tablet 200 mg PO DAILY 90 days #90 tabs 04/20/22 02/20/23 02/20/23 apixaban 5 mg tablet (Eliquis) 5 mg PO BID #180 tabs 04/20/22 02/20/23 02/20/23 08:00 rosuvastatin 10 mg tablet 10 mg PO HS #90 tabs 04/20/22 02/20/23 02/19/23 levothyroxine 175 mcg tablet 175 mcg PO QAM 02/20/23 02/20/23 02/20/23 Active Medications Generic Name Dose Route Start Last Admin Trade Name Freq PRN Reason Stop Dose Admin Amiodarone HCl 200 mg 02/21/23 09:00 02/26/23 09:02 Amiodarone 200 Mg Tab PO 03/23/23 08:59 200 mg DAILY EULA Administration Apixaban 5 mg 02/20/23 21:00 02/22/23 20:24 Apixaban 5 Mg Tablet PO 03/22/23 20:59 5 mg BID EULA Administration Bisacodyl 10 mg 02/24/23 14:00 02/25/23 09:25 Bisacodyl 10 Mg Supp NM 03/26/23 13:59 10 mg DAILY PRN Administration Constipation Levothyroxine Sodium 175 mcg 02/21/23 06:30 02/26/23 06:10 Levothyroxine Sodium 175 Mcg Tablet PO 03/23/23 06:29 175 mcg DAILYBB EULA Administration Lidocaine 1 patch 02/20/23 21:00 02/25/23 20:30 Lidocaine 5% 1 Patch TD 03/22/23 20:59 1 patch HS EULA Administration Lorazepam 0.5 mg 02/22/23 17:48 02/22/23 22:03 Lorazepam 0.5 Mg Tab PO 03/24/23 17:47 0.5 mg HS PRN Administration Anxiety Magnesium Hydroxide 30 ml 02/23/23 07:47 02/23/23 08:16 Magnesium Hydroxide Susp 30 Ml Udc PO 03/25/23 07:46 30 ml DAILY PRN Administration Constipation Miscellaneous 1 each 02/21/23 09:00 02/26/23 09:02 Remove Lidoderm Patch N/A 03/23/23 08:59 1 each DAILY@0900 EULA Administration Morphine Sulfate 4 mg 02/20/23 15:54 02/26/23 10:26 Morphine Sulfate 4 Mg/Ml 1 Ml Carp\Vial IV 03/06/23 15:53 4 mg Q2H PRN Administration Severe Pain (Rating 7,8,9,10) Morphine Sulfate 2 mg 02/20/23 15:54 02/21/23 07:49 Morphine Sulfate 2 Mg/Ml Carp IV 03/06/23 15:53 2 mg Q2H PRN Administration Moderate Pain (Rating 3,4,5,6) Ondansetron HCl 4 mg 02/20/23 19:31 02/22/23 02:21 Ondansetron Inj 2 Mg/Ml 2 Ml Vial IV 03/22/23 19:30 4 mg Q6H PRN Administration Nausea Polyethylene Glycol 17 gm 02/20/23 19:31 02/24/23 11:53 Polyethylene (Miralax) 17 Gm Pack PO 03/22/23 19:30 17 gm DAILY PRN Administration Constipation Pyridoxine HCl 50 mg 02/21/23 09:00 02/26/23 09:02 Pyridoxine Hcl 50 Mg Tab PO 03/23/23 08:59 50 mg QAM EULA Administration Rosuvastatin Calcium 10 mg 02/20/23 21:00 02/25/23 20:30 Rosuvastatin Calcium 10 Mg Tab PO 03/22/23 20:59 10 mg HS EULA Administration Senna/Docusate Sodium 1 tab 02/20/23 21:00 02/25/23 20:30 Docusate Sodium/Senna 50/8.6mg Tab PO 03/22/23 20:59 1 tab HS EULA Administration Tramadol HCl 50 mg 02/20/23 19:31 02/25/23 20:47 Tramadol Hcl 50 Mg Tablet PO 03/22/23 19:30 50 mg Q8H PRN Administration Pain Vitamin D 5,000 units 02/21/23 09:00 02/26/23 09:02 Cholecalciferol 5,000 Units 125 Mcg Tab PO 03/23/23 08:59 5,000 units QAM EULA Administration NPO Date Last Intake of Fluids: 02/26/23 Time Last Intake of Fluids: 21:00 Last Intake of Fluids Comment: sip of water 0902 w/meds Date Last Intake of Solids: 02/26/23 Time Last Intake of Solids: 21:00 Past Medical History Medical History Atrial fibrillation with RVR Critical airway Deep vein thrombosis (DVT) of iliac vein of right lower extremity Encounter for pre-operative examination Foreign body accidentally left during a procedure Fracture of pubic ramus Hematoma of neck Hypercholesteremia Neck swelling Paroxysmal atrial fibrillation Primary cancer of ovary with widespread metastatic disease Small bowel obstruction Exercise / Class Metabolic Activity II 4-5 Yardwork/Stairs/Walk up hill Past Surgical History Surgical History History of abdominal surgery History of bowel resection History of total right hip arthroplasty Past Anesthesia History No Hx of Anesthesia Complications and No Family Hx of Anesthesia Complications History of PONV No Hx of PONV and No Hx of Motion Sickness Social History Smoking Status: Former smoker tobacco type: e-cigarettes Hx Alcohol Use: Yes Alcohol type: beer alcohol intake frequency: a few times a week Hx Substance Use: No substance use type: does not use Physical Exam Vital Signs Last Vital Signs Temp 36.8 C 02/26/23 15:05 Pulse 60 02/26/23 15:05 Resp 18 02/26/23 15:05 BP 118/71 02/26/23 15:05 Pulse Ox 93 02/26/23 15:05 O2 Del Method Room Air 02/26/23 15:05 ENMT Mouth: no dentition abnormality Thyromental Distance: > or= 3.5 Finger Breadths Mallampati Class: II Neck normal visual inspection Respiratory normal respiratory effort Auscultation: lungs clear to auscultation bilaterally Cardiovascular Rate/Rhythm: regular rate and regular rhythm Psychiatric Orientation: alert Testing Laboratory Results 02/24/23 05:54 02/22/23 07:03 PT 10.9 Seconds (9.0-12.0) 02/22/23 07:03 INR 1.0 (0.9-1.1) 02/22/23 07:03
[2023-02-26] MEDS ORDERED: ARTIFICIAL TEARS OP OINT 3.5 GM TUBE ONE (16:31)
[2023-02-26] MEDS ORDERED: ePHEDrine sulfate 50 MG/ML AMP ONE (16:39)
[2023-02-26] MEDS ORDERED: IOPAMIDOL INJ 61% 15 ML VIAL INSTIL ONE (17:03)
[2023-02-26] MEDS ORDERED: ALBUMIN HUMAN 5% 12.5 GM/250 ML VIAL IV ONE (17:10)
--- NOTE | 2023-02-26 17:31 | Operative Report ---
Post Operative Report Pre & Post Diagnosis Operation Date: 02/26/23 08:20 Pre-Op Diagnosis: T8 and L1 compression fracture, possibly pathologic Post-Op Diagnosis: Same I identified the patient and participated in the time-out.: Yes Procedure Operation Date: 02/26/23 08:20 Actual Procedures #1 T8 and L1 kyphoplasty. #2 biopsy of T8 and L1 vertebral body Surgeon Thien Mccurdy, DO [employer] None Estimated Blood Loss 10 Findings Consistent with Post-Op Diagnosis Specimens T8 and T11 vertebral body biopsy Indications This is a 67-year-old female who presents with above-mentioned diagnosis struggling with significant pain she elected undergo the above-mentioned procedure. Description of Procedure Patient was met with identified informed consent obtained. Patient was then taken to the operative suite underwent ablation placed in a prone position on the Charles table chest padded bolsters. All bony prominences well-padded eyes inspected to ensure no external pressure placed upon them. This point the thoracolumbar spine was prepped and draped no sterile fashion. The assistance of fluoroscopy identified the T8 vertebral body. Fluoroscopy in AP and lateral planes were utilized. Then created 2 small incisions just lateral to the pedicles and 2 Kyphon working cannulas were then placed by way of a transpedicular approach into the T8 vertebral body. Core biopsies were obtained. Then inserted 15 mm Kyphon balloon sequentially inflated subsequently removed and approximately 4 cc of Kyphon cement was injected under fluoroscopic visualization demonstrating excellent fill and interdigitation. I then proceeded to L1. Again by way of a transpedicular approach Kyphon working cannulas were placed within the vertebral body. Core biopsies were obtained. 15 mm balloons inserted sequentially inflated and approximately 6 cc of Kyphon cement injected with fluoroscopic visualization demonstrating excellent interdigitation and fill. All working apparatus was removed the small incisions closed with subcutaneous Monocryl and sterile dressings placed. Patient a wakened and taken to PACU in stable condition. I attest to the content of the Intraoperative Record and any orders documented therein. Any exceptions are noted below.
[2023-02-26] MEDS: fentaNYL citrate PF 100 MCG/2 ML VIAL IV PRN ×2 (17:48→17:53)
--- NOTE | 2023-02-26 18:01 | Anesthesiology Progress Note ---
Date of Service February 26, 2023 Anesthesia Post Procedure Vital Signs Vital Signs: Temp Pulse Pulse Pulse Resp BP Pulse Ox 02/26/23 17:55 71 10 L 126/72 98 02/26/23 17:45 81 15 132/87 95 02/26/23 17:39 36.3 C L 93 H 13 160/84 H 97 02/26/23 15:05 36.8 C 60 18 118/71 93 02/26/23 09:01 64 02/26/23 07:52 36.5 C 56 L 16 114/65 95 02/25/23 20:35 02/25/23 22:19 36.7 C 68 16 138/72 93 O2 Del Method O2 Flow Rate 02/26/23 17:55 Nasal Cannula 2 02/26/23 17:45 Nasal Cannula 2 02/26/23 17:39 Nasal Cannula 2 02/26/23 15:05 Room Air 02/26/23 09:01 02/26/23 07:52 Room Air 02/25/23 20:35 Room Air 02/25/23 22:19 Room Air Pain Intensity Bilateral Back: Pain Intensity: 10 Back: Pain Intensity: 4 Transfer of Care Handoff Completed per policy Notes Mental Status: alert / awake / arousable Patient Amnestic to Procedure: Yes Nausea / Vomiting: adequately controlled Pain: adequately controlled Airway Patency, RR, SpO2: stable & adequate BP & HR: stable & adequate Hydration State: stable & adequate Anesthetic Complications: no major complications apparent
--- NOTE | 2023-02-26 18:07 | Fluoroscopy Report ---
[place] lumbar spine 2-3V CLINICAL HISTORY: T8 AND L1 KYPHOPLASTY COMPARISON STUDY: Thoracolumbar radiographs 02/21/2023 FLUOROSCOPY TIME: 106.7 seconds FLUOROSCOPY IMAGES: 5 EXPOSURE DOSE: 78.08 mGy FINDINGS: Kyphoplasty changes are noted at what appears to be the L1 level. The study also reports th at kyphoplasty was conducted at the T8 level. Exact numbering is difficult secondary to magnification of the images. Note that the images were submitted after completion of the procedure. IMPRESSION: Fluoroscopic assistance as above. ACT 112: Negative or not required by law. Electronically signed by: Mauro Marlow M.D. 02/26/2023 6:04 PM
[2023-02-26] MEDS: MoRPHine SULFATE 2 MG/ML CARP IV PRN (19:34)
[2023-02-26] MEDS: LIDOCAINE 5% 1 PATCH TD SCH (22:35)
[2023-02-26] MEDS: ROSUVASTATIN CALCIUM 10 MG TAB PO SCH (22:38)
[2023-02-26] MEDS: DOCUSATE SODIUM/SENNA 50/8.6MG TAB PO SCH (22:38)
[2023-02-26] MEDS ORDERED: COUGH DROP (SUGAR FREE) LOZ 24 LOZ/1 BOX BUCCAL ONE (22:54)
[2023-02-27] MEDS: MoRPHine SULFATE 4 MG/ML 1 ML CARP\\VIAL IV PRN ×4 (02:48→12:14)
[2023-02-27] MEDS: LEVOTHYROXINE SODIUM 175 MCG TABLET PO SCH (06:40)
[2023-02-27] MEDS: PYRIDOXINE HCL 50 MG TAB PO SCH (08:40)
[2023-02-27] MEDS: AMIODARONE 200 MG TAB PO SCH (08:40)
[2023-02-27] MEDS: CHOLECALCIFEROL 5,000 UNITS 125 MCG TAB PO SCH (08:40)
[2023-02-27] MEDS: POLYETHYLENE (MIRALAX) 17 GM PACK PO PRN (09:04)
--- NOTE | 2023-02-27 11:17 | Orthopedic Progress Note ---
Date of Service February 27, 2023 Assessment & Plan (1) Nontraumatic compression fracture of T8 vertebra: Plan: At this time she may ambulate as tolerated. She is not to lift more than 5 pounds. She is stable for discharge per orthopedics. I will have her follow-up in 2 weeks in our office for x-rays. Admission and Anticipated Discharge Date Admission Date: February 22, 2023 Subjective Back pain markedly improved. She has been up and ambulating. Physical Exam Physical Exam: On exam patient is currently in bed. He is comfortable. Is good strength testing. Results & Data Vital Signs (Past 12 Hours) Vital Signs Temp Pulse Resp BP Pulse Ox O2 Del Method O2 Flow Rate 02/27/23 07:49 36.8 C 64 14 107/65 92 Nasal Cannula 2 02/27/23 03:10 36.5 C 65 16 134/76 97 Nasal Cannula 2.0
[2023-02-27] MEDS ORDERED: APIXABAN 5 MG TABLET PO SCH (13:00)
--- NOTE | 2023-02-27 13:05 | Discharge Summary ---
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 Other PMHx significant for paroxysmal atrial fibrillation,, prior SBOs (likely on basis of adhesions given prior surgery), right iliac vein DVT and during hospitalization for her abd surgery resulting in hematoma around site of right IJ which had to be evacuated and placement w/ IVC filter placed prior to discharge which was removed by Dr Cotter earlier this year. She presented to the ER symptoms of chest and back pain ongoing for about a week but waited to seek medical care due to not wanting to interrupt . Reported shortness of breath/pain w/ deep breathing due to pain in her chest/back. No trauma reported. Troponin 3.4. She reports that she has been having pain for about a week -- taking some Tylenol and left over muscle relaxers at home without much relief. No trauma reported but she does note that she had been taking a hot bath last weekend and getting up out of shower felt a sharp pain but then was fine once up/walking. She notes she was taking care of her grandson a month prior to this and she noted that she felt a pop, and went to urgent care and had x-rays which she noted they said looked fine. She does carry a history of osteoporosis and has been taking oral vitamin D 5000 daily. She notes last week on Sunday her and took a ride in a side by side and thinks this may have aggravated her pain w/ the ride in the side car. She notes pain ok/tolerable at present but that she just got some morphine from ER nurse not long ago. Discussed her Synthroid -- she notes that is new med since last year and started with 100mcg and just recently increased to 175mcg 1-2 days ago. She states she has been taking this medication WITH her other morning medications, and notes she was unaware of interaction w/ calcium supplementation and notes the Vitamin D she has been on. Discussed setting alarm and taking on empty stomach prior to any other medications. She does endorse fatigue/dry skin/nails/etc. She notes she had US of her thyroid and was told has a small nodule on the right that they have been keeping an eye on. She states she has been following oncology and currently in remission. Has chronic RLE edema from her prior DVT and NO CHANGE from baseline. Remains on eliquis and no missed doses reported. ER Course: CTA of the chest was NEGATIVE for PE CT chest/abdomen revealed subacute compression fracture of L1 w/ mild loss of height and acute to subacute appearingright transverse process fracture of L2 as well as acute to subacute compression fracture of T8 with no evidence of significant retropulsion. Given morphine 4mg IV x 1, 1gm IV Tylenol and 500cc NSS thus far. ER provider discussed case with Dr Mccurdy who recommended MRI w/ contrast to further evaluated whether or not fracture could be pathologic in origin given patients history of malignancy. Will be admitted for pain control, MRI of lumbar spine for further eval of fractures given her history. She states she is a DNR if no meaningful recovery, her family is aware of wishes (confirmed w/ at bedside) but that she is ok w/ short term and noted she was ok w/ intubation required last admission. Will make Full Code for now. 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 They are from [place] Principal Diagnosis Uncontrolled back pain secondary to compression fractures Discharge Exam GENERAL: 67 yo well-developed, well-nourished WF. NAD. LUNGS: Clear to auscultation bilaterally, no w/r/r. CARDIOVASCULAR: Regular rate and rhythm. EXTREMITIES: No edema. Non-tender. Peripheral pulses +2/4. NEUROLOGIC: A&O x3. No focal neurological deficits. CN II-XII grossly intact. Discharge Data Allergies Allergy/AdvReac Type Severity Reaction Status Date / Time ibuprofen Allergy Severe Anaphylaxis Verified 02/20/23 14:39 codeine Allergy Intermediate Rash Verified 02/20/23 14:39 Consultations 02/20/23 15:54 ED Decision to Admit Stat 02/20/23 19:31 Consult Orthopedic Surgery Routine 02/21/23 15:16 Consult Oncology Routine Procedures Performed Operation Date: 02/26/23 08:20 Actual Procedures p T8 and L1 Kyphoplasty(Not Applicable) - Thien Mccurdy, DO Ordered Studies Chest X-Ray 02/20/23 12:21 XR chest 1V portable HISTORY: 67 years-old Female Chest pain, nonspecific acute chest pain COMPARISON: Chest radiograph 01/09/2022 TECHNIQUE: AP view of the chest FINDINGS: Cardiomediastinal and hilar silhouettes are within normal limits. Atherosclerosis of the aorta. Right IJ Apeluk-b-Uirt catheter is unchanged. Mild chronic interstitial coarsening. No pneumothorax, pleural effusion, airspace consolidation or pulmonary edema. Bones appear grossly intact. IMPRESSION: No acute process. ACT 112: Negative or not required by law. The above report was generated using voice recognition software. It may contain grammatical, syntax or spelling errors. Electronically signed by: Mauro Marlow M.D. 02/20/2023 1:12 PM Abdomen/Pelvis CT 02/20/23 13:22 CT SCAN OF THE ABDOMEN AND PELVIS WITH IV CONTRAST CLINICAL HISTORY: Atypical chest pain. Generalized abdominal pain. Low back pain. COMPARISON STUDY: Abdominal CT dated 02/24/2022. TECHNIQUE: Following the IV administration of 113 cc of Optiray 320, CT scan of the abdomen and pelvis is performed from the lung bases to the proximal femora. Images are reviewed in the axial, sagittal, and coronal planes. IV contrast was administered without complication. A dose lowering technique was utilized adhering to the principles of ALARA. CT DOSE: 1214.84 mGy.cm FINDINGS: Lung bases: The tip of a central venous infusion port terminates in the right ventricle. The heart is normal in size and without pericardial effusion. There is a trace right pleural effusion and dependent atelectasis. No airspace consolidation is identified. A small hiatal hernia is noted. Liver: The contrast-enhanced liver is normal in size, contour, and attenuation. There is no intrahepatic biliary ductal dilatation. The hepatic veins and portal veins are patent. Gallbladder: Unremarkable. Spleen: Normal in size and attenuation. Pancreas: Moderately atrophic and grossly unremarkable. Adrenal glands: Unremarkable. Kidneys: The contrast enhanced kidneys demonstrate mild cortical atrophy and are without hydronephrosis. The kidneys enhance symmetrically. Foci of cortical scarring are seen in both kidneys. Left upper pole renal cysts measure up to 1.8 cm. Abdominal vasculature: The abdominal aorta is normal in course and caliber noting moderate to advanced atherosclerotic calcification. The right iliac vein is diminutive and not well visualized. Bowel: A small bowel anastomosis is noted in the left lower quadrant. No bowel obstruction is seen. There is mild colonic fecal retention. Scattered colonic diverticula are noted without CT evidence of acute diverticulitis. The appendix is not identified and reported surgically absent. Peritoneum: There is no intraperitoneal free air or abdominal ascites. A midline surgical scar is noted with evidence of interval ventral hernia repair. There is a fat-containing supraumbilical hernia. Lymphadenopathy: None. Pelvic viscera: The bladder is distended but otherwise normal in appearance. The uterus is surgically absent. There is an indeterminant 1.8 cm hyperdense structure with a hypodense center posterior to the lateral left which is new from previous. This is best seen on image #270. Skeletal structures: The skeletal structures are osteopenic. There is an acute to subacute compression fracture of L1 with mild loss of height. Fracture involves both the superior and inferior endplate as well as the anterior cortex. There is no involvement of the posterior cortex or posterior elements. No retropulsed fragments are identified. Paravertebral edema is noted at this level. There is an acute appearing right transverse process fracture of L2. There are chronic superior endplate compression deformity is of L2 and L3. No lytic or blastic lesions are seen. Chronic deformity and postsurgical changes noted in the right proximal femur. There is chronic deformity of the right sacral ala and the right pubic rami. IMPRESSION: 1. There is an acute to subacute appearing compression fracture of L1 with mild loss of height as detailed above. No significant retropulsion of fragments are seen. 2. There is an acute subacute appearing right transverse process fracture of L2. 3. Additional chronic fractures as above. 4. Bladder distention. 5. There is an indeterminant 1.8 cm ovoid hyperdense structure with central hypodensity seen in the left pelvis posterior to the bladder. This is new from previous and may be on a postsurgical basis. Attention at follow-up is recommended. 6. Trace right pleural effusion. 7. Additional findings as above. ACT 112: Negative or not required by law. Electronically signed by: Sarath Roy M.D. 02/20/2023 2:37 PM Chest CTA 02/20/23 13:22 CT angio chest PE protocol HISTORY: 67 years-old Female with chest/back/abd pain, h/o ovarian cancer, r/o PE. Acute shortness of breath and chest pain TECHNIQUE: Multiple CTA images of the chest were obtained after the intravenous administration of 113 ml Optiray. Coronal and sagittal MIPS were obtained from the axial data set and were submitted for review. All measurements were obtained according to NASCET criteria. A dose lowering technique was utilized adhering to the principles of ALARA. COMPARISON: CT abdomen and pelvis of same day, chest CT 02/24/2022 FINDINGS: CTA: The heart is normal in size without pericardial effusion. Moderate coronary artery calcifications. Atherosclerosis of the thoracic aorta without aneurysm. CT of the imaged great vessels. Right IJ Rhfrau-s-Fjav catheter terminates in the right atrium. No pulmonary emboli are identified. CT CHEST: No thyroid nodule or lymphadenopathy. No pneumothorax, pleural effusion or overt pulmonary edema. Mild pulmonary emphysema with bronchial wall thickening. Subsegmental bibasilar atelectasis. There are no suspicious pulmonary nodules or masses identified. Cortical scarring with parenchymal thinning of the kidneys. Renal cysts are present. Subcentimeter calcifications of the superior pole right kidney. Unremarkable soft tissues. Demineralized appearance of the bones with multilevel degenerative changes of the spine severe intervertebral disc space narrowing at T6-T7 redemonstrated. 50% mid vertebral body compression deformity at T8 without significant retropulsion is new from prior. 30% central compression deformity at L1 without retropulsion is new from prior. Heterogeneous sclerosis of this vertebral body is also noted with mild paravertebral edema.. Chronic L2 superior endplate compression deformity. IMPRESSION: 1. Acute to subacute appearing L1 compression deformity with mild paravertebral edema and no significant retropulsion. Sclerosis of this vertebral body is likely secondary to the fracture. A pathologic fracture considered less likely. 2. T8 compression deformity without significant retropulsion is also likely acute or subacute. 3. No pulmonary emboli identified. 4. No lymphadenopathy or evidence of thoracic metastatic disease. 5. Mild pulmonary emphysema. ACT 112: Negative or not required by law. The above report was generated using voice recognition software. It may contain grammatical, syntax or spelling errors. Electronically signed by: Mauro Marlow M.D. 02/20/2023 2:43 PM Lumbar Spine MRI 02/20/23 16:35 MR lumbar spine wo/w con CLINICAL HISTORY: 67 years-old Female with L1 fx, hx met ovarian ca, eval pathological fx. Acute low back pain in a patient with history of ovarian c arcinoma and prior lumbar compression deformities. COMPARISON: CT abdomen and pelvis of same day, and also 02/24/2022, MRI lumbar spine 09/10/2015. TECHNIQUE: Multiplanar, multi sequence MRI of the lumbar spine was performed both with and without the use of 8.5 cc Gadavist. FINDINGS: [employer] localizer images demonstrate no gross extraspinal abnormality. Susceptibility artifact related to the right hip ORIF hardware. Conus medullaris terminates at T12-L1. Questioned edema overlying the mid sacrum is likely artifactual. Chronic L2 and L3 compression deformities demonstrate mild likely degenerative marrow superior endplate Schmorl's nodes and no significant retropulsion. There is an acute L1 compression deformity which demonstrates approximately 50% central vertebral body height loss without significant retropulsion. Mild likely degenerative bone marrow edema at T11 and T12 with small superior endplate Schmorl's node at T11 with moderate surrounding marrow edema. Mild marrow edema involves the left pedicles and facets at L4-L5, likely reactive. Acute/subacute appearing right L2 transverse process fracture. Corresponding enhancement is noted within the areas of described marrow edema. T12-L1: Ligamentum flavum thickening with moderate facet arthrosis. No central canal or neural foraminal narrowing. L1-L2: Spondylitic spurring with small circumferential annular disc bulge and posterior disc osteophyte complex. Ligamentum flavum thickening with moderate facet arthrosis. Mild bilateral neural foraminal narrowing. The central canal is patent. L2-L3: Spondylitic spurring with small circumferential annular disc bulge. Ligamentum flavum thickening with moderate facet arthrosis. The central canal and right neural foramen are patent. Mild left neural foraminal narrowing. L3-L4: Spondylitic spurring with small posterior annular disc bulge. Ligamentum flavum thickening with severe facet arthrosis. The central canal is patent. Mild inferior bilateral neural foraminal narrowing. L4-L5: Mild intervertebral disc space narrowing with spondylitic spurring. Small circumferential annular disc bulge, eccentric to the left with annular fissure. Ligamentum flavum thickening with severe facet arthrosis, small right and moderate left facet effusions. AP dimension of the thecal sac measures 6 mm. Moderate to severe central canal stenosis with mild to moderate right and moderate left lateral recess narrowing. Mild right with moderate left neural foraminal narrowing. L5-S1: Mild intervertebral disc space narrowing and spondylitic spurring with small circumferential annular disc bulge, eccentric to the right. Ligamentum flavum thickening with severe facet arthrosis, trace left and moderate right facet effusions. Mild central canal stenosis, AP dimension of the thecal sac measuring 9 mm. Mild left with mild to moderate right neural foraminal narrowing. There is at least mild narrowing of the right lateral recess. IMPRESSION: 1. Acute appearing L1 compression deformity with 50% vertebral body height loss and no significant retropulsion. 2. Superior endplate Schmorl's node at T11 with moderate marrow edema, likely acute or subacute. 3. Chronic L2 and L3 compression deformities. 4. Areas of enhancement within the thoracolumbar spine are likely reactive/degenerative. No definite marrow replacing process identified. 5. Discogenic degeneration with spondylitic spurring and facet arthrosis as above resulting in multilevel neural foraminal narrowing with central canal stenosis at L4-L5 and L5-S1. 6. Acute/subacute right L2 transverse process fracture. ACT 112: Negative or not required by law. The above report was generated using voice recognition software. It may contain grammatical, syntax or spelling errors. Dictated: 02/21/2023 8:52 AM Transcribed: 02/21/2023 9:30 AM Mauricio [id number] Electronically signed by: Mauro Marlow M.D. 02/21/2023 9:44 AM Thoracic Spine MRI 02/21/23 00:00 MR thoracic spine wo/w con CLINICAL HISTORY: t8 fx, eval hx met disease TECHNIQUE: Multiplanar sequences through the thoracic spine were obtained, without and with intravenous contrast. Comparison: None available at the time of this dictation. FINDINGS: Multilevel degenerative changes are seen. There is a compression deformity in T8 with edema and enhancement of the vertebral body and approximately 2 mm retropulsion, likely representing an acute pathologic fracture. Additional foci of enhancement are seen throughout the spine compatible with bony metastatic disease, most prominent at L1 and T11. The spinal canal and neural foramina are patent. Multilevel disc disease is seen without significant canal stenosis. There is suggestion of moderate neuroforaminal stenosis at the level of T8-T9. IMPRESSION: Scattered enhancing foci are seen in the spine concerning for bony metastatic disease with compression deformity at T8 with minimal retropulsion compatible with pathologic fracture. There is physician a moderate neuroforaminal stenosis at this level. ACT 112: Negative or not required by law. Electronically signed by: Teo Hratman M.D. 02/21/2023 10:16 AM Lumbar Spine X-Ray 02/21/23 07:49 XR lumbar spine 2-3V HISTORY: 67 years-old Female back pain acute mid to low back pain. COMPARISON: MRI thoracic and lumbar spine studies of same day. TECHNIQUE: 2 views of the lumbar spine FINDINGS: Chronic L2 and L3 compression deformities. Acute L1 compression fracture with approximately 50% vertebral body height loss is unchanged from the comparison MRI. Mild dextroscoliosis. Spondylitic spurring with facet arthrosis is unchanged. There is a 2.2 cm calcification within the abdominal left upper quadrant. Moderate fecal retention of the rectum and sigmoid. IMPRESSION: 1. Acute 50% superior endplate compression deformity of the L1 vertebral body without significant retropulsion is unchanged from yesterday's lumbar spine MRI. 2. Chronic L2 and L3 compression fractures. 3. Degenerative changes as above. 4. Dextroscoliosis. ACT 112: Negative or not required by law. The above report was generated using voice recognition software. It may contain grammatical, syntax or spelling errors. Electronically signed by: Mauro Marlow M.D. 02/21/2023 11:17 AM Thoracic Spine X-Ray 02/21/23 07:49 XR thoracic spine 3V routine CLINICAL HISTORY: back pain TECHNIQUE: 3 views of the thoracic spine were obtained. Comparison: Comparison is made to MRI thoracic spine 02/21/[address] chest 02/24/2022 FINDINGS: A right port catheter Anterior wedge deformity is noted at T8 which is new from CT chest performed 2021. Degenerative changes are seen in the thoracic spine. A lignment appears unremarkable. Prevertebral soft tissues are within normal limits. IMPRESSION: Compression fracture of the T8 vertebral body of unknown chronicity but favored to be acute given appearance on MRI. ACT 112: Negative or not required by law. Electronically signed by: Teo Hartman M.D. 02/21/2023 10:18 AM Bone Scan Nuclear Medicine 02/22/23 17:24 WHOLE-BODY NUCLEAR BONE SCAN CLINICAL HISTORY: Compression fractures. Concern for metastatic disease. Reported history of ovarian cancer. COMPARISON STUDY: CT scan of the chest, abdomen, and pelvis dated 02/20/2023. MRI of the thoracic spine dated 02/21/2023. MRI of the lumbar spine dated 02/20/2023.. TECHNIQUE: Three hours following the IV administration of 25.5 mCi of technetium 99m MDP, whole body nuclear bone scan was performed in the anterior and posterior projections. FINDINGS: There are no abnormal foci of tracer position typical in appearance for bony metastatic disease. There are foci of intense tracer uptake identified in the bodies of T8 and L1 at the site of known acute to subacute compression fractures. There is milder focal tracer uptake within the body of T11 corresponds to marrow edema and a Schmorl's node when correlated with the recent MRI. Additional foci of low-level activity in the spine are typical for degenerative change. Foci typically degenerative uptake are identified in the shoulders, hips, knees, and right ankle. There is an indeterminate focus of low-level uptake in the right proximal femoral shaft. There is expected excreted activity within the renal collecting system and bladder. IMPRESSION: 1. There is no clear scintigraphic evidence of bony metastatic disease. 2. Foci of intense tracer uptake within T8 and L1 are consistent with known compression fractures. These are likely osteoporotic. 3. An indeterminate focus of low level activity is seen in the right femoral shaft. Radiographic correlation is recommended. ACT 112: Negative or not required by law. Electronically signed by: Sarath Roy M.D. 02/22/2023 5:25 PM Femur X-Ray 02/23/23 11:39 XR femur RT 2V routine CLINICAL HISTORY: abnormal bone scan. Follow-up abnormal rotation uptake within the right femur. COMPARISON STUDY: Nuclear medicine bone scan 02/22/2023. Abdomen and pelvis CT 02/20/2023. FINDINGS: The low level radiotracer uptake within the right femoral shaft seen on the prior bone scan corresponds to expected periprosthetic radiotracer uptake status post internal fixation of an old, healed right femoral fracture. No acute fracture or dislocation within the right femur. The hardware appears intact. No abnormal periprosthetic lucency. No suspicious osseous lesions identified. Or posttraumatic changes also noted within the proximal tibia. Mild to moderate osteoarthritis at the right knee. Vascular calcifications are noted. IMPRESSION: 1. The low level radiotracer uptake within the right femoral shaft seen on the prior bone scan corresponds to expected periprosthetic radiotracer uptake status post internal fixation of an old, healed right femoral fracture. 2. No suspicious osseous lesions. 3. No acute fracture or dislocation. ACT 112: Negative or not required by law. Electronically signed by: Jesus Alberto Hollis M.D. 02/23/2023 1:00 PM Hospital Course (1) Back pain: Acute/unstable - ongoing pain for a week, worsening - imaging on admission noted L1/T8 compression fracture with no obvious trauma/injury in patient w/ hx metastatic ovarian ca, supposedly in remission (note, thyroid nodule noted by PCP) - Dr Mccurdy and Dr Rocha on consult, appreciate assistance - MRI of lumbar & thoracic spine: scattered enhancing foci in spine concerning for bony metastatic disease with compression deformity at T8 with minimal retropulsion compatible with pathologic fracture - Ordered CA125 - 7 - Full Body Bone Scan - No evidence of bony mets, T8 and L1 compression likely osteoporotic, indeterminate foci low level activity in Right Femur - Ordered Xray right femur - no suspicious osseous lesions, fracture, or dislocation - Pain control, bowel regimen as needed (Tylenol/Tramadol/morphine tiered) - Underwent kyphoplasty & biopsy with Dr. Mccurdy (02/26) - for pain control and to delineate diagnosis - Eliquis held for procedure - Today doing well post op, pain adequately controlled, will plan for dc home with f/u with Dr. Mccurdy (2) Chest pain: Acute/stable/resolved - ongoing chest/back pain x 1 week - CTA NEGATIVE for PE - trop 3.4 on initial check, EKG NSR. Last ECHO 2019 w/ LV systolic function normal. Moderate AI, trace-mild MR/TR - Suspect pain referred from her fractures - only pain with a deep inspiration - Incentive spirometer q1H while awake (3) Primary cancer of ovary with widespread metastatic disease: ? in remission - imaging for eval as above for concerns pathological fracture - Note: There is an indeterminant 1.8 cm ovoid hyperdense structure with central hypodensity seen in the left pelvis posterior to the bladder. This is new from previous and may be on a postsurgical basis. Attention at follow-up is recommended -will need f/u - She also notes R thyroid nodule her PCP is keeping an eye on as well - Possibly may need a repeat PET scan, last PET scan was 2019 - Consulted oncology, Dr Rocha who ordered Ca125 - 7 and bone scan revealed no evidence of bony mets, compression fractures likely osteoporotic - Plans for a PET scan as out patient (4) PAF (paroxysmal atrial fibrillation): Chronic/stable - on Eliquis 5mg BID, amiodarone 200mg daily. 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 - Also had recent U/S thyroid for a nodule and may eventually need FNA of the nodule, this is being followed by her PCP Plan Patient is medically and hemodynamically stable for discharge home today. Will plan for f/u with pcp and Dr. Mccurdy. Also f/u as scheduled with Dr. Rocha, oncology. Above plan of care to be d/w Dr. Johnson. Total Time Total Time Spent Total Time Spent (In Minutes): >30 minutes Discharge Plan Discharge Items Patient Disposition: Home - Self-Care Reason For Visit: 11 COMPRESSION FRACTURE, PAIN CONTROL Discharge Diagnosis: compression fracture of back Activity: Resume your previous activity Weightbearing Comment: do not lift more than 5 pounds Non-emergency contact: Primary Care Provider, Surgeon and Oncologist Call non-emergency contact if: you have any medication questions Follow-up/Referrals: Ramírez Alexander [Primary Care Provider] - Diet: Regular Addtl Attending Provider Instructions: You were hospitalized due to back pain due to a compression fracture. You were taken to the operating room and underwent a kyphoplasty as well as a bone biopsy by Dr. Mccurdy on 02/26. Since your pain is markedly improved, you will be discharged home today, 02/27. Please follow up with Dr. Mccurdy as scheduled. His office will contact you with a date and time for follow up. They will be able to go over your bone biopsy results at that time or will contact you sooner if needed. Please follow up with your family doctor within 1 week of discharge or sooner if needed. Follow up with your oncologist as scheduled. If you have any questions or concerns after you leave the hospital, call the nonemergen number listed on your paperwork. In the event of a medical emergency, call 911. Pending Studies at Discharge: Yes Studies:: bone biopsy Stand-Alone Forms: My [facility] [employer], Smoking Cessation Medications and DC Order Prescriptions: Continued (DME) Walking Cane Misc See Rx Instructions .ROUTE .MEDSUPPLY Qty: 1 0RF Rx Instructions: As directed rosuvastatin 10 mg tablet 10 mg PO HS Qty: 90 3RF Eliquis 5 mg tablet 5 mg PO BID Qty: 180 3RF amiodarone 200 mg tablet 200 mg PO DAILY 90 Days Qty: 90 3RF sennosides-docusate sodium [Senokot-S] 8.6-50 mg Tablet 1 tab PO HS tramadol 50 mg tablet 50 mg PO Q8H PRN (Reason: Pain) levothyroxine 175 mcg tablet 175 mcg PO QAM Admission Data Admit Date/Time: 02/22/23 12:29 Attending Provider: Bari Johnson Admit Provider: Micheal Cespedes Primary Care Provider: Ramírez Alexander Other Providers: Micheal Cespedes ; Thien Mccurdy Aderonke Coding Level of Care Code 43481 INP/OBS DISCH >30 MIN Diagnoses Back pain M54.9 Chest pain R07.9 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
== END 2023-02-27 15:32 | disposition home or self-care (01) | DRG 478 ==
LOC: 3W 11:53 → ED 11:53 → SUATTDRO 16:40 → 3W 18:15